=== PATIENT | male | born 1965 | race Caucasian/White ===

== ENCOUNTER 2018-02-05 16:43 | Emergency (ER) | payer OTHER, SELFPAY ==
[2018-02-05 16:48] VITALS: BP 168/94; PULSE 86; RESP 18; TEMP 36.9; O2SAT 97
--- NOTE | 2018-02-05 17:07 | ED.GENADUL ---
Disposition Clinical Impression: Rib fractures, Contusion of forearm, right Disposition: HOME Condition: Improving Instructions: Rib Fracture (ED) Additional Instructions: Use the incentive spirometer as directed several times throughout the hour every hour for the next several days to encourage deep breaths to prevent pneumonia. You can apply ice to the affected area several times daily. Take the oxycodone as needed and directed for pain. You can also try Tylenol and Motrin for pain. Call your primary care doctor tomorrow to schedule follow-up appointment for reevaluation. Return immediately to the emergency room with any worsening or new concerning symptoms per Prescriptions: OxyCODONE [Roxicodone] 5 mg PO Q6H PRN #15 tab PRN Reason: Pain Forms: Work Release Medical Decision Making - Lab Data Laboratory Tests 02/05/18 02/05/18 16:50 16:50 WBC 10.42 RBC 5.14 Hgb 16.3 Hct 46.9 MCV 91.2 MCH 31.7 MCHC 34.8 RDW 13.5 Plt Count 219 MPV 10.3 Immature Gran % 0.5 Neutrophils % 64.6 Lymphocytes % 21.3 Monocytes % 9.2 Eosinophils % 4.0 Basophils % 0.4 Absolute Neutrophils 6.73 H Absolute Lymphocytes 2.22 Absolute Monocytes 0.96 H Absolute Eosinophils 0.42 Absolute Basophils 0.04 Sodium 139 Potassium 4.2 Chloride 107 Carbon Dioxide 24.8 Anion Gap 7.2 BUN 21 H Creatinine 1.14 Estimated GFR/1.73 m2 >= 60.00 Glucose 85 Calcium 9.0 Magnesium 2.0 Total Bilirubin 0.4 Conjugated Bilirubin 0.09 AST 41 H ALT 57 Alkaline Phosphatase 99 Troponin I < 0.02 Total Protein 7.6 Albumin 4.2 Lipase 167 02/05/18 1717: [address] bpm. Sinus. No acute ST elevation or depression. - Radiology Data Radiology results: report reviewed, image reviewed CT head: No acute findings. CT cervical spine: No acute fracture dislocation. Right forearm x-ray: Negative CT chest with IV contrast: 1. Nondisplaced fracture posterior left ninth rib. Displaced fracture posterior left 10th rib. 2. Mild opacities in the lower lobes may represent atelectasis or contusions. CT abdomen and pelvis with IV contrast: Negative - Medical Decision Making 1700 --52-year-old male who presents with left lateral rib pain, left paraspinal thoracic and lumbar spine pain, and left mid and lower abdominal pain after fall down 5 feet out of truck after missing a step at work today. Patient has not taken anything for pain. Patient was able to ambulate back to the room. His airway is intact and speaking in full sentences. Lungs clear to auscultation. No crepitus. Due to lateral rib and abdominal pain, will place an IV, bolus IV fluids, blunt cardiac injury workup including troponin, EKG, CT chest abdomen and pelvis. Pt is also complaining of pain in right forearm but no deformity. No other extremity deformity. Will obtain right forearm x-ray. Patient cannot take morphine due to it making him feel crazy. Will give a dose of Dilaudid. 1814 --labs and imaging reviewed. Labs unremarkable. EKG unremarkable. CT head, C-spine, abdomen and pelvis, and forearm x-ray negative. CT chest notes nondisplaced ninth rib and displaced 10th rib fractures. They also note lower lobes atelectasis versus contusions. We will send imaging to [facility] trauma for evaluation if agree with pulmonary contusions and any recommendations. 1899 --discussed with [facility] trauma - unable to view imaging but states more than 75% of rib fractures have some sort of mild to moderate pulmonary contusion. Concern would mainly be if patient cannot pull good volumes with incentive spirometer. If patient able to pull greater than a liter with incentive spirometer, can be discharged home. If patient can pull 800 mL or less, continue attempts at incentive spirometer and medicate for pain control. If patient only pulls then 200 mL or is unable to consistently pull at least 800, recommend to admit for observation. 1999 --patient able to obtain 1250 mL lung volumes with incentive spirometer. Patient feels much better. Patient states he feels good to go home. We will send home with doses of oxycodone and prescription for home. Instructed on the importance of the incentive spirometer to prevent the development of pneumonia. Patient instructed to call his primary care doctor tomorrow to schedule follow-up appointment for reevaluation this week and return to the ER if worse. History of Present Illness - General Chief complaint: Trauma Stated complaint: TRAUMA Time Seen by Provider: 02/05/18 16:44 Source: patient Mode of arrival: ambulatory Limitations: no limitations - History of Present Illness Initial comments: Patient is a 52-year-old male who presents with left lower lateral rib and left lower abdominal pain today after fall out of truck at work. Patient states he missed a step and fell out of his truck and fell onto his left side. States he is unsure if he hit his head but does not remember a period of time after the accident. Unknown LOC. Denies vomiting. Patient is complaining of pain in his left lateral rib cage, left upper and lower back, and left lower abdomen. He denies neck pain. - Related Data Cyclobenzaprine [Flexeril] 10 mg PO TID PRN #14 tab 09/08/13 Ibuprofen 800 mg PO TID PRN #30 tablet 09/08/13 OxyCODONE/APAP 5 mg/325 mg [Percocet 5 mg/325 mg] 1 tab PO Q6H PRN #14 tab 09/08/13 Omeprazole 20 mg PO DAILY 12/26/13 Ondansetron ODT [Zofran Odt] 8 mg PO TID #10 tabef 04/15/16 Pantoprazole [Protonix] 40 mg PO DAILY #20 tabcr 04/15/16 OxyCODONE [Roxicodone] 5 mg PO Q6H PRN #15 tab 02/05/18 Allergies Allergy/AdvReac Type Severity Reaction Status Date / Time morphine Allergy Intermediate Psychosis Unverified 12/26/13 23:12 shellfish derived Allergy Unknown Nausea Unverified 04/15/16 14:56 Review of Systems Constitutional: denies: chills, fever Eyes: denies: eye pain ENT: denies: ear pain, dental pain Respiratory: denies: cough, shortness of breath Cardiovascular: denies: chest pain, dyspnea on exertion Gastrointestinal: denies: abdominal pain, nausea, vomiting Genitourinary: denies: urgency, dysuria, frequency Musculoskeletal: denies: back pain Skin: denies: rash, lesions Neurological: denies: headache, weakness, numbness Past Medical History - Past Medical History Medical history: GERD Surgical history: other (Lumbar fusion ?3, right rotator cuff repair, right leg surgery) Family history: CAD/[place] (mother), diabetes (father) - Social History Smoking status: current everyday smoker Alcohol use: rarely Drug use: none General Exam - General Limitations: no limitations General appearance: alert, in no apparent distress - Head Head exam: Present: atraumatic, normocephalic - Eye Eye exam: Present: PERRL, EOMI - ENT ENT exam: Present: normal orophraynx, mucous membranes moist, TM's normal bilaterally - Neck Neck exam: Present: normal inspection, other (No midline cervical spine tenderness) - Respiratory Respiratory exam: Present: normal lung sounds bilaterally, other (Given tenderness palpation of left lateral rib cage.). Absent: respiratory distress, wheezes, rales, rhonchi, stridor - Cardiovascular Cardiovascular Exam: Present: regular rate, normal rhythm. Absent: bradycardia, tachycardia - GI/Abdominal GI/Abdominal exam: Present: soft, tenderness (Left mid and lower quadrant), normal bowel sounds. Absent: distended, guarding, rebound, rigid - exam: Present: normal inspection - Extremities Exam Extremities exam: Present: other (Tenderness to palpation of right medial mid forearm without evidence of trauma. Pain in left anterior shoulder with range of motion without obvious deformity, tenderness to palpation or edema or ecchymosis. Full range of motion of hips bilaterally without pain. No pelvic instability.) - Back Exam Back exam: Present: normal inspection, other (Tenderness to palpation extending from left lateral paraspinal region down to left lateral lumbar spine region. No midline thoracic or lumbar spine tenderness.) - Neurological Exam Neurological exam: Present: alert, oriented X3. Absent: motor sensory deficit - Psychiatric Psychiatric exam: Present: normal affect - Skin Skin exam: Present: warm, dry, intact Course Vital Signs - 24 hr 02/05/18 16:48 Temperature 98.4 F Pulse 86 Respiratory 18 Rate Blood Pressure 168/94 Pulse Oximetry 97
--- NOTE | 2018-02-05 17:08 | DI.RPTCT_ITS ---
SYMPTOM/DIAGNOSIS: S/P FALL OUT OF TRUCK, ? LT RIB FX, LIVER LACERATION, INTRACRANIAL ABNORMALITY OR CERVICAL FX, TENDERNESS RT FOREARM NONCONTRAST HEAD CT: Comparison is made with 09/08/13. There is a normal encinas white matter differentiation. The ventricles are intact. The basilar cisterns are patent. No acute intracranial hemorrhage, infarct or midline shift. Mild mucosal thickening is seen in the ethmoid air cells and the left sphenoid sinus. No fluid levels are seen. The mastoid air cells are well pneumatized. No evidence of a calvarial fracture. IMPRESSION: No acute intracranial process. CERVICAL SPINE CT; There is normal alignment of the cervical spine. No acute fractures or subluxations are seen. There are degenerative changes seen in the cervical spine most marked at C 5-6 and C 6-7. The soft tissues are unremarkable. The lung apices are clear. IMPRESSION: No acute fracture or subluxation in the cervical spine. CHEST/ABDOMEN AND PELVIC CT: CT scan of the chest, abdomen and pelvis was performed following the uneventful administration of intravenous contrast material. There are no priors for comparison. ABDOMEN AND PELVIS: The liver, spleen, pancreas, gallbladder and adrenal glands are unremarkable. No evidence of organ injury is seen. The kidneys show normal and symmetric enhancement. There are right renal cysts present. No solid renal mass or obstruction is identified. The urinary bladder is intact. The reproductive organs are unremarkable. There is mild diverticulosis seen of the sigmoid colon but no evidence of acute diverticulitis. The bowel shows no evidence of obstruction or inflammation. There is a normal appendix present. There is atherosclerosis of the abdominal aorta but no aneurysmal dilatation. No significant abdominal or pelvic adenopathy, ascites or pneumoperitoneum is present. There is a small fat containing umbilical hernia. Post surgical changes are seen in the lumbar spine at L 5-S 1 with a laminectomy , disc fusion and posterior spinal rods. There is a nondisplaced fracture of the left transverse process of L 2. IMPRESSION: 1. Nondisplaced fracture of the left transverse process of L 2. Otherwise no acute abdomen or pelvic findings. CHEST: The thoracic aorta is of normal caliber. Heart size is within normal limits. No significant pericardial effusion is seen. Mild coronary artery calcification is present. No significant mediastinal, hilar or axillary adenopathy is present. No pleural effusion is seen. There is no evidence of a pneumothorax. Mild paraseptal emphysematous changes are present. There are infiltrates seen in the dependent portions of the lungs bilaterally. No consolidating infiltrates are seen. The tracheobronchial tree is unremarkable. There is a mildly displaced fracture of the posterior aspect of the left tenth rib. There is a nondisplaced fracture of the posterior aspects of the left eighth and ninth ribs. Degenerative changes are present in the spine. IMPRESSION: 1. Fractures involving the left eighth, ninth and tenth ribs as described. 2. Bilateral basilar dependent infiltrates. These may represent atelectasis or contusion. RIGHT FOREARM: Two views. No acute fracture or dislocation is seen. There is a well corticated tiny osseous fragment adjacent to the coronoid process likely reflecting old injury. No radiopaque foreign bodies are seen in the soft tissues. IMPRESSION: No acute abnormality.
--- NOTE | 2018-02-05 17:11 | ED.GENADUL_ITS ---
Disposition Clinical Impression: Rib fractures, Contusion of forearm, right Disposition: HOME Condition: Improving Instructions: Rib Fracture (ED) Additional Instructions: Use the incentive spirometer as directed several times throughout the hour every hour for the next several days to encourage deep breaths to prevent pneumonia. You can apply ice to the affected area several times daily. Take the oxycodone as needed and directed for pain. You can also try Tylenol and Motrin for pain. Call your primary care doctor tomorrow to schedule follow-up appointment for reevaluation. Return immediately to the emergency room with any worsening or new concerning symptoms per Prescriptions: OxyCODONE [Roxicodone] 5 mg PO Q6H PRN #15 tab PRN Reason: Pain Forms: Work Release Medical Decision Making - Lab Data Laboratory Tests 02/05/18 02/05/18 16:50 16:50 WBC 10.42 RBC 5.14 Hgb 16.3 Hct 46.9 MCV 91.2 MCH 31.7 MCHC 34.8 RDW 13.5 Plt Count 219 MPV 10.3 Immature Gran % 0.5 Neutrophils % 64.6 Lymphocytes % 21.3 Monocytes % 9.2 Eosinophils % 4.0 Basophils % 0.4 Absolute Neutrophils 6.73 H Absolute Lymphocytes 2.22 Absolute Monocytes 0.96 H Absolute Eosinophils 0.42 Absolute Basophils 0.04 Sodium 139 Potassium 4.2 Chloride 107 Carbon Dioxide 24.8 Anion Gap 7.2 BUN 21 H Creatinine 1.14 Estimated GFR/1.73 m2 >= 60.00 Glucose 85 Calcium 9.0 Magnesium 2.0 Total Bilirubin 0.4 Conjugated Bilirubin 0.09 AST 41 H ALT 57 Alkaline Phosphatase 99 Troponin I < 0.02 Total Protein 7.6 Albumin 4.2 Lipase 167 02/05/18 1717: 82 bpm. Sinus. No acute ST elevation or depression. - Radiology Data Radiology results: report reviewed, image reviewed CT head: No acute findings. CT cervical spine: No acute fracture dislocation. Right forearm x-ray: Negative CT chest with IV contrast: 1. Nondisplaced fracture posterior left ninth rib. Displaced fracture posterior left 10th rib. 2. Mild opacities in the lower lobes may represent atelectasis or contusions. CT abdomen and pelvis with IV contrast: Negative - Medical Decision Making 1700 --52-year-old male who presents with left lateral rib pain, left paraspinal thoracic and lumbar spine pain, and left mid and lower abdominal pain after fall down 5 feet out of truck after missing a step at work today. Patient has not taken anything for pain. Patient was able to ambulate back to the room. His airway is intact and speaking in full sentences. Lungs clear to auscultation. No crepitus. Due to lateral rib and abdominal pain, will place an IV, bolus IV fluids, blunt cardiac injury workup including troponin, EKG, CT chest abdomen and pelvis. Pt is also complaining of pain in right forearm but no deformity. No other extremity deformity. Will obtain right forearm x-ray. Patient cannot take morphine due to it making him feel crazy. Will give a dose of Dilaudid. 1814 --labs and imaging reviewed. Labs unremarkable. EKG unremarkable. CT head, C-spine, abdomen and pelvis, and forearm x-ray negative. CT chest notes nondisplaced ninth rib and displaced 10th rib fractures. They also note lower lobes atelectasis versus contusions. We will send imaging to [facility] trauma for evaluation if agree with pulmonary contusions and any recommendations. 1899 --discussed with [facility] trauma - unable to view imaging but states more than 75% of rib fractures have some sort of mild to moderate pulmonary contusion. Concern would mainly be if patient cannot pull good volumes with incentive spirometer. If patient able to pull greater than a liter with incentive spirometer, can be discharged home. If patient can pull 800 mL or less, continue attempts at incentive spirometer and medicate for pain control. If patient only pulls then 200 mL or is unable to consistently pull at least 800 , recommend to admit for observation. 1999 --patient able to obtain 1250 mL lung volumes with incentive spirometer. Patient feels much better. Patient states he feels good to go home. We will send home with doses of oxycodone and prescription for home. Instructed on the importance of the incentive spirometer to prevent the development of pneumonia. Patient instructed to call his primary care doctor tomorrow to schedule follow- up appointment for reevaluation this week and return to the ER if worse. History of Present Illness - General Chief complaint: Trauma Stated complaint: TRAUMA Time Seen by Provider: 02/05/18 16:44 Source: patient Mode of arrival: ambulatory Limitations: no limitations - History of Present Illness Initial comments: Patient is a 52-year-old male who presents with left lower lateral rib and left lower abdominal pain today after fall out of truck at work. Patient states he missed a step and fell out of his truck and fell onto his left side. States he is unsure if he hit his head but does not remember a period of time after the accident. Unknown LOC. Denies vomiting. Patient is complaining of pain in his left lateral rib cage, left upper and lower back, and left lower abdomen. He denies neck pain. - Related Data Cyclobenzaprine [Flexeril] 10 mg PO TID PRN #14 tab 09/08/13 Ibuprofen 800 mg PO TID PRN #30 tablet 09/08/13 OxyCODONE/APAP 5 mg/325 mg [Percocet 5 mg/325 mg] 1 tab PO Q6H PRN #14 tab 09/08 Omeprazole 20 mg PO DAILY 12/26/13 Ondansetron ODT [Zofran Odt] 8 mg PO TID #10 tabef 04/15/16 Pantoprazole [Protonix] 40 mg PO DAILY #20 tabcr 04/15/16 OxyCODONE [Roxicodone] 5 mg PO Q6H PRN #15 tab 02/05/18 Allergies Allergy/AdvReac Type Severity Reaction Status Date / Time morphine Allergy Intermediate Psychosis Unverified 12/26/13 23:12 shellfish derived Allergy Unknown Nausea Unverified 04/15/16 14:56 Review of Systems Constitutional: denies: chills, fever Eyes: denies: eye pain ENT: denies: ear pain, dental pain Respiratory: denies: cough, shortness of breath Cardiovascular: denies: chest pain, dyspnea on exertion Gastrointestinal: denies: abdominal pain, nausea, vomiting Genitourinary: denies: urgency, dysuria, frequency Musculoskeletal: denies: back pain Skin: denies: rash, lesions Neurological: denies: headache, weakness, numbness Past Medical History - Past Medical History Medical history: GERD Surgical history: other (Lumbar fusion 3, right rotator cuff repair, right leg surgery) Family history: CAD/[place] (mother), diabetes (father) - Social History Smoking status: current everyday smoker Alcohol use: rarely Drug use: none General Exam - General Limitations: no limitations General appearance: alert, in no apparent distress - Head Head exam: Present: atraumatic, normocephalic - Eye Eye exam: Present: PERRL, EOMI - ENT ENT exam: Present: normal orophraynx, mucous membranes moist, TM's normal bilaterally - Neck Neck exam: Present: normal inspection, other (No midline cervical spine tenderness) - Respiratory Respiratory exam: Present: normal lung sounds bilaterally, other (Given tenderness palpation of left lateral rib cage.). Absent: respiratory distress, wheezes, rales, rhonchi, stridor - Cardiovascular Cardiovascular Exam: Present: regular rate, normal rhythm. Absent: bradycardia , tachycardia - GI/Abdominal GI/Abdominal exam: Present: soft, tenderness (Left mid and lower quadrant), normal bowel sounds. Absent: distended, guarding, rebound, rigid - exam: Present: normal inspection - Extremities Exam Extremities exam: Present: other (Tenderness to palpation of right medial mid forearm without evidence of trauma. Pain in left anterior shoulder with range of motion without obvious deformity, tenderness to palpation or edema or ecchymosis. Full range of motion of hips bilaterally without pain. No pelvic instability.) - Back Exam Back exam: Present: normal inspection, other (Tenderness to palpation extending from left lateral paraspinal region down to left lateral lumbar spine region. No midline thoracic or lumbar spine tenderness.) - Neurological Exam Neurological exam: Present: alert, oriented X3. Absent: motor sensory deficit - Psychiatric Psychiatric exam: Present: normal affect - Skin Skin exam: Present: warm, dry, intact Course Vital Signs - 24 hr 02/05/18 16:48 Temperature 98.4 F Pulse 86 Respiratory 18 Rate Blood Pressure 168/94 Pulse Oximetry 97
[2018-02-05 17:18] LABS: Abs Immature Grans 0.05 k/cumm (0.0-0.09); Absolute Basophil Count 0.04 k/cumm (0.0-0.2); Absolute Eosinophil Count 0.42 k/cumm (0.0-0.7); Absolute Lymphocyte Count 2.22 k/cumm (1.2-3.4); Absolute Monocyte Count 0.96 k/cumm (0.11-0.7); Absolute Neutrophil Count 6.73 k/cumm (1.2-6.7); Basophils % 0.4; HCT 46.9 % (40.0-50.0); HGB 16.3 g/dL (13.5-17.5); Immature Grans % 0.5; Lymphocytes % 21.3; Mean Corp. HGB Concentration 34.8 g/dL (32.0-36.0); Mean Corpuscular Hemoglobin 31.7 pg (27.0-33.0); Mean Corpuscular Volume 91.2 fL (80-95); Mean Platelet Volume 10.3 fL (8.0-11.0); Monocytes % 9.2; Neutrophils % 64.6; Platelet Count 219 x1000/uL (130-400); RBC 5.14 m/cumm (4.50-6.00); RBC Distribution Width 13.5 % (11.8-14.1); White Blood Cell Count 10.42 k/cumm (4.4-10.8)
[2018-02-05] MEDS: HYDROmorphone 2 MG/ML VIAL 1 MG IVP ×2 (17:31→18:40)
[2018-02-05 17:32] LABS: ALT 57 U/L (12-78); AST 41 U/L (15-37); Albumin 4.2 g/dL (3.4-5.0); Alkaline Phosphatase 99 U/L (46-116); Anion Gap 7.2 mmol/L (3-11); BUN 21 mg/dL (7-18); Bilirubin, Direct 0.09 mg/dL (0.00-0.20); Bilirubin, Total 0.4 mg/dL (0.2-1.0); CO2 24.8 mmol/L (21.0-32.0); CREATININE 1.14 mg/dL (0.70-1.30); Chloride 107 mmol/L (98-107); Glucose 85 mg/dL (70-100); Lipase 167 U/L (73-393); Potassium 4.2 mmol/L (3.5-5.1); Sodium 139 mmol/L (136-145); Total Protein 7.6 g/dL (6.4-8.2); Troponin I < 0.02 ng/mL (0.00-0.06)
[2018-02-05] MEDS: Normal Saline 1,000 ML 1000 ML IV (17:33)
--- NOTE | 2018-02-05 18:13 | DI.VRAD_ITS ---
EXAM: CT Head Without Intravenous Contrast EXAM DATE/TIME: 02/05/2018 5:10 PM CLINICAL HISTORY: 52 years old, male; Injury or trauma; Fall; Initial encounter; Patient HX: S/P fall off trailer; Additional info: R/O acute intracranial abnormality/cervical FX TECHNIQUE: Axial computed tomography images of the head/brain without intravenous contrast. Coronal and sagittal reformatted images were created and reviewed. COMPARISON: CT - HEAD WITHOUT CONTRAST 09/08/2013 1:11 PM FINDINGS: Brain: Normal. No hemorrhage. No significant white matter disease. No edema. Ventricles: Normal. No ventriculomegaly. Bones/joints: Normal. No acute fracture. Sinuses: There is mucosal thickening in the left sphenoid sinus. Mastoid air cells: Normal as visualized. No mastoid effusion. Soft tissues: Normal. IMPRESSION: No evidence of intracranial hemorrhage or calvarial fracture.There has been no significant change in comparison to the prior examination. Remainder of non-emergent findings as described above. EXAM: CT Cervical Spine Without Intravenous Contrast EXAM DATE/TIME: 02/05/2018 5:10 PM CLINICAL HISTORY: 52 years old, male; Injury or trauma; Fall; Initial encounter; Patient HX: S/P fall off trailer; Additional info: R/O acute intracranial abnormality/cervical FX TECHNIQUE: Axial computed tomography images of the cervical spine without intravenous contrast. Coronal and sagittal reformatted images were created and reviewed. COMPARISON: CT - HEAD WITHOUT CONTRAST 09/08/2013 1:11 PM FINDINGS: Vertebrae: There is no evidence of acute fracture.There is normal sagittal alignment. Discs/Spinal canal/Neural foramina: There is narrowing of the C5-6 disc space with a reactive end plate sclerosis and marginal osteophytes. Soft tissues: Unremarkable. Lung apices: Normal. IMPRESSION: No evidence of acute fracture or dislocation. Remainder of non-emergent findings as described above. Dictated and Authenticated by: Maria Esther Cruz MD. Ordering:ADEOLA TSAI MD
--- NOTE | 2018-02-05 18:14 | DI.VRAD_ITS ---
EXAM: XR Right Forearm, 2 Views EXAM DATE/TIME: 02/05/2018 6:00 PM CLINICAL HISTORY: 52 years old, male; Injury or trauma; Fall; Initial encounter; Sprain or strain; Arm, lower; Right TECHNIQUE: XR Right forearm 2 views. COMPARISON: CR - RIGHT FOREARM 11/08/2011 4:24 PM FINDINGS: Bones/joints: Well-corticated ossific fragment adjacent to the coronoid process may represent old avulsion fracture. No acute fracture is identified. Soft tissues: Normal. IMPRESSION: No acute fracture is identified. Dictated and Authenticated by: Angel Chan MD. Ordering:ADEOLA TSAI MD
--- NOTE | 2018-02-05 18:24 | DI.VRAD_ITS ---
EXAM: CT Chest With Intravenous Contrast CLINICAL HISTORY: 52 years old, male; Injury or trauma; Fall; Patient HX: S/P fall out off trailer; Additional info: R/O l rib fractures/[place] TECHNIQUE: Axial computed tomography images of the chest with intravenous contrast. Coronal and sagittal reformatted images were created and reviewed. COMPARISON: No relevant prior studies available. FINDINGS: Lungs: Mild opacities in the lower lobes may represent atelectasis or contusions. Pleural space: Unremarkable. No pneumothorax. No significant effusion. Heart: Unremarkable. No cardiomegaly. No significant pericardial effusion. Bones/joints: Nondisplaced fracture posterior left ninth rib. Displaced fracture posterior left 10th rib. No dislocation. Soft tissues: Unremarkable. Vasculature: Unremarkable. No thoracic aortic aneurysm. Lymph nodes: Unremarkable. No enlarged lymph nodes. IMPRESSION: 1. Nondisplaced fracture posterior left ninth rib. Displaced fracture posterior left 10th rib. 2. Mild opacities in the lower lobes may represent atelectasis or contusions. EXAM: CT Abdomen and Pelvis With Intravenous Contrast CLINICAL HISTORY: 52 years old, male; Injury or trauma; Fall; Patient HX: S/P fall out off trailer; Additional info: R/O l rib fractures/[place] l[place] TECHNIQUE: Axial computed tomography images of the abdomen and pelvis with intravenous contrast. Coronal and sagittal reformatted images were created and reviewed. COMPARISON: No relevant prior studies available. FINDINGS: ABDOMEN: Liver: No evidence of a liver laceration No mass. Gallbladder and bile ducts: Unremarkable. No calcified stones. No ductal dilation. Pancreas: Unremarkable. No mass. No ductal dilation. Spleen: Unremarkable. No splenomegaly. Adrenals: Unremarkable. No mass. Kidneys and ureters: 15 mm cyst in the right kidney No hydronephrosis. Stomach and bowel: Unremarkable. No obstruction. No mucosal thickening. PELVIS: Appendix: No findings to suggest acute appendicitis. Bladder: Unremarkable. No mass. Reproductive: Unremarkable as visualized. ABDOMEN and PELVIS: Intraperitoneal space: Unremarkable. No free air. No significant fluid collection. Bones/joints: No acute fracture. No dislocation. Soft tissues: Unremarkable. Vasculature: Unremarkable. No abdominal aortic aneurysm. Lymph nodes: Unremarkable. No enlarged lymph nodes. Tubes, lines and devices: Internal fixation device L5/S1 IMPRESSION: No acute findings. Dictated and Authenticated by: Angel Chan MD. Ordering:ADEOLA TSAI MD
[2018-02-05] MEDS: oxyCODONE 10 MG TAB PO (19:47)
[2018-02-05] MEDS: oxyCODONE 5 MG TAB 10 MG PO (20:47)
[2018-02-05 21:08] VITALS: BP 162/98; PULSE 76; RESP 18; O2SAT 95
--- NOTE | 2018-02-06 09:18 | PDOC.ERCMPRO ---
Care Management Progress Note 02/06-Dr. Gonzalez requested assistance with an occupational health f/u in two days for rib fractures. Called [facility] and spoke with Carolann. Craolann scheduled Reji for Monday, 02/09 at 1045 with Jacqueline. Called Reji back and he stated he could make appt. Reji works for [employer]. Reji has not completed the first report of injury but states he will call [employer] this morning and complete appropriate paperwork.
--- NOTE | 2018-02-06 09:20 | CMPROGNOTE_ITS ---
Care Management Progress Note 02/06-Dr. Gonzalez requested assistance with an occupational health f/u in two days for rib fractures. Called [facility] and spoke with Carolann. Carolann scheduled Reji for Monday , 02/09 at 1045 with Jacqueline. Called Reji back and he stated he could make appt. Reji works for [employer]. Reji has not completed the first report of injury but states he will call [employer] this morning and complete appropriate paperwork.
== END 2018-02-05 20:58 | disposition home or self-care (01) ==
PROVIDERS: Emergency Provider Physician Assistant; PCP General Practice
DX: S22.42XA Multiple fractures of ribs, left side, initial encounter for closed fracture (principal); S50.11XA Contusion of right forearm, initial encounter; R10.30 Lower abdominal pain, unspecified; V68.0XXA Driver of heavy transport vehicle injured in noncollision transport accident in nontraffic accident, initial encounter; W10.8XXA Fall (on) (from) other stairs and steps, initial encounter
CPT/HCPCS: 36415; 74177; 80053; 80076; 83690; 93005; 96361; 96374; 99285; 70450; 71260; 72125; 73090; 83735; 84484; 85025; 93010

== ENCOUNTER 2018-02-09 04:39 | Emergency (ER) | payer OTHER, SELFPAY ==
[2018-02-09 04:44] VITALS: BP 159/96; PULSE 85; RESP 20; TEMP 36.7; O2SAT 93
--- NOTE | 2018-02-09 04:50 | DI.REPORT_ITS ---
SYMPTOM/DIAGNOSIS: LT CHEST PAIN, H/O RIB FRACTURES, RECENT TRAUMA FRONTAL AND LATERAL CHEST: Comparison is made with 04/15/16. Heart size and pulmonary vasculature are within normal limits. There is poor inspiration. There is an area of consolidation in the left lung base. There may also be a small left pleural effusion. No pneumothorax is identified. Degenerative changes are seen in the spine. IMPRESSION: Left lower lobe consolidation. This may represent atelectasis or pneumonia. A follow up chest xray to document resolution of the consolidation is recommended in this patient.
--- NOTE | 2018-02-09 04:53 | ED.GENADUL ---
Disposition Clinical Impression: Multiple fractures of ribs of left side Disposition: HOME Instructions: Rib Fracture (ED) Additional Instructions: Continue to use incentive spirometer every few hours while awake for the next 2 weeks. Please follow-up with your primary care physician and occupational health. Please take ibuprofen 600 mg by mouth every 6-8 hours as needed for pain for the next few days. Please take tylenol (acetaminophen) 650 mg every 6 hours as needed for pain. Take oxycodone as prescribed. Use Lidoderm patches as prescribed. Return to the emergency department immediately for any worsening or new concerning symptoms. Prescriptions: Lidocaine 5% [Lidoderm 5% Patch] 1 each TP DAILY PRN PRN #15 patch PRN Reason: Pain Referrals: Levi Nelson MD [Primary Care Provider] - Occupational Medicine [Outside] Medical Decision Making - Medical Decision Making 5:00 --52-year-old male here with worsening left chest pain four days after fall resulting in nondisplaced fractures of the posterior aspects of the left eighth and ninth ribs, as well as mildly displaced fracture of the posterior aspect of the left 10th rib and bilateral basilar pulmonary contusion versus atelectasis. Plan to treat with Toradol IM as well as morphine IM. Consider acute pneumothorax versus pain from displaced rib fracture. Plan to chest x-ray. 5:40 --chest x-ray interpreted by radiology: Nonspecific left base atelectasis/consolidation. No pneumothorax. Patient reassessed and notes improved pain after medication. I reviewed pain medication with patient including: Oxycodone, ibuprofen and acetaminophen as well as Lidoderm patches. Patient has follow-up appointment occupational medicine today which I advised he keep. Patient was advised to return to the ER immediately should he have any worsening or new concerning symptoms. History of Present Illness - General Chief complaint: Chest/Rib Stated complaint: UNKNOWN Time Seen by Provider: 02/09/18 04:50 Source: patient, family, RN notes reviewed Mode of arrival: ambulatory Limitations: no limitations - History of Present Illness Initial comments: 52-year-old male recently seen here in ED and diagnosed with rib fractures and pulmonary contusion after fall from 5 feet to the ground on 02/05, presenting tonight with worsening left lateral chest pain. Pain is severe. Worse with deep inspiration. Pain is localized to his left lower lateral chest. Patient has no associated shortness of breath. Patient has been taking oxycodone as prescribed and notes that he had had improvement in pain yesterday but that it was worse tonight after an episode of sneezing. - Related Data Ibuprofen 800 mg PO TID PRN #30 tablet 09/08/13 Omeprazole 20 mg PO DAILY 12/26/13 Ondansetron ODT [Zofran Odt] 8 mg PO TID #10 tabef 04/15/16 Pantoprazole [Protonix] 40 mg PO DAILY #20 tabcr 04/15/16 OxyCODONE [Roxicodone] 5 mg PO Q6H PRN #15 tab 02/05/18 Lidocaine 5% [Lidoderm 5% Patch] 1 each TP DAILY PRN PRN #15 patch 02/09/18 Allergies Allergy/AdvReac Type Severity Reaction Status Date / Time shellfish derived Allergy Unknown Nausea Unverified 02/09/18 04:46 hydromorphone [From Dilaudid] AdvReac Psychosis Unverified 02/09/18 04:53 Review of Systems Respiratory: denies: shortness of breath Cardiovascular: chest pain Comment: All other systems reviewed and negative Past Medical History - Past Medical History Medical history: GERD Surgical history: other (Lumbar fusion ?3, right rotator cuff repair, right leg surgery) Family history: CAD/[place] (mother), diabetes (father) - Social History Alcohol use: rarely Drug use: none General Exam - General Limitations: no limitations General appearance: alert, other (in pain with certain positions) - Head Head exam: Present: normocephalic - ENT ENT exam: Present: mucous membranes moist - Neck Neck exam: Present: other (No JVD) - Respiratory Respiratory exam: Present: normal lung sounds bilaterally, other (Splinting with deep inspiration). Absent: respiratory distress, wheezes, rales, rhonchi - Cardiovascular Cardiovascular Exam: Present: regular rate, normal rhythm, normal heart sounds - GI/Abdominal GI/Abdominal exam: Present: soft. Absent: distended, tenderness - Neurological Exam Neurological exam: Present: alert. Absent: altered - Psychiatric Psychiatric exam: Present: normal affect - Skin Skin exam: Present: warm, dry, intact. Absent: cyanosis, diaphoretic Course Vital Signs - 24 hr 02/09/18 04:44 Temperature 36.7 C Pulse 85 Respiratory 20 Rate Blood Pressure 159/96 Pulse Oximetry 93 L
[2018-02-09] MEDS: MORPHine 10 MG/ML VIAL 4 MG IM (05:04)
[2018-02-09] MEDS: Ketorolac 15 MG/ML VIAL IM (05:04)
[2018-02-09] MEDS: Lidocaine 5% Patch 1 PATCH TP ×2 (05:13→05:23)
--- NOTE | 2018-02-09 05:32 | DI.VRAD_ITS ---
EXAM: XR Chest, 2 Views CLINICAL HISTORY: 52 years old, male; Pain; Chest pain; Left-sided chest pain; Patient HX: Recent trauma 02/05/18 with known left 9th and 10th rib FX and extreme pain this am after coughing TECHNIQUE: Frontal and lateral views of the chest. COMPARISON: CR - CHEST 2 VIEWS PA,LAT 04/15/2016 3:39 PM FINDINGS: Lungs: Nonspecific left base atelectasis/consolidation. Pleural space: Unremarkable. No pneumothorax. Heart: Unremarkable. No cardiomegaly. Mediastinum: Unremarkable. Bones/joints: Unremarkable. IMPRESSION: Nonspecific left base atelectasis/consolidation. Dictated and Authenticated by: Tito Suresh MD. Ordering:MONO PAGE MD
[2018-02-09 05:52] VITALS: BP 159/96; PULSE 85; RESP 20; TEMP 36.7; O2SAT 97
[2018-02-09 05:53] VITALS: O2SAT 98
== END 2018-02-09 05:52 | disposition home or self-care (01) ==
LOC: ER 02-10 10:14
PROVIDERS: Emergency Provider Student in an Organized Health Care Education/Training Program; PCP General Practice
DX: S22.42XA Multiple fractures of ribs, left side, initial encounter for closed fracture (principal); V68.0XXA Driver of heavy transport vehicle injured in noncollision transport accident in nontraffic accident, initial encounter; W10.8XXA Fall (on) (from) other stairs and steps, initial encounter
CPT/HCPCS: 96372; 99284; 71046; J1885; J2270

== ENCOUNTER 2018-02-09 11:12 | Outpatient (CLI) | payer OTHER, SELFPAY ==
--- NOTE | 2018-02-09 15:41 | ONE_ITS ---
DATE OF SERVICE: February 09, 2018 CHIEF COMPLAINT: Fall from truck. 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 ASSESSMENT: 1. Rib fractures 8, 9, and 10. 2. Lumbar fracture L2 left transverse process. 3. Bilateral fine rales. PLAN: 1. Work restrictions per Work Status Form - no work. 2. Activity as tolerated. 3. [place] diet to minimize nausea. 4. Continue with prescribed Lidoderm patch, Tylenol, ibuprofen. 5. Cough and deep breathe q1h while awake. 6. ROM cervical and lumbar spine, shoulder and hips q1h while awake. 7. Temp b.i.d. if more than 100.4, cough and deep breathe and re-take temp. Monitor for increased trends. 8. Neurology consult. 9. Follow-up one week; return to clinic or E.D. sooner if condition worsens. More than 50% of this visit spent in the planning and coordination of care. Plan of care reviewed with patient, who verbalized understanding and agreement. ++++++++++++++++++ SUBJECTIVE: Nacho presents with complaints of back and left-sided rib pain per the instructions of [facility] E.D. On 02/05/18 Nacho fell approximately five feet out of a truck at a work site. He does not recall what happened after he hit the ground, but was informed by his coworkers they found him rolling on the ground in pain. Nacho was able to drive the truck back to his employer, but recalls he was in significant pain. Nacho then presented to [facility] E.D. After a trauma workup, which included labs and imaging, he was prescribed Oxycodone fifteen tabs for pain with instructions to follow-up in Occupational Medicine. He did not return to work. Around 0200 on 02/09/18 Nacho had significant discomfort after he coughed, which resulted in a stabbing sensation in his back, which then radiated to his chest. He presented again to the [facility] E.D. Nacho was treated with Toradol and morphine. A repeat chest x-ray was obtained, an abdominal wrapped was placed, and he was prescribed ibuprofen, Tylenol and Lidoderm patches, as well as to continue with Oxycodone. Currently Nacho states the prescribed Oxycodone did not give him any relief, so he combined it with pain pills he had left over after his shoulder surgery - some relief noted. He notes some relief with the two Lidoderm patches placed in the E.D. His sleep is impaired due to the discomfort; the maximum amount of rest he can achieve at any given time is one hour duration, and that is when positioned in a reclining chair. Coughing, sneezing and laughing causes him significant discomfort. His appetite is diminished and he has had intermittent nausea, but no vomiting. He is able to drink fluids without difficulty. Nacho states he normally has a headache and the headache he currently has is no different compared to before the injury. REVIEW OF SYSTEMS: Denies chest pain, palpitations. Denies shortness of breath, wheezing. Denies visual changes; (+) WE[place]EIN Denies GI/ distress. PAST MEDICAL HISTORY: 1. GERD. 2. Hearing diminished bilaterally. 3. Hiatal hernia. 4. Lumbar fusion x3. 5. Bilateral RC repair. 6. Right leg compound fracture. MEDICATIONS: 1. Oxycodone 5 mg p.o. q6h p.r.n. (15). 2. Ibuprofen 600 mg q6-8h p.r.n. 3. Tylenol 650 mg q6-8h p.r.n. 4. Lidoderm patches 5% (15). ALLERGIES: 1. Shellfish - nausea. 2. Dilaudid - psychosis. SOCIAL: ETOH: None. Tobacco: 1 ppd. Exercise: With employment. ( = [place]). OBJECTIVE: VITAL SIGNS: 130/80; 99.4 -- 80 -- 18. Height: 6-0. Weight: 288. BMI: 30.9. O2 saturation on room air 96%. PHQ-9 = 2. GENERAL: 52-year-old white male. Alert, cooperative, conversation appropriate. Slow, cautious, nonantalgic gait. Rounded posture. Abdominal wrap in place and remained in place during examination. Demonstrated pain behaviors with position changes. Remained standing for the majority of the appointment. CARDIAC: HRR, no murmurs or extra heart sounds. RESPIRATORY: Slight fine rales bilaterally upon auscultation; respirations unlabored. SPINE: Cervical ROM grossly normal with complaints of stretching discomfort. LUMBAR ROM: Right lateral bend to 10 degrees; remaining positions limited to a few degrees due to discomfort. UPPER EXTREMITIES: Symmetric. Right wrist, elbow and shoulder ROM within normal limits. Left wrist and elbow ROM within normal limits. Left shoulder limited to 30 degrees flexion, abduction, extension. DIAGNOSTIC IMAGIN. Non-contrast head CT impression: no acute intracranial process. 2. Cervical spine CT impression: no acute fracture or subluxation in the cervical spine. 3. Chest, abdomen and pelvis CT impression: there is a nondisplaced fracture of the left transverse process of L2. Fractures involving the left 8th and 9th (nondisplaced) and 10th (displaced) ribs. Bilateral basilar dependent infiltrate. These may represent atelectasis or contusion. 4. Right arm impression: no acute abnormality.
== END 2018-02-09 11:13 ==
PROVIDERS: PCP General Practice; Visit Provider Nurse Practitioner Family
DX: S22.42XA Multiple fractures of ribs, left side, initial encounter for closed fracture (principal); W10.8XXA Fall (on) (from) other stairs and steps, initial encounter; R07.81 Pleurodynia
CPT/HCPCS: 99203

== ENCOUNTER 2018-02-13 14:59 | Emergency (ER) | payer OTHER, SELFPAY ==
[2018-02-13 15:09] VITALS: BP 158/103; PULSE 76; RESP 16; TEMP 37.2; O2SAT 96
--- NOTE | 2018-02-13 15:52 | DI.RAD_ITS ---
SYMPTOM/DIAGNOSIS: KNOWN FRACTURES, WORSENING PAIN AND SOB PA AND LATERAL CHEST AND LEFT RIBS: Comparison is made with 02/09/18. Heart size and pulmonary vasculature are within normal limits. There is a left basilar infiltrate which may represent atelectasis or pneumonia. There are fractures again noted at the posterolateral aspects of the left seventh, eighth, ninth and tenth ribs. No pneumothorax is seen. No pleural effusion is identified. Degenerative changes are seen in the spine. IMPRESSION: 1. Left basilar infiltrate which shows some improvement compared to 02/09/18. This may represent resolving atelectasis or pneumonia. 2. Nondisplaced left seventh, eighth, ninth and tenth rib fractures.
--- NOTE | 2018-02-13 15:56 | W.ED.GENAD ---
Discharge Plan Disposition Patient Disposition: HOME Condition: Fair Discharge Details Chief Complaint: Chest/Rib Clinical Impression: Multiple rib fractures Primary Care Provider: Levi Nelson ED Provider: Shikha Pizarro Home Meds and New Rx's Prescriptions: New oxycodone 5 mg capsule 5 mg PO ONCE PRN (Reason: pain) Qty: 20 RF: 0 naloxone [Narcan] 4 mg/actuation spray,non-aerosol 1 spray MICHEL ONCE PRN (Reason: opioid overdose) Qty: 2 RF: 0 Continue pantoprazole 40 MG tablet,delayed release (DR/EC) 40 mg PO DAILY Qty: 20 RF: 0 ondansetron 8 MG tablet,disintegrating 8 mg PO TID Qty: 10 RF: 0 lidocaine [Lidoderm] 1 PATCH adhesive patch,medicated 1 ea Topical DAILY PRN PRN (Reason: Pain) Qty: 15 RF: 0 ibuprofen [Ibuprofen IB] 200 mg Tablet 600 mg PO QID PRNRF: 0 acetaminophen [Tylenol] 325 mg Capsule 325 mg PO Q6H PRNRF: 0 Discontinued oxycodone 5 MG tablet 5 mg PO Q6H PRN (Reason: Pain) Qty: 15 RF: 0 Discharge Instructions Instructions: Rib Fracture (ED) Additional Instructions: Encourage hydration. continue with incentive spirometery as previously advised. You may use 600mg of Ibuprofen every 6 hours as needed for pain, next dose may be taken at 0100AM. You may use 1,000mg of Tylenol every 6 hours as needed for pain Oxycodone as prescribed, as needed, for pain. Take only as prescribed and as needed. Keep this in a safe place. Please follow up with Occupational Health in the next 3 days. If you develop new/worsening symptoms please seek care urgently once again. Referrals: Rachna Brasher NP [NURSE PRACTITIONER] - 3 days ([phone]) Discharge Data Discharge Date/Time-TO BE ENTERED AT DEPARTURE: 02/13/18 17:52 Medical Decision Making MDM Narrative Medical decision making narrative: Patient presents with chief complaint of chest wall pain. Patient suffered from displaced posterior 10th rib fracture and nondisplaced fracture of the 9th rib posteriorly on 02/05/18. Presents today with sudden increase in pain and SOB after sneezing last night. Patient had been prescribed oxycodone but has since run out of this. He appears uncomfortable and is breathing shallow. Lung sounds are present and clear in all miller. Patient was seen here a few days ago for sudden onset of increased pain, responded well to Toradol and Morphine IM, will repeat this dosing. Will obtain repeat imaging. Patient has been using IS at home but reports he has lower inspiratory effort today. CXR reviewed by radiologist. They note left lower lobe atelecatsis/consolidation. No pneumothorax. Fractures of the psterior lateral aspec of the left 7th, 8th, 9th, 10th ribs. Changes to prior biceps tenodesis at the left humerus proximal diaphysis. Patient was noted to have consolidation as above on previous imaging. This is more fractures than were initially visualized. Patient given Toradol and IM Morphine. He reports that pain is only minimally improved. Reports that pain is now 9/10. Requesting more medication. Another dose of Morphine was given and patient feels much improved. Patient requesting further home po narcotics. I reviewed PDMP, patient has only received the one narcotic prescription from the time of his initial ER evaluation for this injury in the past year. I will give him further, patient is clearly uncomfortable. They have not been utilizing Tylenol and Ibuprofen appropriately, we discussed more appropriate dosing to help with pain. We discussed splinting when coughing/sneezing. Advised that he continue with IS use. We discussed risks/benefits of narcotic usage, encouraged safe usage and storage. Advised close f/u with occupational health. Encouraged hydration. All of his questions and concerns were addressed, he is in agreement with this plan. HPI - General Adult General Mode of arrival: ambulatory. Date/Time Provider Initiated Documentation: 02/13/18 15:06. Limitations to Documentation: no limitations. Information obtained by: patient and family. History of Present Illness 52 year old M presents to the emergency department with the chief complaint of Rib pain, described as severe, with intensity rated at 10. Quality is described as stabbing, and is localized to the chest (left posterior chest wall). Patient reports no radiation. Patient started experiencing this day(s) and it has been constant. No relieving factors improve symptom(s), Movement worsens symptoms (deep breathing, coughing, sneezing) . Patient notes no other symptoms.; denies cough and fever/chills. Patient did receive the following treatments prior to arrival, NSAID and other (topical patches) Related Data Home Medications Medication Instructions Recorded Confirmed acetaminophen [Tylenol] 325 mg PO Q6H PRN 02/13/18 02/13/18 ibuprofen [Ibuprofen IB] 600 mg PO QID PRN 02/13/18 02/13/18 Previous Rx's Medication Instructions Recorded ondansetron 8 mg PO TID #10 tabef 04/15/16 pantoprazole 40 mg PO DAILY #20 tabcr 04/15/16 lidocaine [Lidoderm 5% Patch] 1 ea TOPICAL DAILY PRN PRN #15 02/09/18 patch naloxone [Narcan] 1 spray MICHEL ONCE PRN #2 each 02/13/18 oxycodone 5 mg PO ONCE PRN #20 cap 02/13/18 Allergies Allergy/AdvReac Type Severity Reaction Status Date / Time shellfish derived Allergy Unknown Nausea Verified 02/13/18 15:15 hydromorphone [From Dilaudid] AdvReac Severe Psychosis Verified 02/13/18 15:16 General Stated Complaint: Chest/Rib MIACELA: 3 Review of Systems Constitutional Denies body ache(s) and Denies chills Cardiovascular Reports as per HPI, Reports chest pain (posterior chest wall pain), Reports chest pain at rest (chest wall pain, worse with inspiration), Reports chest pain with activity (chest wall pain, pain is posterior left chest wall), Denies syncope, Denies pedal edema, Denies edema and Reports dyspnea on exertion (dyspnea associated with chest wall pain) Respiratory Reports as per HPI, Denies cough, Denies hemoptysis, Reports pain on inspiration, Reports pain with cough, Reports dyspnea on exertion (dyspnea associated with chest wall pain), Denies stridor and Denies wheezing Gastrointestinal Denies abdominal pain, Denies nausea and Denies vomiting Musculoskeletal Reports as per HPI Neurologic Denies syncope Allergic/Immunologic Denies wheezing PFSH Medical History Hearing loss (Acute) Leg fracture, right (Acute) GERD (gastroesophageal reflux disease) (Chronic) Hiatal hernia (Chronic) Social History marital status: lives independently: No 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[employer], 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 Smoking/Tobacco Use Status: Current every day details: ETOH -- none Surgical History History of lumbar fusion (Acute) H/O shoulder surgery (Chronic) Exam Const General: cooperative, healthy appearing and acute distress (patient appears very uncomfortable, particularly with movement or coughing) mild Nutritional Appearance: average body habitus and well nourished Orientation: alert and awake Chest Chest: abnormal inspection of the chest, abnormal palpation of chest wall (patient has chest wall tenderness over posterior left chest wall, he has Lidoderm patch in place) and no crepitus Resp Effort & Inspection: normal respiratory effort, able to speak in complete sentences, no audible wheezes, decreased respiratory effort (patient appears to be self splinting and taking shallowing breathing to help with chest wall pain), no nasal flaring, no pursed lip breathing, no respiratory distress, no retractions, no segmental paradox chest wall movement, no stridor, no tracheal deviation and no tripod positioning Auscultation: clear to auscultation bilaterally, breath sounds present, lung sounds not diminished, no rales and no wheezes Cardio Rate: regular rate Rhythm: regular rhythm Heart Sounds: S1 normal Skin General skin exam: no rashes or lesions noted (patient has patch in place over area of maximal discomfort) Lesions: no lesions Rashes: no rashes Wounds: no wounds Neuro General: alert and awake Cognition: normal cognition Speech: speech normal Gait: normal gait Psych Appearance: grossly normal Mental Status: mental status grossly normal Speech and Movement: speech and movement normal Affect: normal affect Attitude: cooperative Course Vital Signs Temperature 37.2 C 02/13/18 15:09 Pulse 76 02/13/18 15:09 Respiratory Rate 16 02/13/18 15:09 Blood Pressure 158/103 H 02/13/18 15:09 Pulse Oximetry 96 02/13/18 15:09 Temperature 37.2 C 02/13/18 15:09 Pulse 76 02/13/18 15:09 Respiratory Rate 16 02/13/18 15:09 Blood Pressure 158/103 H 02/13/18 15:09 Pulse Oximetry 96 02/13/18 15:09
--- NOTE | 2018-02-13 16:04 | ED.GENADUL_ITS ---
Discharge Plan Disposition Patient Disposition: HOME Condition: Fair Discharge Details Chief Complaint: Chest/Rib Clinical Impression: Multiple rib fractures Primary Care Provider: Levi Nelson ED Provider: Shikha Pizarro Home Meds and New Rx's Prescriptions: New oxycodone 5 mg capsule 5 mg PO ONCE PRN (Reason: pain) Qty: 20 RF: 0 naloxone [Narcan] 4 mg/actuation spray,non-aerosol 1 spray MICHEL ONCE PRN (Reason: opioid overdose) Qty: 2 RF: 0 Continue pantoprazole 40 MG tablet,delayed release (DR/EC) 40 mg PO DAILY Qty: 20 RF: 0 ondansetron 8 MG tablet,disintegrating 8 mg PO TID Qty: 10 RF: 0 lidocaine [Lidoderm] 1 PATCH adhesive patch,medicated 1 ea Topical DAILY PRN PRN (Reason: Pain) Qty: 15 RF: 0 ibuprofen [Ibuprofen IB] 200 mg Tablet 600 mg PO QID PRNRF: 0 acetaminophen [Tylenol] 325 mg Capsule 325 mg PO Q6H PRNRF: 0 Discontinued oxycodone 5 MG tablet 5 mg PO Q6H PRN (Reason: Pain) Qty: 15 RF: 0 Discharge Instructions Instructions: Rib Fracture (ED) Additional Instructions: Encourage hydration. continue with incentive spirometery as previously advised. You may use 600mg of Ibuprofen every 6 hours as needed for pain, next dose may be taken at 0100AM. You may use 1,000mg of Tylenol every 6 hours as needed for pain Oxycodone as prescribed, as needed, for pain. Take only as prescribed and as needed. Keep this in a safe place. Please follow up with Occupational Health in the next 3 days. If you develop new/worsening symptoms please seek care urgently once again. Referrals: Rachna Brasher NP [NURSE PRACTITIONER] - 3 days ([phone]) Discharge Data Discharge Date/Time-TO BE ENTERED AT DEPARTURE: 02/13/18 17:52 Medical Decision Making MDM Narrative Medical decision making narrative: Patient presents with chief complaint of chest wall pain. Patient suffered from displaced posterior 10th rib fracture and nondisplaced fracture of the 9th rib posteriorly on 02/05/18. Presents today with sudden increase in pain and SOB after sneezing last night. Patient had been prescribed oxycodone but has since run out of this. He appears uncomfortable and is breathing shallow. Lung sounds are present and clear in all miller. Patient was seen here a few days ago for sudden onset of increased pain, responded well to Toradol and Morphine IM, will repeat this dosing. Will obtain repeat imaging. Patient has been using IS at home but reports he has lower inspiratory effort today. CXR reviewed by radiologist. They note left lower lobe atelecatsis/ consolidation. No pneumothorax. Fractures of the psterior lateral aspec of the left 7th, 8th, 9th, 10th ribs. Changes to prior biceps tenodesis at the left humerus proximal diaphysis. Patient was noted to have consolidation as above on previous imaging. This is more fractures than were initially visualized. Patient given Toradol and IM Morphine. He reports that pain is only minimally improved. Reports that pain is now 9/10. Requesting more medication. Another dose of Morphine was given and patient feels much improved. Patient requesting further home po narcotics. I reviewed PDMP, patient has only received the one narcotic prescription from the time of his initial ER evaluation for this injury in the past year. I will give him further, patient is clearly uncomfortable. They have not been utilizing Tylenol and Ibuprofen appropriately, we discussed more appropriate dosing to help with pain. We discussed splinting when coughing/sneezing. Advised that he continue with IS use. We discussed risks/benefits of narcotic usage, encouraged safe usage and storage. Advised close f/u with occupational health. Encouraged hydration. All of his questions and concerns were addressed, he is in agreement with this plan. HPI - General Adult General Mode of arrival: ambulatory . Date/Time Provider Initiated Documentation: 02/13/18 15:06 . Limitations to Documentation: no limitations . Information obtained by: patient and family . History of Present Illness 52 year old M presents to the emergency department with the chief complaint of Rib pain, described as severe, with intensity rated at 10. Quality is described as stabbing, and is localized to the chest (left posterior chest wall). Patient reports no radiation. Patient started experiencing this day(s ) and it has been constant. No relieving factors improve symptom(s), Movement worsens symptoms (deep breathing, coughing, sneezing) . Patient notes no other symptoms.; denies cough and fever/chills. Patient did receive the following treatments prior to arrival, NSAID and other (topical patches) Related Data Home Medications Medication Instructions Recorded Confirmed acetaminophen [Tylenol] 325 mg PO Q6H PRN 02/13/18 02/13/18 ibuprofen [Ibuprofen IB] 600 mg PO QID PRN 02/13/18 02/13/18 Previous Rx's Medication Instructions Recorded ondansetron 8 mg PO TID #10 tabef 04/15/16 pantoprazole 40 mg PO DAILY #20 tabcr 04/15/16 lidocaine [Lidoderm 5% Patch] 1 ea TOPICAL DAILY PRN PRN #15 02/09/18 patch naloxone [Narcan] 1 spray MICHEL ONCE PRN #2 each 02/13/18 oxycodone 5 mg PO ONCE PRN #20 cap 02/13/18 Allergies Allergy/AdvReac Type Severity Reaction Status Date / Time shellfish derived Allergy Unknown Nausea Verified 02/13/18 15:15 hydromorphone [From Dilaudid] AdvReac Severe Psychosis Verified 02/13/18 15:16 General Stated Complaint: Chest/Rib MICAELA: 3 Review of Systems Constitutional Denies body ache(s) and Denies chills Cardiovascular Reports as per HPI, Reports chest pain (posterior chest wall pain), Reports chest pain at rest (chest wall pain, worse with inspiration), Reports chest pain with activity (chest wall pain, pain is posterior left chest wall), Denies syncope, Denies pedal edema, Denies edema and Reports dyspnea on exertion ( dyspnea associated with chest wall pain) Respiratory Reports as per HPI, Denies cough, Denies hemoptysis, Reports pain on inspiration , Reports pain with cough, Reports dyspnea on exertion (dyspnea associated with chest wall pain), Denies stridor and Denies wheezing Gastrointestinal Denies abdominal pain, Denies nausea and Denies vomiting Musculoskeletal Reports as per HPI Neurologic Denies syncope Allergic/Immunologic Denies wheezing PFSH Medical History Hearing loss (Acute) Leg fracture, right (Acute) GERD (gastroesophageal reflux disease) (Chronic) Hiatal hernia (Chronic) Social History marital status: lives independently: No 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[employer], 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 Smoking/Tobacco Use Status: Current every day details: ETOH -- none Surgical History History of lumbar fusion (Acute) H/O shoulder surgery (Chronic) Exam Const General: cooperative, healthy appearing and acute distress (patient appears very uncomfortable, particularly with movement or coughing) mild Nutritional Appearance: average body habitus and well nourished Orientation: alert and awake Chest Chest: abnormal inspection of the chest, abnormal palpation of chest wall ( patient has chest wall tenderness over posterior left chest wall, he has Lidoderm patch in place) and no crepitus Resp Effort & Inspection: normal respiratory effort, able to speak in complete sentences, no audible wheezes, decreased respiratory effort (patient appears to be self splinting and taking shallowing breathing to help with chest wall pain) , no nasal flaring, no pursed lip breathing, no respiratory distress, no retractions, no segmental paradox chest wall movement, no stridor, no tracheal deviation and no tripod positioning Auscultation: clear to auscultation bilaterally, breath sounds present, lung sounds not diminished, no rales and no wheezes Cardio Rate: regular rate Rhythm: regular rhythm Heart Sounds: S1 normal Skin General skin exam: no rashes or lesions noted (patient has patch in place over area of maximal discomfort) Lesions: no lesions Rashes: no rashes Wounds: no wounds Neuro General: alert and awake Cognition: normal cognition Speech: speech normal Gait: normal gait Psych Appearance: grossly normal Mental Status: mental status grossly normal Speech and Movement: speech and movement normal Affect: normal affect Attitude: cooperative Course Vital Signs Temperature 37.2 C 02/13/18 15:09 Pulse 76 02/13/18 15:09 Respiratory Rate 16 02/13/18 15:09 Blood Pressure 158/103 H 02/13/18 15:09 Pulse Oximetry 96 02/13/18 15:09 Temperature 37.2 C 02/13/18 15:09 Pulse 76 02/13/18 15:09 Respiratory Rate 16 02/13/18 15:09 Blood Pressure 158/103 H 02/13/18 15:09 Pulse Oximetry 96 02/13/18 15:09
[2018-02-13] MEDS: MORPHine 10 MG/ML VIAL 4 MG IM (16:14)
[2018-02-13] MEDS: Ketorolac 60 MG/2 ML VIAL IM (16:14)
--- NOTE | 2018-02-13 16:50 | DI.VRAD_ITS ---
EXAM: XR Left Ribs, 2 Views CLINICAL HISTORY: 52 years old, male; Signs and symptoms; Other: Pain, SOB; Painful respiration TECHNIQUE: Frontal and oblique views of the left ribs. COMPARISON: No relevant prior studies available. FINDINGS: Lungs: Left lower lobe atelectasis/consolidation. Pleural space: Unremarkable. No pneumothorax. Bones/joints: Fractures of the posterior lateral aspect of the left seventh, eighth, ninth and 10th ribs. Changes of prior biceps tenodesis at the left humerus proximal diaphysis. IMPRESSION: 1. Fractures of the left seventh, eighth, ninth and 10th ribs. 2. Left lower lobe atelectasis/consolidation. EXAM: XR Chest, 2 Views CLINICAL HISTORY: 52 years old, male; Signs and symptoms; Other: Pain, SOB; Painful respiration TECHNIQUE: Frontal and lateral views of the chest. COMPARISON: CR - CHEST 2 VIEWS PA,LAT 02/09/2018 4:51 AM FINDINGS: Lungs: No pulmonary vascular congestion. Clear right lung. Patchy densities in the left lung base consistent with atelectasis and/or consolidation. Pleural space: No pneumothorax. Heart: The cardiac silhouette is unremarkable. Mediastinum: The mediastinal contour is unremarkable. Bones/joints: Mild degenerative spondylosis of the thoracic and upper lumbar spine. Fractures of left seventh, eighth, ninth and 10th ribs. IMPRESSION: 1. Fractures of left seventh, eighth, ninth and 10th ribs. 2. Left lower lobe atelectasis and/or consolidation. Dictated and Authenticated by: Lalo Gallegos MD. Ordering:UZIEL GARCIA MD
[2018-02-13] MEDS: MORPHine 10 MG/ML VIAL 6 MG IM (17:25)
[2018-02-13 17:55] VITALS: BP 155/91; PULSE 80; RESP 16; TEMP 37.2; O2SAT 95
--- NOTE | 2018-02-14 09:09 | PDOC.ERCMPRO ---
Care Management Progress Note 02/13-Shikha AYOUB requested assistance with a PCP (Omar) appt in three days for rib fractures. Patient has been seen in the ED three times. Referral faxed to Dr Nelson's office today.
== END 2018-02-13 17:52 | disposition home or self-care (01) ==
PROVIDERS: Emergency Provider Physician Assistant; PCP General Practice
DX: S22.42XA Multiple fractures of ribs, left side, initial encounter for closed fracture (principal); V48.4XXA Person boarding or alighting a car injured in noncollision transport accident, initial encounter
CPT/HCPCS: 96372; 99284; 71046; 71100; J1885; J2270

== ENCOUNTER 2019-01-27 14:07 | Emergency (ER) | payer BC, SELFPAY ==
[2019-01-27 14:12] VITALS: BP 157/92; PULSE 79; RESP 16; TEMP 36.8
--- NOTE | 2019-01-27 14:46 | W.ED.GENAD ---
Discharge Plan Disposition Patient Disposition: HOME Condition: Improving Discharge Details Chief Complaint: EyeProblem Clinical Impression: S/P removal of metal from eye, Corneal rust ring Primary Care Provider: Levi Nelson ED Provider: Shikha Pizarro Home Meds and New Rx's Prescriptions: Continued ibuprofen [Ibuprofen IB] 200 mg Tablet 600 mg PO QID PRNRF: 0 acetaminophen [Tylenol] 325 mg Capsule 325 mg PO Q6H PRNRF: 0 Discharge Instructions Instructions: Erythromycin (Into the eye), Eye Foreign Body (ED) Additional Instructions: Encourage hydration. Tylenol and/or Motrin as needed for discomfort. Please apply 1/2 inch of erythromycin ointment to the left eye every 4 hours. Please call [facility] tomorrow to schedule follow up appointment. If you develop fevers/chills, increased pain, drainage, or other new/worsening symptoms please seek care urgently once again. Referrals: Levi Nelson MD [Primary Care Provider] - Medical Decision Making Patient is a 53-year-old male, accompanied by significant other, with chief complaint of foreign body in the left eye. He reports that last night he was grinding metal when a piece went into his eye. Patient was wearing eye protection. Last tetanus was 2013. Since that time, patient has been having pain and foreign body sensation left eye. States the eye has been tearing profusely. Endorses photophobia. Denies any unusual sensation in the right eye. On exam, patient has diffuse erythema to the. Patient is tearing. No purulent discharge. Discomfort was alleviated after administration of tetracaine. No foreign body or abnormality in the lid was noted, lid was everted. Patient has a small metal with surrounding rust ring over the pupil. A piece of metal was able to be gently removed at the end of Q-tip. However, given its location, hesitant to try any further treatment frustrating. Will refer to ophthalmology. Patient does not have an ophthalmologic home. He will contact [facility] eye care tomorrow morning. Discharged home with erythromycin ointment and usage instructions, first dose was administered by nursing staff here. He was given strict return precautions. All the questions and concerns were addressed and he is in agreement with this plan. HPI General Mode of arrival: ambulatory. Date/Time Provider Initiated Documentation: 01/27/19 14:46. Limitations to Documentation: no limitations. Information obtained by: patient and RN notes reviewed. HPI Narrative: Patient is a 53-year-old male presents today with chief complaint of left eye pain. He reports that he was grinding metal yesterday and believes that he has multiple pieces of metal in the eye at this time. Vision has been blurred. Unknown tetanus. Does not wear corrective lenses. Denies fevers/chills. Eyes have been teary but no purulent discharge Related Data Home Medications Medication Instructions Recorded Confirmed acetaminophen [Tylenol] 325 mg PO Q6H PRN 02/13/18 01/27/19 ibuprofen [Ibuprofen IB] 600 mg PO QID PRN 02/13/18 01/27/19 Allergies Allergy/AdvReac Type Severity Reaction Status Date / Time shellfish derived Allergy Unknown Nausea Verified 01/27/19 14:28 hydromorphone [From Dilaudid] AdvReac Severe Psychosis Verified 01/27/19 14:28 General Stated Complaint: EyeProblem MICAELA: 4 Review of Systems Constitutional Reports as per HPI, Denies chills, Denies fatigue, Denies fever(s) and Denies headache(s) Eyes Reports as per HPI ENT Denies headache(s) Cardiovascular Reports as per HPI, Denies chest pain and Denies lightheadedness Respiratory Denies cough Integumentary/Breasts Reports as per HPI, Denies rash, Denies skin pain and Denies skin swelling Neurologic Denies headache(s) and Denies radicular pain Endocrine Denies fatigue PFSH Medical History GERD (gastroesophageal reflux disease) (Chronic) Hearing loss (Acute) Hiatal hernia (Chronic) Leg fracture, right (Acute) Surgical History H/O shoulder surgery (Chronic) History of lumbar fusion (Acute) Social History Smoking/Tobacco Use Status: Current every day Tobacco Type: cigarettes Alcohol Intake: former Details: ETOH -- none Drug use: Never Substance use type: does not use 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[employer], [employer]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 Do you feel safe in your relationship?: Yes Exam Const General: cooperative, healthy appearing, comfortable, no acute distress, well developed and well groomed Nutritional Appearance: average body habitus and well nourished Orientation: alert, awake and oriented x3 [facility] Head: normal to inspection, normocephalic and atraumatic Ears: hearing grossly normal bilaterally and external ears normal General nose exam: external nose normal and nares normal Face and sinus: normal facial exam and face symmetric Mouth: oral mucosae normal, lip normal and moist mucous membranes Eyes Alignment and Position: alignment normal and position normal Periorbital: periorbital findings normal Eyelids: eyelids normal (Inverted lid, no foreign body noted) Conjunctivae: conjunctival abnormality left conjunctival injection diffuse Cornea: corneas abnormal on the left fluorescein used and foreign body (Small metal foreign body with rust ring over inferior pupil) metallic and with rust ring present and fluorescein used Pupils: PERRL, normal by confrontation and accommodation normal EOM: EOM intact bilaterally Direct ophthalmoscopy: normal light reflex Resp Effort & Inspection: normal respiratory effort, able to speak in complete sentences and no respiratory distress Skin General skin exam: no rashes or lesions noted Neuro General: alert, awake and oriented x3 Cranial Nerves: CN's II-XI intact bilaterally Cognition: normal cognition Speech: speech normal Gait: normal gait Psych Appearance: grossly normal and well kempt Mental Status: mental status grossly normal Speech and Movement: speech and movement normal Course Vital Signs Temperature 36.8 C 01/27/19 14:12 Pulse 79 01/27/19 14:12 Respiratory Rate 16 01/27/19 14:12 Blood Pressure 157/92 H 01/27/19 14:12 Temperature 36.8 C 01/27/19 14:12 Temperature Source Temporal Artery Scan 01/27/19 14:12 Pulse 79 01/27/19 14:12 Respiratory Rate 16 01/27/19 14:12 Respiratory Effort Non-Labored 01/27/19 14:25 Blood Pressure 157/92 H 01/27/19 14:12 Blood Pressure Position Supine 01/27/19 14:12 Oxygen Delivery Method Room Air 01/27/19 14:12 Oxygen Flow Rate 0 01/27/19 14:12
[2019-01-27] MEDS: Tetracaine 0.5% 4 ML BTL OP ×2 (15:00→15:20)
[2019-01-27] MEDS: Fluorescein STRIPS 100/BOX 1 MG (16:37)
[2019-01-27] MEDS: Erythromycin Ophth Oint 3.5 GM TUBE OS (16:37)
--- NOTE | 2019-01-29 08:30 | NUR.NOTE ---
Nursing Note: Called [facility] Sunday 01/28 morning and the patient was there at that time. Their fax machine was not working. Faxed the physican note late Monday afternoon. Zofia Frnech.
== END 2019-01-27 16:30 | disposition home or self-care (01) ==
PROVIDERS: Emergency Provider Physician Assistant; PCP General Practice
DX: T15.02XA Foreign body in cornea, left eye, initial encounter (principal); W31.1XXA Contact with metalworking machines, initial encounter
CPT/HCPCS: 99283

== ENCOUNTER 2019-04-10 14:28 | Outpatient (CLI) | payer BC, SELFPAY ==
--- NOTE | 2019-04-10 14:12 | DI.RAD_ITS ---
EXAM: XR KNEE RT 3V AP,LAT,IRINA INDICATION: KNEE PAIN. COMPARISON: No exams were available for comparison TECHNIQUE: 2D digital imaging was performed. FINDINGS: There is marked narrowing in the medial femoral tibial joint space. There is mild narrowing of the p atellofemoral joint. Periarticular spurring is seen at the posterior patella and the medial femoral tibial joint space. There is chondrocalcinosis seen in the lateral femoral tibial joint. No acute f racture or dislocation is present. There is a moderate joint effusion. The proximal aspect of an in tramedullary izt is seen in the proximal tibia. IMPRESSION: Moderately severe degenerative changes of the right knee.
--- NOTE | 2019-04-10 14:55 | DI.RAD_ITS ---
EXAM: XR TIB/FIB RT INDICATION: F/U HARDWARE. COMPARISON: XR KNEE RT 3V AP,LAT,IRINA from 04/10/2019 TECHNIQUE: 2D digital imaging was performed. FINDINGS: An intramedullary itz is seen through the tibia. There are old healed fractures of the mid tibia an d fibula. There are no significant degenerative changes at the ankle. There is no abnormal lucency surrounding the tibial itz. IMPRESSION:
== END 2019-04-10 14:48 ==
PROVIDERS: PCP General Practice; Visit Provider Student in an Organized Health Care Education/Training Program
DX: M25.561 Pain in right knee (principal); M25.461 Effusion, right knee; M17.11 Unilateral primary osteoarthritis, right knee; Z96.7 Presence of other bone and tendon implants; Z87.81 Personal history of (healed) traumatic fracture
CPT/HCPCS: 73562; 73590

== ENCOUNTER 2019-07-08 09:47 | Outpatient (CLI) | payer BC, SELFPAY ==
--- NOTE | 2019-07-08 10:52 | CMPROGNOTE_ITS ---
- If Service Date Differs Date of service: 07/08/19 Time of Service: 10:53 Care Management Progress Note CM meets with Reji at the request of Pre-Op as he is scheduled for a knee replacement surgery on July 16, 2019. Reji lives in [place] with his , daughter, and two grandchildren. 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 When not at work, Reji enjoys puttering in his garage, hunting, fishing, and riding his grandkids on the four-braun. He is independent at baseline and has no in-home services. He has a cane, shower seat, and a high rise toilet at home and believes he will be able to borrow a walker from his mother. His home is a two- story house. He has 5 steps to get onto the deck of his home but once inside, there are no other stairs to navigate, as the master bedroom, master bath, living room, etc., are all on the same floor. There are no pets in the home.
[2019-07-08 11:05] LABS: HCT 44.3 % (40.0-50.0); HGB 15.7 g/dL (13.5-17.5); Mean Corp. HGB Concentration 35.4 g/dL (32.0-36.0); Mean Corpuscular Hemoglobin 31.6 pg (27.0-33.0); Mean Corpuscular Volume 89.1 fL (80-95); Mean Platelet Volume 9.6 fL (8.0-11.0); Platelet Count 230 x1000/uL (130-400); RBC 4.97 m/cumm (4.50-6.00); White Blood Cell Count 8.68 k/cumm (4.4-10.8)
[2019-07-08 13:21] LABS: Anion Gap 8.4 mmol/L (3-11); BUN 17 mg/dL (7-18); CO2 27.6 mmol/L (21.0-32.0); CREATININE 1.19 mg/dL (0.70-1.30); Chloride 106 mmol/L (98-107); Glucose 97 mg/dL (74-106); Potassium 3.9 mmol/L (3.5-5.1); Sodium 142 mmol/L (136-145)
== END 2019-07-08 10:07 ==
PROVIDERS: Visit Provider Student in an Organized Health Care Education/Training Program
DX: M25.561 Pain in right knee (principal); M17.11 Unilateral primary osteoarthritis, right knee; Z01.818 Encounter for other preprocedural examination; Z01.812 Encounter for preprocedural laboratory examination
CPT/HCPCS: 36415; 80048; 85027

== ENCOUNTER 2019-07-16 05:57 | Inpatient (IN) | payer BC, SELFPAY ==
[2019-07-08 09:54] VITALS: BP 152/92; PULSE 89; RESP 16; TEMP 37.1; O2SAT 95
[2019-07-16] VITALS (14 sets, daily range): BP systolic 107–155; BP diastolic 67–102; PULSE 58–82; RESP 13–22; TEMP 36.4–37.1; O2SAT 92–98
[2019-07-16] MEDS: Lactated Ringers 1,000 ML 80 ML IV ×2 (06:35→12:11)
[2019-07-16] MEDS: Acetaminophen 500 MG TAB 1000 MG PO ×3 (06:35→20:55)
[2019-07-16] MEDS: Gabapentin 300 MG CAP PO ×2 (06:36→22:53)
[2019-07-16] MEDS: Celecoxib 200 MG CAP 400 MG PO (06:37)
[2019-07-16] MEDS: ceFAZolin 2 GM/50 ML BAG IVPB (08:02)
[2019-07-16] MEDS: Normal Saline 20 ML VIAL (10:11)
[2019-07-16] MEDS: Ketorolac 30 MG/ML VIAL (10:11)
[2019-07-16] MEDS: Bupivacaine 0.25% Pres-Free 30 ML VIAL (10:11)
--- NOTE | 2019-07-16 11:18 | DI.RAD_ITS ---
EXAM: XR TIB/FIB RT INDICATION: REMOVAL OF HARDWARE. COMPARISON: XR TIB/FIB RT from 04/10/2019 TECHNIQUE: 2D digital imaging was performed. FINDINGS: Since the prior examination, there has been removal of the intramedullary itz from the tibia. There are old healed fractures of the right tibia and fibula. Patient now has a right total knee replaceme nt. No acute fracture or dislocation is identified. The soft tissues are unremarkable.
[2019-07-16] MEDS: Normal Saline Flush 10 ML SYR IV ×3 (12:14→22:53)
[2019-07-16] MEDS: ceFAZolin 1 GM/50 ML BAG IVPB ×2 (14:10→22:53)
[2019-07-16] MEDS: Ketorolac 15 MG/ML VIAL IVP ×2 (15:49→23:22)
--- NOTE | 2019-07-16 16:05 | NUR.NOTE ---
Nursing Note: Pt brought from PACU and admitted to ms room 231 at 1202. Pt up on bed. Numbness from toes to pelvic girdle. Dressing cdi, cryo on, nacho on l leg, scds on right. HR reg, lsc, absent bs. VSS. Awak, alert and conversant. Oriented x 3
--- NOTE | 2019-07-16 16:55 | PT.INIE ---
Date of service: 07/16/19 Time of Service: 16:12 PT Notes Visit Reasons: L KNEE OA Physical Therapy Inpatient Initial Evaluation Date: 07/16/2019 Referring Doctor: Winston Grimes M.D. PT Orders: PT CONSULT: s/p ortho surgery Precautions: Fall. Standard. Activity as tolerated. WBAT on L LE. Patient Profile/Admitting Diagnosis: Pt is a 54-year-old male with history of post-traumatic arthritis status post right total knee arthroplasty on post-operative day zero. PMHX: Medical History GERD (gastroesophageal reflux disease) (Chronic) Hearing loss (Acute) Hiatal hernia (Chronic) Leg fracture, right (Acute) Tibia/fibula fracture, shaft (Acute ~1988) Surgical History H/O shoulder surgery (Chronic) History of lumbar fusion (Acute) Social History/Home Situation: Pt lives at home with his , daughter, and two grandchildren. He notes there are 5 steps onto his porch. No stairs in the house. Notes that he has five children and 11 grandchildren, with 4 children that live in [place]. Equipment Owned/DME: Front-wheeled walker. Subjective: Pt reports that he is not experiencing any pain at the time of the initial evaluation but is able to wiggle his toes in bed. Objective: General Observation: mepilex dressing over incision. Thromboembolic pumps on bilateral LEs. Cruz catheter in place. Mental Status: alert and oriented x4 Pain: 0/10 ROM: Right Upper Extremity: Shoulder Flexion WFL. Shoulder abduction WFL. Elbow flexion WFL. Wrist flexion WFL. Opening and closing of hand WFL. Left Upper Extremity: Shoulder Flexion WFL. Shoulder abduction WFL. Elbow flexion WFL. Wrist flexion WFL. Opening and closing of hand WFL. Right Lower Extremity: Hip flexion WFL. Hip abduction WFL. Knee flexion 86 degrees. Knee extension -10 degrees. Ankle dorsiflexion WFL. Ankle plantarflexion WFL. Left Lower Extremity: Hip flexion WFL. Hip abduction WFL. Knee flexion WFL. Ankle dorsiflexion WFL. Ankle plantarflexion WFL. Strength: Right Upper Extremity: Shoulder flexors 5/5. Shoulder abductors 5/5. Elbow flexors 5/5. Elbow extensors 5/5. Collection Systems Administrator strong. Left Upper Extremity: Shoulder flexors 5/5. Shoulder abductors 5/5. Elbow flexors 5/5. Elbow extensors 3-5/5. Collection Systems Administrator strong. Left Lower Extremity: Hip flexors 4/5. Hip abductors 5/5. Knee flexors 4+/5. Knee extensors 4+/5. Ankle dorsiflexors 2/5. Ankle plantarflexors 2/5. Right Lower Extremity: Hip flexors 3-/5. Hip abductors 5/5. Knee flexors 3-/5. Knee extensors 3-/5. Ankle dorsiflexors 2/5. Ankle plantarflexors 2/5. Sensation: Intact as to pain and pressure on bilateral lower extremities. Bed Mobility/Transfers: Rolling Min A Supine to sit Min A Sit to supine Min A Sit to stand Mod A x 2 Stand to sit Mod A x2 Bed to chair NT Chair to bed NT Bed Mobility/Transfers: *after 40 minutes of rest Rolling supervision Supine to sit supervision Sit to supine supervision Sit to stand CGA Stand to sit CGA Bed to chair CGA Chair to bed CGA Gait: Pt was able to take one step forward and one step back. Ambulation was discontinued due to pt report that he felt that he could not control his legs. He was able to perform three lateral weight shifts, but with upper extremity support on the walker. After 40 minutes of rest, the pt was able to ambulate 100 feet, WBAT on the R LE, using a front-wheeled walker. CGA provided by PT and PT student with wheelchair follow provided by the pt?s . Step to gait pattern with asymmetrical step length and height. Cues to push walker forward. Balance: Static Sitting: Normal Dynamic Sitting: Normal Static Standing: Poor Dynamic Standing: Poor Special Tests: Mobility Limitations Standardized Measure [facility] 6 clicks Basic Mobility Inpatient Short Form: Raw Score: 23 CMS Score: 11% deficit Informed Consent/Education: Patient instructed in purpose of PT consult and plan of care. Assessment: Pt is a 54-year-old male with history of post-traumatic arthritis status post right total knee arthroplasty on post-operative day zero. He presents to physical therapy with impairment level findings and functional limitations as listed below. Pt demonstrates great difficulty with standing from the edge of the bed and significant upper extremity support for balance standing, likely due to the lasting effects of the anesthetics. After about 40-minutes of rest the pt showed improvements in bed mobility and transfers and was able showed improvements in motor control of bilateral lower extremities and was able to ambulate without significant difficulty or increases in pain. He would continue to benefit from skilled physical therapy at this time. Patient presents with clinical signs and symptoms consistent with current/admitting diagnoses that have resulted to mobility limitations, gait instability, generalized weakness, and impairment of motor control as demonstrated by the following impairment level findings: 1. Decreased strength to B LE major muscle groups 2. Impaired sitting/standing balance 3. Impaired activity tolerance 4. Limitation of joint range of motion in right knee 5. Impaired proprioception of B LE due to anesthesia Impairments are contributing to the following functional limitations: 1. Dependent bed mobility skills 2. Increased dependence with transfers 3. Inability to safely ambulate without assistive device and physical assistance 4. Increase completion time for mobility ADL performance 5. Increased fall risk 6. Inability to negotiate steps alone safely Patient is assessed as a 06442 moderate complexity based on the following: History: Pt is a 54-year-old male with history of post-traumatic arthritis status post right total knee arthroplasty on post-operative day zero. He presents to physical therapy with significant impairment level findings and functional limitations as listed below. AM-PAC raw score of 23 with 11% deficit. Examination: Demonstrable impairment in strength, balance, and range of motion with underlying impairments and functional limitations as documented above Presentation: Evolving Decision Makin moderate complexity Goals: Goals X1 week 1. Supine-Sit independent 2. Sit-Supine independent 3. Sit-Stand independent 4. Stand-Sit independent 5. Bed-Chair independent 6. Chair-Bed independent 7. Independent gait on level surface with use of least restrictive device for at least 300 feet without report of pain nor dyspnea 8. Independent stair negotiation while holding onto bilateral rails for at least 5 steps without report of pain nor dyspnea 9. Independent with home exercise program 10. Good static and dynamic standing balance/tolerance Plan of Care/Treatment Plan: 1-2x/day, 7 days/week x 1 week. Plan of care has been reviewed with the NON PROFIT FINANCIAL CONTROLLER providing the service under Physical Therapy direction. Initiate Physical Therapy intervention for strengthening, bed mobility, transfers, gait, stairs, balance training, use of assistive device. DISCHARGE RECOMMENDATIONS: Discharge to home with home health physical therapy for improved mobility level, strengthening, and balance. TREATMENT CODE/TIME: 81562 x 20 minutes beginning at 15:15 P.M. 37284 (MCPHERSON Modifier) x 15 minutes beginning at 16:12 P.M. Thank you very much for this referral. Austen Marie, SPT Doctor of Physical Therapy Student [facility] Supervision provided by Jaimie Cartagena PT, DPT, CLT [facility] [place], [place]
[2019-07-16] MEDS: Aspirin E.C. 81 MG TABEC PO (20:55)
--- NOTE | 2019-07-16 21:41 | ROE_ITS ---
Date of service: 07/16/19 Time of Service: 10:56 Operative Note Operative Note DATE OF PROCEDURE: 07/16/19 PRE-OP DIAGNOSIS: Right posttraumatic knee arthritis POST-OP DIAGNOSIS: same PROCEDURE: Right Total Knee Arthroplasty with Intraoperative Navigation, removal of tibial intramedullary nail SURGEON: Winston Grimes SPINNING OPERATOR: Kenya Forrester ANESTHESIA: regional and spinal ESTIMATED BLOOD LOSS: 250 PATHOLOGY: none sent TOURNIQUET TIME: 41 COMPLICATIONS: None Patient was transported to: PACU Patient's condition: stable Implants: 1. Depuy Attune Posterior Stabilized Femoral Component, Size 8 2. Depuy Attune Fixed Platform Tibial Component, Size 6 3. Depuy Attune 8 x 7 mm fixed, Stabilized Poly 4. Depuy Attune Patellar Component, Size 38 mm Indications: I have seen Reji in clinic for symptoms of knee arthritis, confirmed with radiographic findings. He has exhausted nonoperative methods and was having significant limitations in daily function and desired better function and less pain. I discussed the technical details of a knee replacement. I explained the risks of the procedure to include, but not limited to, bleeding, infection, pain, stiffness, fracture, damage to nerves and vessels, damage to muscles and tendons, loosening, need for repeat procedure, blood clot and cardiopulmonary demise. Despite these risks, he elected to proceed. Findings: There was significant signs of arthritis throughout the knee. This was seen mostly the medial compartment with flattening and deformity of the medial femoral condyle and the medial tibia. The previous intervention nail was able to be removed although it did cause some damage of the proximal tibial bone. Bony pieces from the knee resection were impacted into this area to fill the defect and a knee arthroplasty was placed. Procedure Description: Reji was greeted in the preoperative holding area where the correct side was identified and marked. The consent was reviewed with the patient and signed. The history and physical was updated. All questions were answered. Preoperative mediacations were administered: Acetaminophen 1000mg, Celebrex 400mg, Gabapentin 300mg. An adductor canal block was then administered by the anesthesia team in the PACU. Reji was taken back to the operating room. A spinal anesthestic was then administered. The patient was placed into the supine position on the operating room table. A nonsterile tourniquet was placed high onto the leg but only used for cementing. Posts were placed for positioning during the procedure. All bony prominences were well padded. Prophylactic antibiotics in the form of cefazolin were administered. 1g of Tranxemic Acid was given intravenously within 30 minutes of incision. The right leg was then prepped with Chloraprep and draped in a standard fashion with impervious stockinette and extremity drape with Iodine impregnated skin protection. A timeout to confirm correct identity, side and site, procedure, allergies, anesthesia, and medical concerns was performed. With the knee in some flexion, a midline incision was made overlying the knee. Full thickness skin flaps were raised once the extensor mechanism was en countered. These were raised medially and laterally. Any bleeding was controlled with electrocautery. Once the extensor mechanism was fully exposed, a medial parapatellar arthrotomy was performed in a flexed position. All bleeding from the arthrotomy and the geniculate arteries was coagulated. A medial subperiosteal peel was performed with electrocautery to the midcoronal plane. Due to the significant varus deformity the entire medial tibial plateau was exposed. The fat pad was removed while keeping the patellar tendon protected. The anterior distal femur synovium was removed for later visualization. The ACL and PCL were resected and the anterior horn of the lateral meniscus was transected. The knee was then flexed with the patella everted. Large osteophytes from the tibia were removed. Large osteophytes from the femur were removed. A single starting pin was then placed 1cm anterior to the PCL insertion and the notch in the direction of the femoral head. The OrthoAlign device was applied over the pin. It was oriented to be in line with the epicondylar axis and the trochlear groove. It was then pinned into place. The navigation computer was then turned on and calibrated. The distal femur cut was set at 0 degrees varus/valgus and 2.5 degrees flexion. The distal femur cutting guide then was positioned for a 9mm cut. The distal femur was cut with an oscillating saw while protecting the soft tissues. The tibia was then addressed. The OrthoAlign device was placed over the tibial tubercle and medial tibia and secured into position. Once again, OrthoAlign was calibrated and then set for a 0 degree varus/valgus cut and 3 degrees of posterior slope. With this locked into position, the cut thickness stylus was used to assess cut thickness. The medial side, most involved side, was set for a 4mm cut. This was then held in position and pinned into place with 2 additional pins and a cross pin for stability. The medial and lateral collateral ligaments were protected and the cut was performed. With this completed, it was assessed and noted to be of appropriate dimensions. The solid not account of the nail but when the bony cut was removed the proximal tip of the nail was visible just below the tibial cut surface. The guide and OrthoAlign was removed. A spacer block was inserted and the knee was brought into extension. The 6mm spacer block provided full extension, without hyperextension and with stability of both the medial and lateral collateral ligaments was assessed. The pins from the femur and the tibia were then removed. The distal femur was then sized. The anterior stylus was placed onto the lateral ridge of the anterior femur. This indicated a size 8 femur. The external rotation of the guide was adjusted to 3 degrees to match the epicondylar axis, perpendicular to Miguel?s line. The 4-in-1 cutting guide was the placed. The posterior medial femur cut was evaluated and appeared of good thickness. The spacer block was inserted underneath the cutting guide and stability was confirmed in 90 degrees of flexion. An [place] wing was used to confirm appropriate position of the anterior cut to avoid notching. This cu tting guide was ensured to be flush on the cut surface and then pinned into place with headed pins. While protecting the soft tissues, quad tendon, and collateral ligaments, the anterior and posterior cuts were performed with a saw. The central two pins were removed and the posterior and anterior chamfers were cut next. The notch-cutting guide was placed. This was pinned to lateralize the femoral component as much as possible while keeping it flush on the cut surface. This was then pinned into position. A reciprocating saw was used to make the notch cut. A rasp smoothed the cut surfaces. Posterior osteophytes were removed using a curved osteotome. They are most prominent medially. A trial posterior stabilized femoral component was then inserted, impacted down to the cut surface s, and the lug holes were drilled. A provisional trial tibial component was placed and the knee was brought through range of motion. The polyethylene was trialed until there was good flexion and extension with excellent stability to the medial and lateral collaterals. The patella was tracking without thumbs. The tibial cut surface was fully exposed. The medial and lateral menisci were removed. The tibia was then sized as a 6. The tibia had been previously marked during trialing to correspond to the center of the tibial component to help with rotation. The trial was aligned to this [place], approximately rotated to the medial 1/3rd of the tibial tubercle. The trial was pinned into place. The tibia was prepared with a reamer and a keel punch. However, this was unable to be completed as it did encounter the nail. Therefore I proceeded with nail removal. The proximal bone around the tip of the nail was removed so I could visualize the threads in the superior portion of the nail. Using a universal nail extractor I threaded on the adapter into the proximal aspect the nail. Before proceeding with removal I took a small osteotome and loosen of the bone of the proximal stent of the nail without doing damage to the surrounding tibial plateau. With a back slap maneuver, the nail was removed. This took multiple attempts and it did push on some of the proximal bone causing some deformity of the prepared surface. With the nail fully removed I then took bony pieces from the resection of the femur and the tibia and impacted them into the defect left by the nail. Bone graft material is also incorporated with these bony pieces to improve bony integration. A bone tamp was used to impact these in position. No fracture was identified. The knee was then brought into extension and the patella was measured as 26 mm. Using the patellar clamp and cut guide, this was resected to a flat surface with at least 13mm of thickness remaining. The size 38 patella fit the best. This was oriented and then clamped into position. The lugs were drilled. The trial components were removed. The final components, except for the polyethylene were opened on the back table. The periosteal and capsular tissues, especially posteriorly, around the knee were then systematically injected with a periarticular cocktail consisting of 50cc 0.25% Marcaine, 30mg Ketorolac, 20cc of Exparal and 50cc of injectable saline. The tourniquet was then inflated to 275mmHg. The knee was thoroughly irrigated with a pulse lavage and dried. On the back table, with the implants opened, the cement was mixed. 2 batches of antibiotic laden cement were prepared with vacuum assistance. After the cement was ready a small amount was placed on to the back side of the tibial component at the keel. A small amount was placed onto the posterior flange of the femur. Cement was manual pressurized and impregnated into the cut surface of the tibia. The tibial component was then inserted into the cut surface and impacted into position. Excess cement was removed and the component was reimpacted. Again, excess cement was removed and our attention was then turned to the femur. The femoral cut surface was once again dried and cement was manually impacted into the cut surface. The femoral component was lined with the lug holes and impacted. Excess cement was removed. It was ensured to be down against the cut surface. The trial polyethylene was then inserted and the leg was brought out into full extension for the duration of the cement curing process, approximately 15min. Cement was lastly manually impacted into the cut surface of the patella and the patellar button was clamped into position and held. During this process attention was turned to the gutters of the knee and for all interfaces for any excess cement. The knee was irrigated with Irrisept chlorhexidine solution. After the cement had finally cured, approximately 15min, the clamp was removed from the patella and the knee was taken through range of motion. A size 7 mm polyethylene component provided the best range of motion and stability with less than 2mm gapping with medial and lateral stress and full extension without significant hyperextension. The patella was tracking with a no-thumbs technique. The trial poly was removed and once again the knee was checked for any loose, excess, or errant cement. The poly component was then inserted and impacted into position after cleaning and drying the tibial tray. The capsule was then reapproximated with a No. 1 Vicryl at multiple locations. The capsule was finally closed with a No. 2 Stratafix, barbed suture. The tourniquet was then released and the arthrotomy appeared watertight without significant bleeding. The second dosing of 1g TXA was started. Deep tissues were then reapproximated with 0 Vicryl and 2-0 Vicryl. The skin was closed with a running 3-0 Monocryl in a subcuticular fashion. This was reinforced with skin glue. A Mepilex silver dressing was applied along with a [id number] ZACARIAS wrap. A CryoCuff was applied. Reji was transferred to the hospital bed without difficulty an suffering no apparent complication. Reji has a good prognosis. Physical therapy will start today and without restrictions, weight-bearing as tolerated. Aspirin 81mg BID will be used for DVT prophylaxis.
[2019-07-17 00:15] VITALS: BP 119/61; PULSE 63; RESP 16; TEMP 37.1; O2SAT 94
[2019-07-17] MEDS: Lactated Ringers 1,000 ML 80 ML IV (00:26)
[2019-07-17] MEDS: ceFAZolin 1 GM/50 ML BAG IVPB (04:59)
[2019-07-17 05:00] VITALS: BP 151/83; PULSE 58; RESP 18; TEMP 36.7; O2SAT 93
[2019-07-17] MEDS: Ketorolac 15 MG/ML VIAL IVP ×2 (05:00→09:26)
[2019-07-17] MEDS: Normal Saline Flush 10 ML SYR IV ×2 (05:00→09:25)
[2019-07-17 07:25] VITALS: BP 167/90; PULSE 64; RESP 17; TEMP 36.4; O2SAT 96
--- NOTE | 2019-07-17 08:46 | PTTR_ITS ---
Date of service: 07/17/19 Time of Service: 08:46 PT Notes Visit Reasons: L KNEE OA 07/17/2019 SUBJECTIVE: Reji stating he is doing well. Minimal pain complaints. He wants to know when he get rid of his walker. OBJECTIVE: Seated in his chair. Agreeable to PT treatment. TRANSFERS Sit to stand: I Stand to sit: I Sit to supine: I Supine to sit: I GAIT Device: FWW Weight bearing: AT R Assist: I Distance: 100'x2 Deviation: Step through gait pattern. STAIRS: 3-4, 2-6 steps, 2 rails, step to pattern, Independent. THEREX: Review HEP including quad sets, glut sets, SLR and ankle pumps. ASSESSMENT: Demonstrating improved mobility all independently. He leaves is walker behind at times during treatment and walks short distance without it. I did encourage him to utilize his walker for a few days and he can progress to a cane as he can tolerate. Review appropriate activity at home and not to over do. Frequent icing and balance of walking and rest. PLAN: Continue per POC. Treatment time: 18 minutes [id number] Ruth Ann Zhu, ROUTE RIDER SUPERVISOR
[2019-07-17] MEDS: Aspirin E.C. 81 MG TABEC PO (09:26)
[2019-07-17] MEDS: Acetaminophen 500 MG TAB 1000 MG PO (09:26)
[2019-07-17] MEDS: Pantoprazole 40 MG TABCR PO (09:26)
--- NOTE | 2019-07-17 10:13 | W.PM.DS.N ---
Date of service: 07/17/19 Time of Service: 10:13 DS: Diagnosis Discharge Diagnosis (1) Arthritis of knee, right: Status: Acute (2) Retained orthopedic hardware: Status: Acute Discharge Plan Disposition Patient Disposition: HOME Condition: Good Discharge Details Reason For Visit: L KNEE OA Admit Date/Time: 07/16/19 05:57 Admit Provider: Winston Grimes Attending Provider: Winston Grimes Primary Care Provider: None,None Hospital Course Hospital Course: Patient was admitted to the medical/surgical floor following the procedure. It was tolerated well without any notable medical, surgical, or anesthetic complications. Mobilization began postoperatively. The ballesteros catheter was removed and voiding spontaneously. Vitals were stable. Physical therapy worked with the patient and was cleared for discharge home. No acute medical issues. Home Meds and New Rx's Prescriptions: New aspirin 81 mg tablet,delayed release (DR/EC) 81 mg PO BID Qty: 28 RF: 0 acetaminophen 500 mg tablet 1,000 mg PO Q8H PRN (Reason: pain) Qty: 90 RF: 3 pantoprazole 40 mg tablet,delayed release (DR/EC) 40 mg PO DAILY Qty: 30 RF: 0 gabapentin 300 mg capsule 300 mg PO QHS Qty: 7 RF: 0 ibuprofen 600 mg tablet 600 mg PO TID PRNQty: 90 RF: 3 oxycodone 5 mg tablet 5 mg PO Q4H Qty: 18 RF: 0 Continued cyclobenzaprine 5 mg tablet 5 mg PO TID PRN (Reason: muscle spasm) Qty: 15 RF: 0 Discontinued meloxicam 7.5 mg tablet 7.5 mg PO BID Qty: 60 RF: 0 ibuprofen [Ibuprofen IB] 200 mg Tablet 600 mg PO QID PRNRF: 0 acetaminophen [Tylenol] 325 mg Capsule 325 mg PO Q6H PRNRF: 0 Discharge Instructions Additional Instructions: Dr. Grimes?s Total Knee Discharge Instructions Activity: The most important activity is to walk. You should try to take short walks a few times a day. It is important that when resting you work on keeping the knee straight. Avoid putting a pillow behind the knee as this will encourage flexion. Work on range of motion exercises as provided by Physical Therapy. - Start outpatient physical therapy within 2 weeks. - You should wear the ALBERTO hose on both legs for 2 weeks. Dressing: Keep the surgical dressing in place for at least one week. After the first week it may be removed and replace with light gauze and tape or nothing. It may get wet after 3 days but avoid soaking the dressing. If it gets wet, just lightly pat dry. Medications: - You should take Tylenol and anti-inflammatory Ibuprofen as your primary pain control medications - You have been prescribed a stronger pain medication Oxycodone for breakthrough pain, take as needed as prescribed. - You have also been prescribed a stomach acid reduction agent Pantoprozole to help reduce stomach acid and reflux. - You will be taking Aspirin 81mg twice a day for DVT prevention unless instructed otherwise. - If you have constipation you should take Colace or Miralax (both [id number]). It takes most people 3-4 days to have a bowel movement. Follow-up: 2 weeks Referrals: Winston Grimes MD [ [facility] STAFF PHYSICIAN] - [facility] [Provider Group] (s/p R TKA. PT within 2 weeks.) Activity:: Activity as Tolerated Equipment/Supplies:: Walker Diet:: As Tolerated Discharge Orders Discharge Orders: Discharge Order (Routine); Ordered 07/17/19 Ordered By: Winston Grimes DS: Summary Status at Discharge Functional status at discharge: uses cane/walker Overall status at discharge: patient is progressing back to baseline Mental Status: mental status grossly normal Speech and Movement: speech and movement normal Mood: congruent mood Affect: normal affect Exam Psych Mental Status: mental status grossly normal Speech and Movement: speech and movement normal Mood: congruent mood Affect: normal affect DS: Data Vitals/I&O Vitals and I&O: Vital Signs Temperature 36.4 C L 07/17/19 07:25 Temperature Source Tympanic 07/17/19 07:25 Pulse 64 07/17/19 07:25 Pulse Rhythm Regular 07/17/19 07:28 Respiratory Rate 17 07/17/19 07:25 Respiratory Effort 07/17/19 07:28 Respiratory Depth Normal 07/17/19 07:28 Respiratory Pattern Normal 07/17/19 07:28 Blood Pressure 167/90 H 07/17/19 07:25 Pulse Oximetry 96 07/17/19 07:25 Respiratory End-tidal CO2 33 07/16/19 11:45 Oxygen Delivery Method Room Air 07/17/19 07:25 Oxygen Flow Rate 0 07/17/19 07:25 Pain Level 2 07/17/19 09:26 Intake & Output 07/16/19 07/16/19 07/17/19 11:59 23:59 11:59 Intake Total 910 / 3356.334 2446.334 / 3356.334 2307.333 / 2307.333 Output Total 450 / 1300 850 / 1300 3250 / 3250 Balance 460 / 2056.334 1596.334 / 2056.334 -942.667 / -942.667 Weight 99.6 kg Intake: IV 670 / 1199.334 529.334 / 1199.334 707.333 / 707.333 Oral 240 / 2157 1917 / 2157 1600 / 1600 Output: Urine 200 / 1050 850 / 1050 3250 / 3250 Estimated Blood Loss 250 / 250 Other: Urine Color Light Jessica Yellow Yellow Urine Appearance Clear Clear Clear Urine Odor None Emesis Description None Voiding Methods Toilet [facility] Medical History GERD (gastroesophageal reflux disease) (Chronic) Hearing loss (Acute) Hiatal hernia (Chronic) Leg fracture, right (Acute) Tibia/fibula fracture, shaft (Acute ~1988) Surgical History H/O hand surgery (Acute) H/O shoulder surgery (Chronic) History of lumbar fusion (Acute) Social History Smoking/Tobacco Use Status: Current every day Tobacco Type: cigarettes Alcohol Intake: former Details: ETOH -- none Drug use: Never Substance use type: does not use 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
--- NOTE | 2019-07-22 15:04 | INDS_ITS ---
Date of service: 07/22/19 PT Notes Visit Reasons: L KNEE OA Inpatient PT Discharge Summary Date: 07/16/2019 Referring Doctor: Winston Grimes M.D. PT Orders: PT CONSULT: s/p ortho surgery Precautions: Fall. Standard. Activity as tolerated. WBAT on L LE. Patient Profile/Admitting Diagnosis: Pt is a 54-year-old male with history of post-traumatic arthritis status post right total knee arthroplasty on post- operative day zero. PMHX: Medical History GERD (gastroesophageal reflux disease) (Chronic) Hearing loss (Acute) Hiatal hernia (Chronic) Leg fracture, right (Acute) Tibia/fibula fracture, shaft (Acute ~1988) Surgical History H/O shoulder surgery (Chronic) History of lumbar fusion (Acute) Social History/Home Situation: Pt lives at home with his , daughter, and two grandchildren. He notes there are 5 steps onto his porch. No stairs in the house. Notes that he has five children and 11 grandchildren, with 4 children that live in [place]. Equipment Owned/DME: Front-wheeled walker. Subjective: Pt reports that he is not experiencing any pain at the time of the initial evaluation but is able to wiggle his toes in bed. Objective: General Observation: mepilex dressing over incision. Thromboembolic pumps on bilateral LEs. Cruz catheter in place. Mental Status: alert and oriented x4 Pain: 0/10 ROM: Right Upper Extremity: Shoulder Flexion WFL. Shoulder abduction WFL. Elbow flexion WFL. Wrist flexion WFL. Opening and closing of hand WFL. Left Upper Extremity: Shoulder Flexion WFL. Shoulder abduction WFL. Elbow flexion WFL. Wrist flexion WFL. Opening and closing of hand WFL. Right Lower Extremity: Hip flexion WFL. Hip abduction WFL. Knee flexion 86 degrees. Knee extension -10 degrees. Ankle dorsiflexion WFL. Ankle plantarflexion WFL. Left Lower Extremity: Hip flexion WFL. Hip abduction WFL. Knee flexion WFL. Ankle dorsiflexion WFL. Ankle plantarflexion WFL. Strength: Right Upper Extremity: Shoulder flexors 5/5. Shoulder abductors 5/5. Elbow flexors 5/5. Elbow extensors 5/5. Utility Sales Representative strong. Left Upper Extremity: Shoulder flexors 5/5. Shoulder abductors 5/5. Elbow flexors 5/5. Elbow extensors 3-5/5. Utility Sales Representative strong. Left Lower Extremity: Hip flexors 4/5. Hip abductors 5/5. Knee flexors 4+/5. Knee extensors 4+/5. Ankle dorsiflexors 2/5. Ankle plantarflexors 2/5. Right Lower Extremity: Hip flexors 3-/5. Hip abductors 5/5. Knee flexors 3-/5. Knee extensors 3-/5. Ankle dorsiflexors 2/5. Ankle plantarflexors 2/5. Sensation: Intact as to pain and pressure on bilateral lower extremities. Bed Mobility/Transfers: Rolling independent Supine to sit independent Sit to supine independent Sit to stand independent Stand to sit independent Bed to chair independent Chair to bed independent Gait: 100 feet x 2 independently with FWW with WBAT on R. Up and down three 4- inch steps and two 6-inch steps with step to gait pattern while holding onto bilteral rails independently. Balance: Static Sitting: Normal Dynamic Sitting: Normal Static Standing: Poor Dynamic Standing: Poor Special Tests: Mobility Limitations Standardized Measure [facility] 6 clicks Basic Mobility Inpatient Short Form: Raw Score: 23 CMS Score: 11% deficit Informed Consent/Education: Patient instructed in purpose of PT consult and plan of care. Assessment: Pt is a 54-year-old male with history of post-traumatic arthritis status post right total knee arthroplasty on post-operative day 1 at time of discharge. Patient presented with clinical signs and symptoms consistent with current/admitting diagnoses that have resulted to mobility limitations, gait instability, generalized weakness, and impairment of motor control as demonstrated by the following impairment level findings: 1. Decreased strength to B LE major muscle groups 2. Impaired sitting/standing balance 3. Impaired activity tolerance 4. Limitation of joint range of motion in right knee 5. Impaired proprioception of B LE due to anesthesia Impairments continue to contribute to the following functional limitations: 1. Inability to safely ambulate without assistive device and physical assistance 2. Increase completion time for mobility ADL performance 3. Increased fall risk 4. Inability to negotiate steps alone safely Goals: Goals X1 week 1. Supine-Sit independent MET 2. Sit-Supine independent MET 3. Sit-Stand independent MET 4. Stand-Sit independent MET 5. Bed-Chair independent MET 6. Chair-Bed independent MET 7. Independent gait on level surface with use of least restrictive device for at least 300 feet without report of pain nor dyspnea NOT MET 8. Independent stair negotiation while holding onto bilateral rails for at least 5 steps without report of pain nor dyspnea MET 9. Independent with home exercise program NOT MET 10. Good static and dynamic standing balance/tolerance MET DISCHARGE RECOMMENDATIONS: Discharge to home with . OP PT in two weeks per orthopedic surgeon order. TREATMENT CODE/TIME: NC. Thank you very much for this referral. Jaimie Cartagena PT, DPT, CLT [facility] [place], [place]
== END 2019-07-17 11:10 | disposition home or self-care (01) | DRG 470 ==
LOC: PDS 05:57 → MS 11:13
PROVIDERS: Admitting Provider Student in an Organized Health Care Education/Training Program; Visit Provider Student in an Organized Health Care Education/Training Program
PROC: 0SRC0J9 Replacement of Right Knee Joint with Synthetic Substitute, Cemented, Open Approach (ICD-10-PCS; CPT 27447; principal; 2019-07-16 08:00)
PROC: 0SRC0J9 Replacement of Right Knee Joint with Synthetic Substitute, Cemented, Open Approach (ICD-10-PCS; CPT 27447; 2019-07-16 08:00)
DX: M17.31 Unilateral post-traumatic osteoarthritis, right knee (principal); Z96.7 Presence of other bone and tendon implants; M25.561 Pain in right knee; Z96.651 Presence of right artificial knee joint; S82.291S Other fracture of shaft of right tibia, sequela; X58.XXXS Exposure to other specified factors, sequela; G89.18 Other acute postprocedural pain; K21.9 Gastro-esophageal reflux disease without esophagitis
CPT/HCPCS: 27447; 20985; 20680; 76942; 97162; NC; 73590; J0690; J1100; J1885; J2001; J2250; J2405

== ENCOUNTER 2019-08-01 12:23 | Outpatient (CLI) | payer BC, SELFPAY ==
--- NOTE | 2019-08-01 10:30 | DI.RAD_ITS ---
EXAM: XR KNEE RT 1V INDICATION: 1ST POST OP RIGHT TKA. COMPARISON: XR KNEE RT 3V AP,LAT,IRINA from 04/10/2019 XR TIB/FIB RT from 04/10/2019 XR TIB/FIB RT from 07/16/2019 XR STANDING ALIGNMENT from 08/01/2019 XR STANDING ALIGNMENT from 08/01/2019 TECHNIQUE: 2D digital imaging was performed. FINDINGS: There is mild bilateral hip joint space narrowing. Acetabular spurring is seen bilaterally. There is no significant overall level leg length discrepancy at the level of the femoral heads. There is a total right knee prosthesis. There are old right tibial and fibular fractures and evidence of a prio r intramedullary itz in the tibia. Ankle joint spaces are well maintained. Left knee joint spaces are well maintained. IMPRESSION: Right knee prosthesis and old tibial and fibular fractures. No significant leg length discrepancy. DATA REPOSITORY: RADIATION DOSE DELIVERED:
== END 2019-08-01 12:43 ==
PROVIDERS: Visit Provider Student in an Organized Health Care Education/Training Program
DX: Z96.651 Presence of right artificial knee joint (principal); Z47.1 Aftercare following joint replacement surgery; Z87.81 Personal history of (healed) traumatic fracture; M16.0 Bilateral primary osteoarthritis of hip
CPT/HCPCS: 73560; 77073

== ENCOUNTER 2020-02-10 11:36 | Outpatient (CLI) | payer BC, SELFPAY ==
--- NOTE | 2020-02-10 10:30 | DI.RAD_ITS ---
EXAM: XR HIP LT COMPLETE AP PELVIS CLINICAL HISTORY: left hip pain. TECHNIQUE: 2D digital imaging was performed. COMPARISON: No exams were available for comparison FINDINGS: Mild degenerative changes are seen in the hips bilaterally characterized by mild joint space narrowin g and chondrocalcinosis. The bones are normally mineralized and intact. Soft tissues are unremarkab le. IMPRESSION: Mild degenerative changes of the left hip. DATA REPOSITORY: RADIATION DOSE DELIVERED:
== END 2020-02-10 11:56 ==
PROVIDERS: Referring Provider Physician Assistant; Visit Provider Physician Assistant
DX: M16.12 Unilateral primary osteoarthritis, left hip (principal)
CPT/HCPCS: 73502

== ENCOUNTER 2020-02-13 01:20 | Outpatient (CLI) | payer BC, SELFPAY ==
--- NOTE | 2020-02-13 14:44 | DI.RAD_ITS ---
EXAM: RF JOINT INJECTION FLUORO GUID CLINICAL HISTORY: L HIP INJ UNDER FLUORO, LT HIP PAIN, M25.552 TECHNIQUE: 2D and realtime digital imaging was performed. CONTRAST MATERIAL: Water soluble contrast was administered. COMPARISON: No exams were available for comparison FINDINGS: Fluoroscopy was provided for Dr. Grimes during the performance of a left hip injection. Please re kyle to the procedure report for complete details. Fluoro time: 5 seconds
--- NOTE | 2020-02-13 14:50 | W.PROCNOTE ---
Date of service: 02/13/20 Time of Service: 14:50 Procedure Note Date of procedure: 02/13/20 Procedure: Left Hip Injection with Fluoroscopic Guidance Surgeon/Proceduralist/Physician: Winston Grimes Procedure Diagnosis: Left Hip Osteoarthritis Procedure Indications: Reji has had persistent pain of the LEFT hip and groin. Noninvasive measures have been tried. To serve as both diagnostic and therapeutic, an injection under fluoroscopy was recommended. I had discussed the risks of the procedure and the patient elected to proceed. Procedure Description: Reji was greeted in the flouroscopy room. The correct side was identified and the consent was reviewed with the patient and signed. The patient was then placed in the supine position on the fluoroscopy table. The LEFT hip was then prepped with Chloraprep. The anterolateral injection starting point was identiifed by bony landmarks and fluoroscopy. The skin and soft tissue in the tract of the injection was anesthetized with 1% Lidocaine. A spinal needle was then inserted deep into the hip joint at the level of the lateral femoral neck under fluoroscopic guidance. A small amount of Omnipaque solution was injected to confirm intraarticular placement. Once confirmed, the hip was injected with 6cc of 0.5% Bupivicaine and 80mg of Depo-Medrol. A bandaid was placed on the injection site. The patient tolerated the procedure well and noted improvement in pre-injection pain.
[2020-02-13] MEDS: Bupivacaine 0.5% Pres-Free 10 ML VIAL 20 ML IJ (14:58)
[2020-02-13] MEDS: Omnipaque 300 MG/ML 10 ML BTL IJ (14:58)
[2020-02-13] MEDS: methylPREDNISolone ACETATE 80 MG/ML VIAL IM (14:59)
== END 2020-02-13 01:40 ==
PROVIDERS: Visit Provider Student in an Organized Health Care Education/Training Program
DX: M25.552 Pain in left hip (principal); M16.12 Unilateral primary osteoarthritis, left hip
CPT/HCPCS: 77002; J1040

== ENCOUNTER 2020-09-15 14:00 | Outpatient (CLI) | payer OTHER, BC, SELFPAY ==
--- NOTE | 2020-09-15 13:30 | DI.RAD_ITS ---
EXAM: XR SHOULDER RT COMPLETE 2+V CLINICAL HISTORY: right shoulder pain TECHNIQUE: COMPARISON: CR LEFT SHOULDER COMPLETE from 03/31/2015 FINDINGS: Two views were obtained. There is a suture anchor in the superior aspect of the humeral head. Bony alignment appears within normal limits. Cartilaginous joint space of the glenohumeral joint appears intact. No focal bony abnormality seen IMPRESSION: RADIATION DOSE DELIVERED: Total DLP
== END 2020-09-15 14:01 | disposition home or self-care (01) ==
LOC: DIORS 14:01
PROVIDERS: PCP Nurse Practitioner Family; Referring Provider Nurse Practitioner Family; Visit Provider Student in an Organized Health Care Education/Training Program
DX: M25.511 Pain in right shoulder (principal)
CPT/HCPCS: 73030

== ENCOUNTER 2020-10-05 02:45 | Outpatient (CLI) | payer OTHER, SELFPAY ==
--- NOTE | 2020-10-05 08:35 | DI.MRI_ITS ---
EXAM: MR UPPER JOINT RT WO CLINICAL HISTORY: R SHOULDER INJURY,RT ROTATOR CUFF TEAR,S/P REPAIR,Z98.890,M75.101 TECHNIQUE: Multiplanar multisequence MRI of the shoulder was performed. COMPARISON: CR XR SHOULDER RT COMPLETE 2+V from 09/15/2020 FINDINGS: MARROW:There is no evidence of fracture, Hill-Sachs deformity, nor ominous osseous lesions. There is degenerative subarticular cyst in the lateral aspect of the humeral head which measures 9 x 8 millime ters. There is also artifact in the superior aspect of humeral head from presence of an anchor devic e at this level most probably biceps tenodesis. ROTATOR CUFF MECHANISM: AC JOINT/ACROMIUM: There is significant degenerative changes at the AC joint and fluid signal within the AC joint itself. Some impingement on the supraspinatus at this level. There is no evidence of os acromiale. Supraspinatus: There is abundant signal abnormality in the supraspinatus tendon. There is also focus of fluid signal traversing the tendon thickness consistent with a full-thickness tear, this medial t o the foot pad insertion. There is no prominent retraction musculotendinous junction. There is some fluid in the subacromial-subdeltoid bursa. There is no prominent muscle atrophy. Infraspinatus: Some abnormal signal at the musculotendinous junction but no high-grade tear. Also no atrophy. Teres Minor: Intact. No evidence of tear nor muscle atrophy. Subscapularis/anterior cuff: There appears to be split tearing of the multipennate insertional fibers . Other consideration would be for pre previous surgical reimplantation. BICEPS TENDON: The biceps tendon is displaced approximately 1 centimeter meter medial to intertubercu lar groove and exhibits abnormal signal therein. At this level it is 9-10 millimeters wide. However , it remains attached to the anterosuperior labrum. There is some fluid in the tendon sheath. LABRUM: There is thin fluid signal interposed between the superior labrum and osseous glenoid which a ppears slightly more so than can be accounted by the normal sublabral recess and therefore is probabl y an element of SLAP-type tear. The posterior labrum appears unremarkable. There is tearing of the anterior labrum evident on 1 image. Inferior labrum appears intact. LABROLIGAMENTOUS/CAPSULAR COMPLEX: There is no evidence of avulsion of the anterior-inferior labrum, capsule, inferior glenohumeral liga ment complex nor disruption of the scapular periosteum to suggest the presence of a Bankart lesion. GLENOHUMERAL JOINT: No joint effusion nor obvious loose intra-articular bodies. No chondral defects. No osteophytes. No degenerative subarticular cysts. No evidence of capsular tear. The inferior gle nohumeral ligament is intact. QUADRILATERAL SPACE: No evidence of mass in the region of the axillary nerve and dorsal circumflex hu meral vessels. Visualized triceps muscle at this level appears unremarkable. No evidence of muscle denervation. IMPRESSION: 1. There is evidence of previous surgery which is probably biceps tenodesis and possibly subscapulari s revision. 2. Presently the biceps tendon is displaced medially from the intertubercular groove and exhibits a 9 millimeter diameter as it is perched over the lesser tuberosity where it also exhibits abnormal sign al. It is not detached from the anterosuperior labrum. There appears to be an element of SLAP tear of the superior labrum. Also appears to be some tearing of the anterior labrum. Posterior labrum is intact. 3. Full-thickness tear of the supraspinatus tendon without retraction of the musculotendinous junctio n. There is some fluid in the subdeltoid bursa. Significant degenerative changes in the AC joint. 4. Fluid signal at the musculotendinous junction of the infraspinatus but no high-grade tear nor atr ophy. 5. Degenerative subarticular cysts are noted in the lateral aspect of the humeral head. DATA REPOSITORY:
== END 2020-10-05 03:05 ==
PROVIDERS: PCP Nurse Practitioner Family; Visit Provider Student in an Organized Health Care Education/Training Program
DX: M25.511 Pain in right shoulder (principal); Z98.890 Other specified postprocedural states; M75.121 Complete rotator cuff tear or rupture of right shoulder, not specified as traumatic; S43.431A Superior glenoid labrum lesion of right shoulder, initial encounter
CPT/HCPCS: 73221

== ENCOUNTER 2020-11-02 02:13 | Outpatient (CLI) | payer OTHER, BC, SELFPAY ==
[2020-11-02 07:48] LABS: Hemoglobin A1C 5.4 % (<5.7)
[2020-11-02 08:23] LABS: Calculated LDL 145 mg/dL (<100); Cholesterol 209 mg/dL (<200); HDL Cholesterol 39 mg/dL (40-60); Triglyceride 128 mg/dL (<150)
[2020-11-04 21:32] LABS: Anabasine <2.0 ng/mL (<2.0); Cotinine 134 ng/mL (<5.0); Nicotine 17 ng/mL (<5.0)
== END 2020-11-02 02:14 | disposition home or self-care (01) ==
LOC: LBO 02:13
PROVIDERS: PCP Nurse Practitioner Family; Visit Provider Student in an Organized Health Care Education/Training Program
DX: F17.210 Nicotine dependence, cigarettes, uncomplicated (principal); M25.511 Pain in right shoulder; M75.21 Bicipital tendinitis, right shoulder; M75.51 Bursitis of right shoulder; Z13.220 Encounter for screening for lipoid disorders; Z13.1 Encounter for screening for diabetes mellitus; Z01.818 Encounter for other preprocedural examination
CPT/HCPCS: 36415; 80061; 80323; 83036

== ENCOUNTER 2020-11-03 03:08 | Outpatient (CLI) | payer OTHER, BC, SELFPAY ==
[2020-11-03 13:35] LABS: Source Nasal/Nares
[2020-11-03 16:21] LABS: COVID-19 PCR Negative (Negative)
== END 2020-11-03 03:09 | disposition home or self-care (01) ==
LOC: LBO 03:08
PROVIDERS: PCP Nurse Practitioner Family; Visit Provider Student in an Organized Health Care Education/Training Program
DX: Z20.822 Contact with and (suspected) exposure to COVID-19 (principal); Z01.818 Encounter for other preprocedural examination
CPT/HCPCS: 87635

== ENCOUNTER 2020-11-05 06:10 | Day surgery (SDC) | payer OTHER, BC, SELFPAY ==
[2020-11-05] VITALS (10 sets, daily range): BP systolic 107–153; BP diastolic 57–94; PULSE 62–76; RESP 13–18; TEMP 36.2–36.4; O2SAT 93–98; BMI 29.2
--- NOTE | 2020-11-05 06:38 | W.ANESPRE ---
General Info Date of Service Date Performed: 11/05/20 Height: 6 ft Weight: 97.8 kg Body Mass Index (BMI): 29.2 Surgical Procedure: Operation Date: 11/05/20 07:40 Proposed Procedures Side Surgeon p SHOULDER ARTHROSCOPY WITH EXTENSIVE DEBRIDEMENT, SUBACROMIAL DECOMPRSSION, REVISION ROTATOR CUFF Right Jian Blevins MD s Shoulder Bicep Tenodesis Right Jian Blevins MD Meds Allergies and Home Medications Allergies Allergy/AdvReac Type Severity Reaction Status Date / Time shellfish derived Allergy Unknown Nausea Verified 11/05/20 06:27 hydromorphone [From Dilaudid] AdvReac Severe Psychosis Verified 11/05/20 06:27 Home Medication Medication Instructions Recorded acetaminophen 1,000 mg PO Q8H PRN #90 tab 07/17/19 ibuprofen 600 mg PO TID PRN #90 tab 07/17/19 varenicline 0.5 mg (11)-1 mg (42) See Rx Instructions PO PER PKG DIR 10/14/20 tablets in a dose pack #53 dose pk bupropion HCl 150 mg tablet,12 hr 150 mg PO BID #120 tab 10/21/20 sustained-release Current Visit Medications: Current Medications Generic Name Dose Route Start Last Admin Trade Name Freq PRN Reason Stop Dose Admin Ringer's Solution 1,000 mls @ 100 mls/hr 11/05/20 06:00 IV 12/04/20 23:59 INFUSION COLIN Cefazolin Sodium/Dextrose 2 gm in 50 mls @ 100 mls/hr 11/05/20 06:00 Ancef Duplex IVPB 11/05/20 16:00 PREOP COLIN IV Miscellaneous Supplies 1 each 11/05/20 06:00 Iv Access IV 12/04/20 23:59 DIRECTED COLIN Sodium Chloride 0 ml 11/05/20 06:00 Normal Saline Flush 10 Ml Syr IV 12/04/20 23:59 PRN PRN Sodium Chloride 0 ml 11/05/20 06:00 Normal Saline 10 Ml Vial IJ 12/04/20 23:59 DIRECTED PRN Sterile Water 0 ml 11/05/20 06:00 Water,Injection,Sterile 10 Ml Vial IJ 12/04/20 23:59 DIRECTED PRN PFSH Active Problems Active Problems: Problem Status Onset Code Retained orthopedic hardware 07/16/19 Z96.9 Smoker F17.200 Tendonitis of long head of biceps brachii of right shoulder M75.21 Bursitis of right shoulder M75.51 Right rotator cuff tear M75.101 Status post right rotator cuff repair Z98.890 Degenerative joint disease of left hip M16.12 History of total right knee replacement (TKR) 07/16/19 Z96.651 Medical History Medical History Degenerative joint disease of left hip Foreign body in eye GERD (gastroesophageal reflux disease) Hearing loss Hiatal hernia Leg fracture, right Right rotator cuff tear Work injury Tibia/fibula fracture, shaft (~1988) Surgical History Surgical History (Updated 11/05/20 @ 06:28 by Carolina Tong RN) H/O hand surgery H/O hernia repair History of lumbar fusion History of lumbar surgery x3 History of repair of left rotator cuff History of total right knee replacement (TKR) (07/16/19) 07/16/19 Status post right rotator cuff repair Dr. Damico ~[id number] Tobacco Smoking/Tobacco Use Status: Current every day Tobacco Type: cigarettes Smoking cigarettes per day: 2 Alcohol Alcohol Intake: former Details: ETOH -- none Substance Use Substance use: Never Substance use type: does not use Vital Signs and Lab Results Vital Signs Most Recent Vital Signs in EMR: Most Recent Vital Signs Temp Pulse Resp BP Pulse Ox 36.2 C L 70 18 153/94 H 98 11/05/20 06:20 11/05/20 06:20 11/05/20 06:20 11/05/20 06:20 11/05/20 06:20 Lab Results Blood Type / Crossmatch: No Data to Display Complete Blood Count: No Data to Display Complete Metabolic Panel: Hemoglobin A1c 5.4 % (<5.7) 11/02/20 07:14 11/02/20 Liver Function Panel: No Data to Display Coagulation Panel: No Data to Display Cardiac Panel: No Data to Display Arterial Blood Gas: No Data to Display Venous Blood Gas: No Data to Display Pancreas Panel: No Data to Display Thyroid Panel: No Data to Display Infectious Disease: Coronavirus (COVID-19)(PCR) Negative (Negative) 11/03/20 11:13 11/03/20 Coronavirus 2019 Source Nasal/nares 11/03/20 11:13 11/03/20 Blood Cultures: No Data to Display Toxicology Panel: No Data to Display Anesthesia Assessment and Plan Anesthesia History Personal History: No History of Anesthesia Complications Family History: No Family History of Anesthesia Complications Exercise Tolerance Exercise Tolerance: Metabolic Equivalents>4 Pertinent Negatives Pertinent Negatives: No Symptoms of GERD, No Major Cardiovascular Symptoms or Complaints, No Major Pulmonary Symptoms or Complaints (+snores 2-3 weeks ago quit ) and No History of CVA/TIA Cardiac & Pulmonary Exam Cardiac Exam: Normal S1/S2 Heart Sounds Pulmonary Exam: Clear Bilateral Breath Sounds Airway Exam Known Difficult Airway: No Mallampati Class: 2 Mouth Opening: Normal (> 3cm) Thyromental Distance: Greater than 3 cm Facial Hair: Full Garcia Neck Range of Motion: Full ROM Neck Circumference: Normal Teeth Condition: Normal Dentition ASA Classification ASA Score: ASA 2 Emergency Case?: No NPO Status NPO Status: NPO Clears >2 hours, Solids >8 hours Anesthesia Plan Resuscitation Status: Full Code Anesthesia Technique: General Anesthesia Airway Planned: Endotracheal Tube Monitors Used: Standard Monitors
[2020-11-05] MEDS: Lactated Ringers 1,000 ML 100 ML IV (06:45)
--- NOTE | 2020-11-05 07:30 | W.ANESNERVE ---
Nerve Block Single Injection Procedure Date and Time Date Performed: 11/05/20 Procedure Start: 07:16 Location Where Procedure Performed Procedure Location: PACU Reason Performed: Postoperative Analgesia Requesting Provider: iJan Blevins Timeout Performed Timeout Performed: Yes Monitoring Used ECG, Blood Pressure and SpO2 Sterility Sterility: Hand Hygiene, Surgical Cap, Surgical Mask, Sterile Gloves and Chlorhexidine Sedation Given During Procedure Sedation Given (Indicate Dose Given): Versed IV Dose:: 2 mg Patient Mental Status Patient Mental Status: Sedate with meaningful communication Nerve Block 1st Nerve Block: Laterality: Right Block Type: Interscalene Needle / Catheter Used: 80mm SonoPlex II Local Anesthetic Bolus (Indicate Dose Given): Lidocaine used for local infiltration of skin, Injected in 3-5ml increments after negative blood aspiration, Bupivacaine 0.5% Dose:: 10 cc and Exparel Dose:: 10 cc Additives (Indicate Dose Given): None Ultrasound: Sterile probe cover and gel used Ultrasound Image Saved?: Yes Nerve Stimulator: Not Used Paresthesia: None Procedure Tolerated: No Complications and Patient tolerated well Procedure Outcome: Successful Performed By: Sparkle Morgan Supervised By: Levi Neff
[2020-11-05] MEDS: ceFAZolin 2 GM/50 ML BAG IVPB (07:36)
--- NOTE | 2020-11-05 11:35 | W.PM.DSUDISC ---
Discharge Plan Disposition Patient Disposition: HOME Condition: Stable Discharge Details Reason For Visit: Right shoulder surgery Attending Provider: Jian Blevins Primary Care Provider: Brayan Luke Home Meds and New Rx's Prescriptions: New naproxen 250 mg tablet 250 - 500 mg PO BID PRN (Reason: Moderate pain or swelling) Qty: 60 RF: 0 aspirin 81 mg tablet,delayed release (DR/EC) 81 mg PO DAILY 14 Days Qty: 14 RF: 0 oxycodone 5 mg tablet 5 - 10 mg PO Q4H PRN (Reason: moderate to severe pain) Qty: 22 RF: 0 Continued Chantix Starting Month Box 0.5 mg (11)- 1 mg (42) tablets,dose pack See Rx Instructions PO PER PKG DIR Qty: 53 RF: 0 bupropion HCl 150 mg tablet sustained-release 12 hr 150 mg PO BID Qty: 120 RF: 3 acetaminophen 500 mg tablet 1,000 mg PO Q8H PRN (Reason: pain) Qty: 90 RF: 3 Discontinued ibuprofen 600 mg tablet 600 mg PO TID PRNQty: 90 RF: 3 Discharge Instructions Additional Instructions: Surgery: Shoulder arthroscopy with revision supraspinatus and subscapularis rotator cuff repair, open biceps tenodesis, extensive debridement, subacromial decompression, prior failed repair suture removal, and humeral head microfracture. Activity: TAKE IT EASY. You should keep your arm at your side in a neutral position at all times except for physical therapy. Do not try to lift or raise your arm using your own muscles. You should use the sling whenever you are out of the house. You may have to adjust the abduction pillow or remove it for comfort. At home it is best to remove the sling and rest the arm on a pillow at your side or support the operative side with your other hand. You may allow the arm to dangle at your side. A physical therapy prescription will be sent electronically to begin in about 3 weeks. CONSERVATIVE PROTOCOL Non-weightbearing for 6 weeks (microfracture) Gentle, passive range of motion only for 8 weeks. No external rotation for 4 weeks. Active assisted and active range of motion weeks after 8 weeks Light strengthening after 3 months Prescriptions: Aspirin 81 mg take 1 daily to prevent a blood clot for 2 weeks Naproxen 250 mg take 1-2 every 12 hours with a meal as needed for moderate pain Oxycodone 5 mg take 1-2 every 4-6 hours as needed for severe pain You may use [id number] Tylenol (acetaminophen) as needed for mild pain. These pain medications may be taken all at once or in different combinations as needed. Also, recommend Colace (docusate) as a stool softener as surgery and pain medicine cause constipation. Dressings: Remove shoulder bandage after 3 days. Leave the sticky Steri-Strips in place until they fall off or remove them after you shower. Cover the incisions with Band-Aids or leave them open to air. The biceps bandage (inside upper arm) is glued on separately. You may leave this one on a few days longer if it is difficult to remove. There is also glue underneath this bandage that can be left in place until it peels off. You may shower after 5 days. Follow-up: 10-14 days with an orthopedic physician (9:00 AM on 11/18/20) television production assistant and [address] Blevins You may take off the leg compression stockings this evening at home. You may also leave them on a few days longer if you have a history of leg swelling or edema. Let us know right away if you develop any redness, drainage, fevers, chest pain, or trouble breathing. Do not drink alcohol or drive for at least 24 hours after anesthesia. Please call the office during business hours with any questions or concerns. Referrals: Jian Blevins MD [ [facility] STAFF PHYSICIAN] - Discharge Orders Discharge Orders: Discharge Order (Routine); Ordered 11/05/20 Ordered By: Jian Blevins DS: Diagnosis Discharge Diagnosis (1) Tendonitis of long head of biceps brachii of right shoulder: Status: Acute (2) Bursitis of right shoulder: Status: Acute (3) Right rotator cuff tear: Status: Acute (4) Status post right rotator cuff repair: Status: Chronic (5) Painful orthopaedic hardware: Status: Acute
--- NOTE | 2020-11-05 12:06 | ROE_ITS ---
Date of service: 11/05/20 Time of Service: 08:00 Operative Note Operative Note DATE OF PROCEDURE: 11/05/20 PRE-OP DIAGNOSIS: Right: 1. Rotator cuff tear 2. LHB medial dislocation/ tendinopathy 3. Bursitis 4. Prior rotator cuff repair hardware POST-OP DIAGNOSIS: same Right: 1. Rotator cuff tear: Failure of prior subscapularis and supraspinatus rotator cuff repairs 2. LHB medial dislocation/ tendinopathy 3. Bursitis 4. Prior rotator cuff repair hardware 5. Full-thickness cartilage loss humeral head about prior supraspinatus rotator cuff repair hardware PROCEDURE: Right: 1. Rotator cuff repair, CPT# 90139. This involved repair of the subscapularis and supraspinatus using anchors and sutures to reattach the rotator cuff back to the footprint of the lesser and greater tuberosity. 2. Open biceps tenodesis, CPT# 25846. This involved reattaching the long head of the biceps tendon to the proximal humerus in the sub-pectoral area of the bicipital groove at the correct tension. 3. Extensive debridement, CPT# 90843. This involved using arthroscopic hand instruments, power instruments, and radiofrequency instruments to release to release the long head of the biceps tendon and debride areas of labral tearing, synovitis, remove scar rotator cuff remnant about the lesser and greater tuberosity, release the MGHL and perform a microfracture of the humeral head cartilage lesion working within the glenohumeral joint anteriorly, superiorly and posteriorly. 4. Subacromial decompression with partial acromioplasty, CPT# 85734. This involved using arthroscopic power instruments and a radiofrequency wand to complete a bursectomy and remove bone spurs on the undersurface of the acromion. 5. Removal of deep hardware, CPT# 54665. This involved removal of failed retained suture material from the subscapularis and supraspinatus from prior rotator cuff repair surgery. The dietary assistant was medically required in order to help assist in techniques above, which require positioning the arm, holding the arthroscope, and manipulating multiple instruments and sutures at the same time. This cannot be done without the help of an experienced dietary assistant. SURGEON: Jian Blevins HUMANE OFFICER: Cathy Covington ANESTHESIA TYPE: Local By Surgeon, General LMA/ETT and Primary Nerve Block Refer to Anesthesia Record ESTIMATED BLOOD LOSS: 15 PATHOLOGY: none sent COMPLICATIONS: None Patient was transported to: PACU Patient's condition: stable Implants: Arthrex: 4.75mm SwiveLocks x 2, Knotless x 1 and Unicortical Proximal Biceps Tenodesis Button Indications: The patient was diagnosed with the above conditions and appropriately indicated for surgical intervention. Please see complete medical record for details. Findings: Exam under anesthesia: Full, symmetrical range of motion. Possible supra- physiologic external rotation of the elbow at the side. Glenohumeral joint: Significant long head of the biceps tendon fraying partial tearing involving disruption of the biceps anchor at the superior labrum with si gnificant medial dislocation of the intra-articular segment of the biceps tendon over a 50% upper full-thickness retracted subscapularis tear with a longitudinal split tear as well. Retained 2 pairs of permanent suture in the failed longitudinal split tear repair with prominent knot stacks. Narrow, full-thickness supraspinatus rotator cuff tear, centrally, with longitudinal split extending fci from the greater tuberosity to the glenoid and also exposing about 50% of the greater tuberosity laterally. Cartilage loss in a trough shape from lateral to medial through this rotator cuff tear with defect in the cartilage in line with a far medial retained metallic screw and prominent knot stacks suture. Largely intact remainder of articular cartilage and articular supraspinatus and infraspinatus. Mild anterior and moderate posterior labral fraying. Subacromial space: Significant lateral bursitis. Undersurface acromial irregularity, distal clavicle defect, and central bursa absent from prior surgery. Full-thickness narrow previous described supraspinous rotator cuff tear. Procedure Description: In the operating room, general anesthesia was induced. Bilateral shoulders were examined. The patient was positioned in the beachchair position. All bony prominences were well-padded. Preoperative antibiotics were administered. The shoulder was prepped and draped in the usual sterile fashion. The correct patient, procedure, and side of the procedure were all verified prior to incision. Starting through the posterior portal a standard complete diagnostic arthroscopy was performed of the glenohumeral joint including inspection of the long head of the biceps, anterior and superior labrum, subscapularis tendon, supraspinatus and infraspinatus tendons, and axillary recess. The glenoid and humeral head cartilage as well as the posterior labrum were inspected from an anterior viewing portal. Significant findings and interventions noted above. The biceps tendon was released from the superior labrum using arthroscopic scissors. The lesser tuberosity footprint was prepared using hand and power instruments for tendon healing. A rigid cannula was inserted anteriorly. The arm was positioned in neutral. The prior longitudinal repair site was exposed and debrided to stable tissue margin and arthroscopic scissors and graspers were required to remove 2 sets of retained permanent suture and knot stacks. Using a 1 portal technique, a suture lasso was used to pass a suture tape fiber link in cinch mode through the lateral and superior subscapularis. This stitch was used for traction and passing of a fiber tape more medially and centrally in the subscapularis tendon body bridging the longitudinal tear. The punch was used to localize placement of the anchor. Both sutures were passed through the anchor eyelet and the anchor was brought down to the bone with the sutures tensioned appropriately with church of the MGHL and biceps sling from medial to lateral. The arm was brought through full external rotation demonstrating no restricted motion due to the repair and secure fixation of the tendon and anchor to bone. The [facility] L was released centrally using arthroscopic scissors to prevent postoperative external rotation contracture. The articular sided supraspinatus was visualized exposing a longitudinal full- thickness narrow rotator cuff tear described above. A lateral 50 yard line portal was made and a blunt switching stick was brought through the bursal space and through the tear into the joint. Mechanical shaver was used to debride the tear margin and the fibrous tissue over the medial greater tuberosity supraspinatus footprint to a healthy bleeding bone margin to optimize healing for later repair. Various hand instruments were used to remove suture from a prominent permanent knot stack at the medial aspect of a trough of full- thickness cartilage loss about 15 mm from the medial margin of the rotator cuff footprint to the central humeral head. The knots and sutures complete removed. The metallic corkscrew type anchor was visible but was buried in surrounding bone. Decision was made to leave it in place to avoid making a large bone cavity defect in this more central humeral head area as this location would not impede planned rotator cuff repair. Given the full-thickness cartilage loss in his isolated location, decision was made to proceed with some sort of optimization so microfracture was done using a combination of 45 and 90 degree picks gently malleting a few millimeters apart enough holes to the appropriate depth for subchondral bleeding about the lesion. The glenohumeral joint was drained of arthroscopic fluid. 10 cc of 0.25% bupivacaine with epinephrine was infiltrated about a 3 cm longitudinal incision at the inferior margin of the pectoralis major localized over the long head of the biceps tendon. Blunt and sharp dissection were used to expose the tendon in the bicipital groove. The tendon was brought out of the wound and kept off the skin on top of a blue towel. The correct location for sub-pectoral fixation was localized, prepped with a rasp, and then drilled with a 3.2 mm drill pin in a unicortical fashion. Using a fiber loop suture the tendon was prepped from the musculotendinous junction a few centimeters proximal. The excess tendon was amputated. The free suture ends were then passed through the unicortical button implant. The drill pin was removed and the implant was placed into the humeral intramedullary canal. The button was flipped and the sutures were tensioned bringing the tendon down to bone. Tension and fixation were then tested and found to be appropriate. The suture ends were brought on opposite sides of the tendon and the free ends of the suture were were tied compressing tendon to bone. The wound was copiously irrigated with normal saline. Subcutaneous tissue was closed using 3-0 Monocryl in a buried interrupted fashion. Skin was closed using 3-0 Monocryl in a buried subcuticular running fashion. Skin glue was applied over the incision. Mastisol was applied about the incision. The incision was covered with Telfa, gauze, and covered with a Tegaderm dressing. Starting through the posterior portal, the arthroscope was directed into the subacromial space. The lateral 50 yard line portal was enlarged and Jessica cannula inserted. A combination of power instruments and a radiofrequency ablator were used to debride bursitis which was mostly laterally as well as expose and smooth bone spurring which was existed in residual fashion anteriorly on the undersurface of the acromion. The coracoacromial ligament was preserved. The bursectomy was completed viewing laterally and working from posteriorly and the rotator cuff was thoroughly inspected with findings noted above. Under direct visualization a superior posterior lateral and superior anterior lateral passport cannulas were inserted. The medial row was carefully exposed using hand instruments to retract the longitudinal split in the supraspinatus and confirmed the already debrided margin for optimize healing. A knotless swiv el lock anchor with fiber tape was placed just lateral to the articular margin and the fiber tapes were passed individually with a self retrieving suture passer medial to the longitudinal extent anteriorly and posteriorly brought out the anterior portal. BirdBeak and scorpion then used to place the knotless repair suture over the medial margin suture anchor and debrided site and securely tensioned down with margin convergence. The anterior and posterior fiber tapes were then brought laterally over the top and over the greater tuberosity remnant tissue far laterally to an additional swivel lock anchor and secured to prevent tear propagation and protect the side?side medial repair taking care not to place undue tissue tension to the lateral anchor. The repair was inspected through range of motion found of excellent stability and strength. The shoulder was drained of arthroscopic fluid. All portal sites were copiously irrigated. These incisions were closed using 3-0 Monocryl in a buried fashion, covered with Mastisol, Steri-Strips, Xeroform, dry gauze, and ABDs. The dressings were covered and secured with Medipore tape. The operative extremity was placed into a sling for immobilization. The patient awoke from anesthesia without complication and was transferred to the recovery room in a stable condition.
[2020-11-05] MEDS: fentaNYL 100 MCG/2 ML VIAL IVP ×2 (12:19→12:26)
[2020-11-05] MEDS: oxyCODONE 5 MG TAB PO (12:55)
--- NOTE | 2020-11-05 13:11 | W.ANESPOSTOP ---
Postoperative Evaluation Date, Time and Location Date Performed: 11/05/20 Time Performed: 13:12 Patient Location: Day Surgery Unit Vital Signs Most Recent Imported Vital Signs: Most Recent Vital Signs Temp Pulse Resp BP Pulse Ox 36.4 C L 71 16 133/91 H 93 11/05/20 12:49 11/05/20 12:49 11/05/20 12:49 11/05/20 12:49 11/05/20 12:49 Pain Score Most Recent Pain Score: Most Recent Pain Score Pain Level 6 11/05/20 12:49 Assessment Mental Status: Arousable with meaningful communication Airway and Respiratory Function: Patent airway with normal (patient baseline) respiratory exam Cardiovascular Function: Hemodynamically Stable Hydration Status: Adequately Hydrated Nausea & Vomiting: No Nausea or Vomiting Pain: Pain is tolerable/mild (<5/10) Peripheral Nerve Block: Regional nerve block not resolved at time of post operative discharge Postoperative Comments:: Patient reports pain in anterior humeral head related to biceps tendonisis repair. Block is working well.
== END 2020-11-05 13:45 | disposition home or self-care (01) ==
PROVIDERS: PCP Nurse Practitioner Family; Visit Provider Student in an Organized Health Care Education/Training Program
PROC: (CPT 29827; principal; 2020-11-05 07:30)
PROC: (CPT 23430; 2020-11-05 07:30)
DX: M75.21 Bicipital tendinitis, right shoulder (principal); M75.51 Bursitis of right shoulder; M75.101 Unspecified rotator cuff tear or rupture of right shoulder, not specified as traumatic
CPT/HCPCS: 29827; 29826; 29823; 23430; 76942; J0690; J1100; J2001; J2250; J2370; J2405; J2704; J3010

== ENCOUNTER → 2021-04-15 02:26 | Outpatient (CLI) | payer BC, SELFPAY ==
--- NOTE | 2021-04-15 09:00 | DI.RAD_ITS ---
Exam(s) RF JOINT INJECTION FLUORO GUID EXAM: RF JOINT INJECTION FLUORO GUID CLINICAL HISTORY: L HIP INJ UNDER FLUORO,DEGENERATIVE JOINT DISEASE,OA, M16.12 TECHNIQUE: Fluoroscopy provided. Radiologist not present. CONTRAST MATERIAL: None COMPARISON: No exams were available for comparison FINDINGS: Fluoroscopy was provided for Dr. Grimes during therapeutic left hip injection. Submitted image(s) reveal needle placement junction of lateral aspect of the femoral head and neck. Intra-articular contrast was injected. Please refer to the procedure report for complete details. Cumulative Dose: jose Flores=14.7 mGy IMPRESSION: RADIATION DOSE DELIVERED:
[2021-04-15] MEDS: Bupivacaine 0.5% Pres-Free 10 ML VIAL IJ (15:29)
[2021-04-15] MEDS: methylPREDNISolone ACETATE 80 MG/ML VIAL IM (15:30)
[2021-04-15] MEDS: Omnipaque 300 MG/ML 10 ML BTL IJ (15:32)
--- NOTE | 2021-04-16 22:29 | W.PROCNOTE ---
Date of service: 04/15/21 Time of Service: 15:00 Procedure Note Date of procedure: 04/15/21 Procedure: Left Hip Injection with Fluoroscopic Guidance Surgeon/Proceduralist/Physician: Winston Grimes Procedure Diagnosis: Left Hip Osteoarthritis/Femoroacetabular Impingement Procedure Indications: Nacho has had persistent pain of the LEFT hip and groin. Noninvasive measures have been tried. To serve as both diagnostic and therapeutic, an injection under fluoroscopy was recommended. I had discussed the risks of the procedure and the patient elected to proceed. Procedure Description: Nacho was greeted in the flouroscopy room. The correct side was identified and the consent was reviewed with the patient and signed. The patient was then placed in the supine position on the fluoroscopy table. The LEFT hip was then prepped with Chloraprep. The anterolateral injection starting point was identiifed by bony landmarks and fluoroscopy. The skin and soft tissue in the tract of the injection was anesthetized with 1% Lidocaine. A spinal needle was then inserted deep into the hip joint at the level of the lateral femoral neck under fluoroscopic guidance. A small amount of Omnipaque solution was injected to confirm intraarticular placement. Once confirmed, the hip was injected with 6cc of 0.5% Bupivicaine and 80mg of Depo-Medrol. A bandaid was placed on the injection site. The patient tolerated the procedure well and noted improvement in pre-injection pain.
== END ==
PROVIDERS: PCP Nurse Practitioner Family; Visit Provider Student in an Organized Health Care Education/Training Program
DX: M16.12 Unilateral primary osteoarthritis, left hip (principal); M25.852 Other specified joint disorders, left hip; M25.552 Pain in left hip; R10.32 Left lower quadrant pain
CPT/HCPCS: 20610; 77002; J1040

== ENCOUNTER 2021-05-11 09:53 | Outpatient (CLI) | payer OTHER, SELFPAY ==
--- NOTE | 2021-05-11 08:30 | DI.RAD_ITS ---
Exam(s) XR SHOULDER RT COMPLETE 2+V EXAM: XR SHOULDER RT COMPLETE 2+V CLINICAL HISTORY: right shoulder f/u. TECHNIQUE: 2D digital imaging was performed. Two images were obtained. COMPARISON: CR XR SHOULDER RT COMPLETE 2+V from 09/15/2020 FINDINGS: BONES: There are stable post operative changes present. No fracture or dislocation. JOINTS: The joint spaces are well maintained. No joint effusion is present. Degenerative changes are seen at the acromioclavicular joint. SOFT TISSUE: Normal. IMPRESSION: Stable postoperative changes. DATA REPOSITORY: RADIATION DOSE DELIVERED:
== END 2021-05-11 09:54 | disposition home or self-care (01) ==
LOC: DIORS 09:54
PROVIDERS: PCP Nurse Practitioner Family; Visit Provider Student in an Organized Health Care Education/Training Program
DX: M19.011 Primary osteoarthritis, right shoulder (principal)
CPT/HCPCS: 73030

== ENCOUNTER 2021-05-12 02:46 | Outpatient (CLI) | payer BC, SELFPAY ==
[2021-05-12 13:31] LABS: Abs Immature Grans 0.04 10^3/uL (0.0-0.06); Absolute Basophil Count 0.05 10^3/uL (0.0-0.2); Absolute Eosinophil Count 0.51 10^3/uL (0.0-0.7); Absolute Lymphocyte Count 2.28 10^3/uL (1.2-3.4); Absolute Monocyte Count 0.66 10^3/uL (0.1-0.8); Absolute Neutrophil Count 4.63 10^3/uL (1.2-6.7); Basophils % 0.6; ESR 1 mm/hr (0-20); Eosinophils % 6.2; HCT 43.5 % (40.0-50.0); HGB 14.7 g/dL (13.5-17.5); Immature Grans % 0.5; Lymphocytes % 27.9; MCH 30.8 pg (27.0-33.0); MCHC 33.8 % (32.0-36.0); MCV 91.2 fL (80-95); MPV 9.7 fL (8.0-11.0); Monocytes % 8.1; Neutrophils % 56.7; Nucleated RBC 0 %; Platelet Count 248 10^3/uL (130-400); RBC 4.77 10^6/uL (4.36-5.78); RDW 12.7 % (11.8-14.1); RDW-SD 42.5 fL; WBC 8.17 10^3/uL (4.4-10.8)
[2021-05-12 14:44] LABS: C-Reactive Protein 0.15 mg/dL (0.0-0.3)
== END 2021-05-12 02:47 | disposition home or self-care (01) ==
LOC: LBO 02:46
PROVIDERS: PCP Nurse Practitioner Family; Visit Provider Student in an Organized Health Care Education/Training Program
DX: Z98.890 Other specified postprocedural states (principal)
CPT/HCPCS: 36415; 85652; 85025; 86140

== ENCOUNTER → 2021-05-19 01:12 | Outpatient (CLI) | payer OTHER, SELFPAY ==
--- NOTE | 2021-05-19 07:15 | DI.MRI_ITS ---
Exam(s) MR UPPER JOINT RT WO EXAM: MR UPPER JOINT RT WO CLINICAL HISTORY: continued pain weakness,S/P ARTHROSCOPY,Z98.890. TECHNIQUE: Multiplanar multisequence MRI was performed. COMPARISON: MR MR UPPER JOINT RT WO from 10/05/2020 CR XR SHOULDER RT COMPLETE 2+V from 05/11/2021 FINDINGS: Examination is limited due to patient motion and orthopedic hardware. BONES: There is no fracture or contusion pattern. Postsurgical changes are seen in the proximal humer us. JOINTS: There are degenerative changes seen at the acromioclavicular joint with fluid within the AC j oint. The glenohumeral joint is normal. TENDONS: Supraspinatus: There is hyperintense signal and thickening of the supraspinatus tendon. There does a ppear to be discontinuity of the tendon (image 12 series 6 cells and 1). This is suspicious for tear . Infraspinatus: There is thickening and intermediate signal seen in the infraspinatus tendon consisten t with tendinosis. Subscapularis: There is tendinosis of the subscapularis tendon. Partial tear cannot be excluded as t here is some high signal within the tendon. Teres Minor: Unremarkable. Biceps and [place]: Postsurgical changes suggestive of a biceps tenodesis are noted. MUSCLES: Unremarkable. GLENOID LABRUM: Unremarkable on this noncontrast examination. SOFT TISSUES: Unremarkable. LIGAMENTS: Unremarkable. OTHER: There is a small amount of fluid in the subacromial subdeltoid bursa. IMPRESSION: 1. Hyperintense signal seen within the supraspinatus tendon suspicious for tear. 2. Tendinosis involving the infraspinatus and subscapularis tendons. 3. Postsurgical changes suggestive of biceps Tenodesis. 4. Postsurgical changes in the humeral head. 5. Degenerative changes of the acromioclavicular joint. DATA REPOSITORY:
== END ==
PROVIDERS: PCP Nurse Practitioner Family; Visit Provider Student in an Organized Health Care Education/Training Program
DX: Z47.89 Encounter for other orthopedic aftercare (principal); M25.512 Pain in left shoulder; R53.1 Weakness; M75.82 Other shoulder lesions, left shoulder; M19.012 Primary osteoarthritis, left shoulder
CPT/HCPCS: 73221

== ENCOUNTER 2021-05-25 12:01 | Outpatient (CLI) | payer BC, SELFPAY ==
--- NOTE | 2021-05-25 12:00 | DI.RAD_ITS ---
Exam(s) XR PELVIS AP EXAM: XR PELVIS AP CLINICAL HISTORY: preoperative planning. TECHNIQUE: 2D digital imaging was performed. COMPARISON: CR XR HIP LT COMPLETE AP PELVIS from 02/10/2020 FINDINGS: BONES: No acute fracture is present. No bony destructive lesion is seen. JOINTS: No dislocation present. There are stable degenerative changes of the hips bilaterally. SOFT TISSUE: Normal. IMPRESSION: Stable degenerative changes of the hips. DATA REPOSITORY: RADIATION DOSE DELIVERED:
== END 2021-05-25 12:02 | disposition home or self-care (01) ==
LOC: DIORS 12:01
PROVIDERS: PCP Nurse Practitioner Family; Referring Provider Nurse Practitioner Family; Visit Provider Physician Assistant
DX: M16.0 Bilateral primary osteoarthritis of hip (principal)
CPT/HCPCS: 72170

== ENCOUNTER 2021-06-04 01:51 | Outpatient (CLI) | payer BC, SELFPAY ==
[2021-06-04 08:40] LABS: HCT 46.4 % (40.0-50.0); HGB 15.4 g/dL (13.5-17.5); MCH 30.8 pg (27.0-33.0); MCHC 33.2 % (32.0-36.0); MCV 92.8 fL (80-95); MPV 10.1 fL (8.0-11.0); Platelet Count 205 10^3/uL (130-400); RDW 12.8 % (11.8-14.1); RDW-SD 43.8 fL; WBC 8.92 10^3/uL (4.4-10.8)
[2021-06-04 09:31] LABS: Anion Gap 7.7 mmol/L (3-11); BUN 22 mg/dL (7-18); CO2 29.3 mmol/L (21.0-32.0); CREATININE 1.1 mg/dL (0.70-1.30); Calcium 9.2 mg/dL (8.5-10.1); Chloride 103 mmol/L (98-107); Glucose 96 mg/dL (74-106); Potassium 4.3 mmol/L (3.5-5.1); Sodium 140 mmol/L (136-145)
== END 2021-06-04 01:52 | disposition home or self-care (01) ==
LOC: LBO 01:51
PROVIDERS: PCP Nurse Practitioner Family; Visit Provider Student in an Organized Health Care Education/Training Program
DX: M16.12 Unilateral primary osteoarthritis, left hip (principal); Z01.818 Encounter for other preprocedural examination
CPT/HCPCS: 36415; 80048; 85027; 86850; 86900; 86901

== ENCOUNTER 2021-06-04 01:59 | Outpatient (CLI) | payer BC, SELFPAY ==
[2021-06-04 10:46] LABS: Source Nasal/Nares
[2021-06-05 13:55] LABS: COVID-19 PCR Negative (Negative)
== END 2021-06-04 02:00 | disposition home or self-care (01) ==
LOC: LBO 01:59
PROVIDERS: PCP Nurse Practitioner Family; Visit Provider Student in an Organized Health Care Education/Training Program
DX: Z20.822 Contact with and (suspected) exposure to COVID-19 (principal)
CPT/HCPCS: 87635

== ENCOUNTER 2021-06-07 07:21 | Day surgery (SDC) | payer BC, SELFPAY ==
[2021-06-07] VITALS (8 sets, daily range): BP systolic 99–141; BP diastolic 61–95; PULSE 64–84; RESP 11–16; TEMP 36.3–36.8; O2SAT 92–98; BMI 28.7
--- NOTE | 2021-06-07 07:35 | W.PM.DSUDISC ---
Discharge Plan Disposition Patient Disposition: HOME Condition: Stable Discharge Details Reason For Visit: Left PAULINA Attending Provider: Winston Grimes Primary Care Provider: Brayan Luke Home Meds and New Rx's Prescriptions: New acetaminophen 500 mg capsule 1,000 mg PO Q8H PRN PRNQty: 90 RF: 0 aspirin 81 mg tablet,delayed release (DR/EC) 81 mg PO BID Qty: 60 RF: 0 celecoxib [Celebrex] 200 mg capsule 200 mg PO BID Qty: 60 RF: 0 pantoprazole [Protonix] 40 mg tablet,delayed release (DR/EC) 40 mg PO DAILY Qty: 30 RF: 0 oxycodone 5 mg tablet 5 mg PO Q4H PRNQty: 18 RF: 0 Continued lisinopril 30 mg tablet 30 mg PO DAILY Qty: 90 RF: 4 Discontinued Motrin PM 200-38 mg tablet 2 cap PO QHS RF: 0 Discharge Instructions Additional Instructions: Total Hip Discharge Instructions Activity: The most important activity is to walk. You should try to take short walks a few times a day. You have no restrictions on movement or positioning, but do not try to force what you do. You will find some stiffness and weakness with hip flexion (lifting your knee). Do not try to strengthen this too early, continue to practice walking and stairs and this will come. - Outpatient physical therapy can be helpful to help return you to a normal gait and improve your flexibility and strength. This can start around 2 weeks. For some patients, it?s not necessary. Usually this is determined at the time of discharge or at the first post-operative visit. - You should wear the ALBERTO hose on both legs for 2 weeks. Dressing: Keep the surgical dressing in place for at least one week. After the first week it may be removed and replace with light gauze and tape or nothing. It may get wet after 3 days but avoid soaking the dressing. If it gets wet, just lightly pat dry. It is important to always keep some gauze between skin folds, especially when you are sitting. Spend some time with the wound exposed when you are lying flat as the incision does wrinkle onto itself. Medications: - You should take Tylenol and an anti-inflammatory Celebrex as your primary pain control medications. If the Celebrex is too expensive or not covered, please call the office for another alternative (Advil/Ibuprofen or Naproxen/Aleve). - You have been prescribed a stronger pain medication Oxycodone for breakthrough pain, take as needed as prescribed. - You have also been prescribed a stomach acid reduction agent Pantoprozole to help reduce stomach acid and reflux. - You will be taking Aspirin 81mg twice a day for DVT prevention unless instructed otherwise. - If you have constipation you should take Colace or Miralax (both [id number]). It takes most people 3-4 days to have a bowel movement. Follow-up: 2 weeks If you have any acute concerns or questions, please do not hesitate to contact the office at [phone]. You may contact Dr. Grimes with any questions after hours through the hospital at [phone] or on his cell phone at [phone]. Referrals: Winston Grimes MD [ [facility] STAFF PHYSICIAN] - Equipment/Supplies: Walker Activity:: Activity as Tolerated Remove Dressings/Wound Care:: Do Not Remove Shower/Bathe:: 72 hours Diet:: As Tolerated Discharge Orders Discharge Orders: Discharge Order (Routine); Ordered 06/07/21 Ordered By: Clara Ervin DS: Diagnosis Discharge Diagnosis (1) Degenerative joint disease of left hip: Status: Chronic
--- NOTE | 2021-06-07 08:00 | W.ANESPRE ---
General Info Date of Service Date Performed: 06/07/21 Height: 6 ft Weight: 96.1 kg Body Mass Index (BMI): 28.7 Surgical Procedure: Operation Date: 06/07/21 10:05 Proposed Procedures Side Surgeon p Hip Total Hip Arthroplasty Left Winston Grimes MD Meds Allergies and Home Medications Allergies Allergy/AdvReac Type Severity Reaction Status Date / Time shellfish derived Allergy Unknown Nausea Verified 06/07/21 07:40 hydromorphone [From Dilaudid] AdvReac Severe Psychosis Verified 06/07/21 07:40 bupropion [From Wellbutrin] AdvReac Intermediate Rash and Verified 06/07/21 07:40 skin peeling Home Medication Medication Instructions Recorded lisinopril 30 mg tablet 30 mg PO DAILY #90 tab 03/10/21 acetaminophen 1,000 mg PO Q8H PRN PRN #90 cap 06/07/21 aspirin 81 mg PO BID #60 tab 06/07/21 celecoxib [Celebrex] 200 mg PO BID #60 cap 06/07/21 oxycodone 5 mg PO Q4H PRN #18 tab 06/07/21 Current Visit Medications: Current Medications Generic Name Dose Route Start Last Admin Trade Name Freq PRN Reason Stop Dose Admin Acetaminophen 1,000 mg 06/07/21 06:00 Acetaminophen 500 Mg Tab PO 06/07/21 16:00 PREOP ON LICENSE OF [facility] Acetaminophen 1,000 mg 06/07/21 09:00 Acetaminophen 500 Mg Tab PO TID ON LICENSE OF [facility] Aspirin 81 mg 06/07/21 20:00 Aspirin E.C. 81 Mg Tabec PO BID ON LICENSE OF [facility] Celecoxib 400 mg 06/07/21 06:00 Celecoxib 200 Mg Cap PO 06/07/21 16:00 PREOP ON LICENSE OF [facility] Celecoxib 200 mg 06/07/21 20:00 Celecoxib 200 Mg Cap PO BID COLIN Docusate Sodium 100 mg 06/07/21 07:34 Docusate Sodium 100 Mg Cap PO BID PRN PRN Constipation Hydromorphone HCl 0.5 mg 06/07/21 07:34 Hydromorphone 2 Mg/Ml Vial IVP Q2H PRN PRN Tranexamic Acid 1,000 mg/ 60 mls @ 360 mls/hr 06/07/21 06:00 Sodium Chloride IV 06/07/21 16:00 PREOP ON LICENSE OF [facility] Ringer's Solution 1,000 mls @ 80 mls/hr 06/07/21 06:00 IV 07/03/21 23:59 INFUSION COLIN Cefazolin Sodium/Dextrose 2 gm in 50 mls @ 100 mls/hr 06/07/21 06:00 Ancef Duplex IVPB 06/07/21 16:00 PREOP COLIN Cefazolin Sodium/Dextrose 1 gm in 50 mls @ 100 mls/hr 06/07/21 16:00 Ancef Duplex IVPB 06/08/21 08:29 Q8H COLIN IV Miscellaneous Supplies 1 each 06/07/21 06:00 Iv Access IV 07/03/21 23:59 DIRECTED COLIN Ondansetron HCl 4 mg 06/07/21 07:34 Ondansetron 4 Mg/2 Ml Vial IVP Q6H PRN PRN Nausea Oxycodone HCl 0 mg 06/07/21 07:34 Oxycodone 5 Mg Tab PO Q3H PRN PRN Pain Pantoprazole Sodium 40 mg 06/08/21 07:30 Pantoprazole 40 Mg Tabcr PO DAILY@0730 COLIN Sodium Chloride 0 ml 06/07/21 06:00 Normal Saline Flush 10 Ml Syr IV 07/03/21 23:59 PRN PRN Sodium Chloride 0 ml 06/07/21 06:00 Normal Saline 10 Ml Vial IJ 07/03/21 23:59 DIRECTED PRN Sterile Water 0 ml 06/07/21 06:00 Water,Injection,Sterile 10 Ml Vial IJ 07/03/21 23:59 DIRECTED PRN PFSH Active Problems Active Problems: Problem Status Onset Code Hypertension I10 S/P arthroscopy of right shoulder 11/05/20 Z98.890 Painful orthopaedic hardware T84.84XA Retained orthopedic hardware 07/16/19 Z96.9 Smoker F17.200 Tendonitis of long head of biceps brachii of right shoulder M75.21 Bursitis of right shoulder M75.51 Right rotator cuff tear M75.101 Status post right rotator cuff repair Z98.890 Degenerative joint disease of left hip M16.12 Medical History Medical History Foreign body in eye GERD (gastroesophageal reflux disease) Hearing loss Hiatal hernia Leg fracture, right Tibia/fibula fracture, shaft (~1988) Surgical History Surgical History H/O hand surgery Tendon repair - Left thumb Cellulitis right hand - I and D H/O hernia repair Left inguinal History of lumbar surgery x3 History of repair of left rotator cuff History of total right knee replacement (TKR) (07/16/19) 07/16/19 Tobacco Smoking/Tobacco Use Status: Current every day Tobacco Type: cigarettes Smoking cigarettes per day: 4 Quit Status: considering quitting Alcohol Alcohol Intake: current Alcohol intake frequency: a few times a month Alcohol type: beer Details: ETOH -- none Substance Use Substance use: Never Substance use type: does not use Vital Signs and Lab Results Vital Signs Most Recent Vital Signs in EMR: Most Recent Vital Signs Temp Pulse Resp BP Pulse Ox 36.8 C 84 16 141/95 H 98 06/07/21 07:42 06/07/21 07:42 06/07/21 07:42 06/07/21 07:42 06/07/21 07:42 Lab Results Blood Type / Crossmatch: Patient ABO/Rh A Positive 06/04/21 08:30 06/04/21 Antibody Screen NEGATIVE 06/04/21 08:30 06/04/21 Complete Blood Count: White Blood Count 8.92 10^3/uL (4.4-10.8) 06/04/21 08:30 06/04/21 Red Blood Count 5.00 10^6/uL (4.36-5.78) 06/04/21 08:30 06/04/21 Hemoglobin 15.4 g/dL (13.5-17.5) 06/04/21 08:30 06/04/21 Hematocrit 46.4 % (40.0-50.0) 06/04/21 08:30 06/04/21 Platelet Count 205 10^3/uL (130-400) 06/04/21 08:30 06/04/21 Complete Metabolic Panel: Sodium Level 140 mmol/L (136-145) 06/04/21 08:30 06/04/21 Potassium Level 4.3 mmol/L (3.5-5.1) 06/04/21 08:30 06/04/21 Chloride Level 103 mmol/L (98-107) 06/04/21 08:30 06/04/21 Carbon Dioxide Level 29.3 mmol/L (21.0-32.0) 06/04/21 08:30 06/04/21 Blood Urea Nitrogen 22 mg/dL (7-18) H 06/04/21 08:30 06/04/21 Creatinine 1.1 mg/dL (0.70-1.30) 06/04/21 08:30 06/04/21 Estimated GFR/1.73 m2 >= 60.00 (mL/min/1.73m2) 06/04/21 08:30 06/04/21 Calcium Level 9.2 mg/dL (8.5-10.1) 06/04/21 08:30 06/04/21 Glucose Level 96 mg/dL (74-106) 06/04/21 08:30 06/04/21 C-Reactive Protein 0.15 mg/dL (0.0-0.3) 05/12/21 13:26 05/12/21 Liver Function Panel: No Data to Display Coagulation Panel: No Data to Display Cardiac Panel: No Data to Display Arterial Blood Gas: No Data to Display Venous Blood Gas: No Data to Display Pancreas Panel: No Data to Display Thyroid Panel: No Data to Display Infectious Disease: Coronavirus (COVID-19)(PCR) Negative (Negative) 06/04/21 08:49 06/04/21 Coronavirus 2019 Source Nasal/Nares 06/04/21 08:49 06/04/21 Blood Cultures: No Data to Display Toxicology Panel: No Data to Display Anesthesia Assessment and Plan Anesthesia History Personal History: No History of Anesthesia Complications Family History: No Family History of Anesthesia Complications Exercise Tolerance Exercise Tolerance: Metabolic Equivalents>4 Pertinent Negatives Pertinent Negatives: No Symptoms of GERD, No Major Cardiovascular Symptoms or Complaints, No Major Pulmonary Symptoms or Complaints and No History of CVA/TIA Cardiac & Pulmonary Exam Cardiac Exam: Normal S1/S2 Heart Sounds Pulmonary Exam: Clear Bilateral Breath Sounds Implantable Cardiac Device Does patient have a Pacemaker or an ICD?: No Airway Exam Known Difficult Airway: No Mallampati Class: 2 Mouth Opening: Normal (> 3cm) Thyromental Distance: Greater than 3 cm Neck Range of Motion: Full ROM Neck Circumference: Normal Teeth Condition: Normal Dentition ASA Classification ASA Score: ASA 2 Emergency Case?: No NPO Status NPO Status: NPO Clears >2 hours, Solids >8 hours Anesthesia Plan Resuscitation Status: Full Code Anesthesia Technique: Spinal Anesthesia Airway Planned: Natural Airway Monitors Used: Standard Monitors Preoperative Comments:: From [facility] pain clinic note dated 09/14/2009 PROBLEM: 1. 90% low back, 10% bilateral leg pain -- resolved. A. L5-S1 diskectomy, 1998. B. L5-S1 diskectomy 2000 C. L5-S1 ASF-PSF, 02/2002 (Nithya). 2. A 82-lnsq-axwm smoking history. 3. 60% back, 40% right leg pain. A. Multilevel degeneration.
[2021-06-07] MEDS: Celecoxib 200 MG CAP 400 MG PO (08:13)
[2021-06-07] MEDS: Acetaminophen 500 MG TAB 1000 MG PO (08:13)
[2021-06-07] MEDS: Lactated Ringers 1,000 ML 80 ML IV (08:14)
[2021-06-07] MEDS: ceFAZolin 2 GM/50 ML BAG IVPB (09:07)
[2021-06-07] MEDS: Ketorolac 30 MG/ML VIAL (09:58)
[2021-06-07] MEDS: Bupivacaine 0.25% Pres-Free 30 ML VIAL (09:58)
--- NOTE | 2021-06-07 10:18 | DI.RAD_ITS ---
Exam(s) XR HIP LT IN OR EXAM: XR HIP LT IN OR CLINICAL HISTORY: DJD LEFT HIP. TECHNIQUE: 2D digital imaging was performed. COMPARISON: CR XR PELVIS AP from 05/25/2021 CR XR PELVIS AP from 05/25/2021 FINDINGS: Fluoroscopy was provided intraoperatively during left hip arthroplasty. See procedure report for det ails. Total fluoroscopy time 30 seconds Cumulative dose 4.60mGy IMPRESSION: DATA REPOSITORY: RADIATION DOSE DELIVERED:
--- NOTE | 2021-06-07 11:44 | ROE_ITS ---
Date of service: 06/07/21 Time of Service: 10:44 Operative Note Operative Note DATE OF PROCEDURE: 06/07/21 PRE-OP DIAGNOSIS: Left Hip Osteoarthritis POST-OP DIAGNOSIS: same PROCEDURE: Left Anterior Total Hip Arthroplasty SURGEON: Winston Grimes ROLLER TURNER: Clara Ervin ANESTHESIA TYPE: Spinal Refer to Anesthesia Record ESTIMATED BLOOD LOSS: 200 PATHOLOGY: none sent TOURNIQUET TIME: 0 COMPLICATIONS: None Patient was transported to: PACU Patient's condition: stable Implants: 1. Depuy [place] Acetabular Component, 54mm 2. Depuy Acetabular Liner, [id number] 3. Depuy Corail Standard Collared Femoral Stem, Size 12 4. Depuy Altrx Ceramic Femoral Head, Size 36+5mm Indications: I have seen Nacho in clinic for symptoms of hip arthritis, confirmed with radiographic findings and intra-articular injection. He has exhausted nonoperative methods and was having significant limitations in daily function and desired better function and less pain. I discussed the technical details of a hip replacement. I explained the risks of the procedure to include, but not limited to, bleeding, infection, pain, stiffness, fracture, damage to nerves and vessels, damage to muscles and tendons, loosening, instability, leg length inequality, need for repeat procedure, blood clot and cardiopulmonary demise. Despite these risks, Nacho elected to proceed. Findings: There was focal loss of cartilage from the superior femoral head. Procedure Description: Nacho was greeted in the preoperative holding area where the correct side was identified and marked. The consent was reviewed with the patient and signed. The history and physical was updated. All questions were answered. He was taken back to the operating room. A spinal anesthestic was then administ cam[place]. The feet were wrapped with cast padding and Coban and then placed into the boot liners and then into the boots. Care was taken to protect the skin and make sure the heels were fully down and the boots were stable. The patient was then positioned onto the HANA table. Both legs were held in a neutral position. SCDs were applied. The patient was then slid down onto a peroneal post. Prophylactic antibiotics in the form of Cefazolin were administered. 1g of Tranxemic Acid was given intravenously within 30 minutes of incision. The left leg was then prepped with Chloraprep and draped in a standard fashion. A second prep with Chloraprep was performed prior to placement of a shower-curtain type drape with Iodine impregnated skin protection. A timeout to confirm correct identity, side and site, procedure, allergies, anesthesia, and medical concerns was performed. An obliquely oriented incision was made starting lateral to the ASIS and running distal over the Tensor Fascia Bia (TFL) muscle belly toward the fibular head, approximately 10cm. The skin and soft tissue was dissected sharply, through Betty?s fascia, and to the fascia of the TFL. With the fascia and superior border of the IT band identified, the fascia was incised with a new knife just above any perforators from the IT band. The TFL muscle belly was bluntly dissected away from the fascia and moved laterally. The fat between TFL and rectus was identified to ensure the dissection was not within the TFL. Blunt dissection created space between abductors and the capsule and retractor was placed over the lateral femoral neck. The fibers of the rectus femoris tendon were identified and these were freed from the anterior capsule. A second cobra retractor was placed around the medial femoral neck. The TFL was further retracted laterally to show the deep fascia. Careful dissection through this layer identified three main crossing vessels of the lateral femoral circumflex. These were cauterized in multiple locations and then cut without any noticeable bleeding. The TFL was further released bluntly from the deep fascia to expose anterior hip capsule and fat The Mukund orthopaedic retractor was then placed beneath the TFL and against sartorius and medial soft tissues to protect and retract the soft tissues. A T-capsulotomy was then performed starting at the superior lateral acetabulum and moving distally to the intertrochanteric ridge. These capsular flaps were tagged with a No. 1 Ethibond and elevated from within. The capsular flaps were released to the shoulder of the lateral neck and to the lesser trochanter to give excellent visualization of the proximal femur. A neck osteotomy was performed using an oscillating saw based on preoperative templates. This cut started in the shoulder and of the lateral neck and exited medially. The saw was at all times directed medially to avoid injury to the greater trochanter. Gross traction was applied to the leg and the osteotomy opened. The femoral head was removed with a corkscrew, making sure to protect the TFL on its exit. Traction was released after head removal. This was measured on the back table to determine the starting reamer size. The femoral head showed complete loss of cartilage from the superior weight-bearing portion of the femoral head. Portions of the rectus obscuring visualization were minimally elevated off the superior acetabulum. An anterior retractor was placed over the anterior wall between capsule and labrum and attached to the Gripper retraction system. The femur was rotated to 90 degrees and medial capsule was fully released until the lesser trochanter was palpable and visible; the femur was returned to 30 degrees. A posterior retractor was placed similarly between capsule and labrum. This provided excellent visualization. The contents of the cotyloid fossa were removed with electrocautery and the labrum was removed with a knife. Acetabular reaming began with a 50mm reamer. This first reaming was directed anterior to posterior and medial to get down to the true floor. This was inspected and reamed until the true floor was reached. The anterior retractor was then released and entry and exit was provided by traction on the capsular flaps. I then reamed sequentially up to a 54mm reamer where good fit was obtained. The larger reamers were oriented based on anatomical reference of the anterior and lateral [place] to ensure proper abduction and anteversion. Positioning and size was confirmed with the fluoroscopy. A 54mm Depuy [place] acetabular component was selected. The acetabulum was reamed around the periphery with the selected acetabular size to prevent a rim fit. The deep tissues were irrigated. The acetabular component was then impacted in a position of about 40-45 degrees of abduction and 15-20 degrees of anteversion, using the patient?s anatomy as the ultimate landmark. Fluoroscopy was used to confirm this. There was excellent home health outreach coordinator of the acetabular component and the inserting handle was removed. The acetabular liner, Depuy [id number] polyethylene liner, was inserted and lined up with the tines of the acetabular component. There was no soft tissue interposition. The liner was then impacted into position and confirmed to be well-seated. A portion of the vinny-articular cocktail was then injected around the acetabulum into the capsule and periosteum. This cocktail consisted of 50cc of 0.25% Bupivicaine and 20cc of Exparel and 30mg of Ketorolac. The leg was rotated to 120 degrees. Any remaining medial capsule was released until the lesser trochanter was easily palpable. A retractor was placed medially. The lateral capsule was further released into the shoulder to allow access to the greater trochanter. A Beckman retractor was placed over the greater trochanter which allowed the trochanter to flip in front of the capsule for excellent exposure. The leg was brought down into maximal extension and 20 degrees of adduction while ensuring there was no impingement on the acetabulum. Any remnant capsule within the trochanter was released. Piriformis and obturator externis were identified and protected. There was excellent access to the proximal femur. The lateral neck remnant was removed with a rongeur. A blunt canal probe was used to identify the canal and trajectory for later broaching. A box osteotome initiated the broach course. A small curved rasp and a curved curette were used to work laterally. Broaching then began with a size 8 Corail broach. This was inserted manually around the trochanter and into the canal before mallet blows. The broach was seated to a few millimeters below the cut level based on the neck cut and the preoperative template. Sequential broaching was continued with the [employer]Pay pneumatic broaching device until a tight fit was obtained with good rotational control of the femur. A trial standard neck was inserted along with a +1.5 trial head. The leg was brought out of extension and adduction and then reduced with traction and internal rotation. The leg was stable anteriorly in a position of 30 degrees of extension and 90 degrees of external rotation. Fluoroscopy was used to ensure there was no fracture and the stem was seated well. Leg lengths were checked with an AP pelvis and pelvic reference points. [employer] navigation system was used to confirm appropriate positioning and leg length and offset. This slightly under recreated offset, so I planned to go to the +5 and advance the stem a few millimeters. Once content with the desired plan for offset and leg lengths, the leg was brought back into extension, external rotation and adduction. The broach handle was attached and I was able to advance the stem approximately 2mm. The stem was then removed and the periosteum and surrounding tissue was injected with remaining portion of the vinny-articular cocktail. The proximal femur was irrigated as well as the deep tissues. The Depuy [place] standard collared stem, size 12, was then manually inserted into the proximal femur making sure to control rotation. It was then malleted into position with light blows, giving breaks to allow bone expansion and decrease risk of fracture. The selected Depuy Altrx Ceramic Head, size 36+5mm, was then placed onto the clean and dry trunnion and secured with impaction onto the tapered fit. The leg was brought back out of extension and adduction and reduced with traction and internal rotation. Stability was confirmed with no shuck at 90 degrees of external rotation and 30 degrees of extension. No impingement through range of motion arc. Final x-ray images were obtained with fluoroscopy to confirm adequate positioning and no intraoperative fracture. The deep tissues were thoroughly irrigated with Irrisept chlorhexadine solution. The second dose of TXA 1g was administered intravenously.The capsule was then reapproximated with the previously placed Ethibond sutures. The TFL fascia was finally closed with a No. 2 Stratafix, barbed suture. Deep tissues were then reapproximated with 0 Vicryl and a running 2-0 Vicryl. The skin was closed with a running 4-0 Monocryl in a subcuticular fashion. This was reinforced with skin glue. A Mepilex silver dressing was applied. At the end of the case, all counts were correct. Nacho was transferred to the hospital bed without difficulty and suffering no apparent complication. Nacho has a good prognosis. Physical therapy will start today and without restrictions, weight-bearing as tolerated. Aspirin 81mg BID will be used for DVT prophylaxis.
--- NOTE | 2021-06-07 13:14 | W.ANESPOSTOP ---
Postoperative Evaluation Date, Time and Location Date Performed: 06/07/21 Time Performed: 11:14 Patient Location: Day Surgery Unit Vital Signs Most Recent Imported Vital Signs: Most Recent Vital Signs Temp Pulse Resp BP Pulse Ox 36.5 C 70 16 118/68 94 06/07/21 11:56 06/07/21 11:56 06/07/21 11:56 06/07/21 11:56 06/07/21 11:56 Pain Score Most Recent Pain Score: Most Recent Pain Score Pain Level 0 06/07/21 11:56 Assessment Mental Status: Awake (Alert & Oriented to Patient Baseline) Airway and Respiratory Function: Patent airway with normal (patient baseline) respiratory exam Cardiovascular Function: Hemodynamically Stable Hydration Status: Adequately Hydrated Nausea & Vomiting: No Nausea or Vomiting Pain: Pt. Denies Any Pain Peripheral Nerve Block: Other (Spinal is appropriately wearing off)
--- NOTE | 2021-06-07 13:17 | IN_ITS ---
Date of service: 06/07/21 Time of Service: 13:17 PT Notes Visit Reasons: Left [facility] Physical Therapy Day Surgery Initial Evaluation Date: 06/07/2020 Referring Doctor: MEGA Solo PT Orders: PT CONSULT: S/P Ortho Surgery Precautions: WBAT on left LE with AD. Patient Profile/Admitting Diagnosis: Reji is a 56-year-old male with degenerative joint disease of the left hip S/P is total hip arthroplasty on postoperative day 0. PMHX: Medical History Foreign body in eye GERD (gastroesophageal reflux disease) Hearing loss Hiatal hernia Leg fracture, right Tibia/fibula fracture, shaft (~1988) Surgical History (Updated 05/25/21 @ 12:15 by Cathy Covington) H/O hand surgery Tendon repair - Left thumb Cellulitis right hand - I and D H/O hernia repair Left inguinal History of lumbar surgery x3 History of repair of left rotator cuff History of total right knee replacement (TKR) (07/16/19) 07/16/19 Social History/Home Situation: Patient lives with his , daughter, and two grandchildren. He notes there are 5 steps onto his porch. No stairs in the house. Notes that he has five children and 11 grandchildren, with 4 children that live in [place]. Equipment Owned/DME: FWW, Subjective: Reported mild lightheadedness when he tried to stand up for the first time after surgery. Complains of numbness on the side of the left leg and L foot as well as on both his bottom area. States 2-3/10 pain in the L hip with ambulation activity. Objective: General Observation: Supine in bed. TEDS in B legs. Mepilex Ag over surgical incision. Mental Status: Alert and oriented x 4 Pain: 2-3/10 pain in the L hip ROM: Right Upper Extremity: Shoulder Flexion WFL. Shoulder abduction WFL. Elbow flexion WFL. Wrist flexion WFL. Functional opening and closing of hand WFL. Left Upper Extremity: Shoulder Flexion WFL. Shoulder abduction WFL. Elbow flexion WFL. Wrist flexion WFL. Functional opening and closing of hand WFL. Right Lower Extremity: Hip flexion WFL. Hip abduction WFL. Knee flexion WFL. Ankle dorsiflexion WFL. Ankle plantarflexion WFL. Left Lower Extremity: Hip flexion WFL. Hip abduction WFL. Knee flexion WFL. Ankle dorsiflexion WFL. Ankle plantarflexion WFL. Strength: Right Upper Extremity: Shoulder flexors 5/5. Shoulder abductors 5/5. Elbow flexors 5/5. Elbow extensors 5/5. Process Safety Manager strong. Left Upper Extremity: Shoulder flexors 5/5. Shoulder abductors 5/5. Elbow flexors 5/5. Elbow extensors 5/5. Process Safety Manager strong. Right Lower Extremity: Hip flexors 4/5. Hip abductors 4/5. Knee flexors 5/5. Knee extensors 4/5. Ankle dorsiflexors 5/5. Ankle plantarflexors 5/5. Left Lower Extremity:Hip flexors 5/5. Hip abductors 5/5. Knee flexors 5/5. Knee extensors 5/5. Ankle dorsiflexors 5/5. Ankle plantarflexors 5/5. Sensation: Numbness in B gluteal areas, L lateral leg, and L foot Bed Mobility/Transfers: Supine to sit independent Sit to stand contact guard assist Stand to sit supervision Bed to chair stand by assist Gait: 100 feet using FWW with stand by assist, step-through gait pattern with report of 2-3/10 pain in the L hip. Walker was readjusted to patient's height to minimize trunk flexion. Stairs: Up and down 6 x 4-inch steps and 4 x 6-inch steps with while holding onto B rails with step-to gait pattern requiring only stand by assist. Balance: Static Sitting: Normal Dynamic Sitting: Normal Static Standing: Fair Dynamic Standing: Fair Special Tests: Mobility Limitations Standardized Measure [facility] AM-PAC 6 clicks Basic Mobility Inpatient Short Form: Raw Score: 24 CMS Score: 0% deficit Informed Consent/Education: Patient instructed in purpose of PT consult. Education and training on initial set of exercises that can be done at home have been completed with patient. Assessment: Able to perfom 5 exercises-- LAQs, quads sets, gluteal sets, ankle DF/PF, and seate dhip flexion x 10 with no difficulty nor increase in pain. Instructed patient and to reach out to orthopedic clinic regarding upload of NanoGram luanne on smart phone. Will have good support from and family. Patient presents with clinical signs and symptoms consistent with current/admitting diagnoses that have resulted to mobility limitations, gait instability, generalized weakness, and impairment of motor control as demonstrated by the following impairment level findings: 1. Decreased strength to left hip major muscle groups 2. Impaired standing balance Impairments are contributing to the following functional limitations: 1. Inability to safely ambulate without assistive device 2. Increase completion time for mobility ADL performance 3. Increased fall risk Patient is assessed as a 39403 moderate complexity based on the following: History: 56-year-old male with impairment level findings, functional limitations, and past medical history as indicated above Examination: Demonstrable impairment in strength, balance, and mobility level with underlying impairments and functional limitations as documented above Presentation: Evolving Decision Makin moderate complexity Goals: N/A. PT evaluation and 1-2 treatment sessions only for functional mobility training using recommended AD and for HEP instruction. Plan of Care/Treatment Plan: N/A. PT evaluation and 1-2 treatment session only for functional mobility training using recommended AD and for HEP instruction. DISCHARGE RECOMMENDATIONS: [] Home with no services [] [] Home with services [specify] [X] Home with outpatient PT. Home when medically cleared by orthopedic surgeon. Will benefit from outpatient PT services in order to facilitate return to premorbid independent level and to community ambulation without an assistive device. [] SNF for continued rehabilitation [] [] [facility] [] [] SNF versus LTC based on ability to participate and progress [] TREATMENT CODE/TIME: 50598 x 20 minutes, 06840 x 8 minutes beginning at 13:17 PM. Thank you for the opportunity to participate in the care of this patient. Jaimie Cartagena PT, DPT, CLT [facility] [place], [place]
[2021-06-07] MEDS: oxyCODONE 5 MG TAB PO (13:37)
== END 2021-06-07 14:05 | disposition home or self-care (01) ==
PROVIDERS: PCP Nurse Practitioner Family; Visit Provider Student in an Organized Health Care Education/Training Program
PROC: (CPT 27130; principal; 2021-06-07 09:45)
DX: M16.12 Unilateral primary osteoarthritis, left hip (principal); I10 Essential (primary) hypertension; F17.210 Nicotine dependence, cigarettes, uncomplicated
CPT/HCPCS: 27130; 97162; 97530; 73501; J0690; J1100; J1885; J2250; J2405

== ENCOUNTER 2021-06-22 10:26 | Outpatient (CLI) | payer BC, SELFPAY ==
--- NOTE | 2021-06-22 10:00 | DI.RAD_ITS ---
Exam(s) XR HIP LT COMPLETE AP PELVIS EXAM: XR HIP LT COMPLETE AP PELVIS CLINICAL HISTORY: 1ST POST OP L PAULINA TECHNIQUE: COMPARISON: CR XR PELVIS AP from 05/25/2021 FINDINGS: Two views were obtained and show total hip joint replacement in position. The components appear well seated. No other significant bony abnormality seen. IMPRESSION: RADIATION DOSE DELIVERED: Total DLP
== END 2021-06-22 10:27 | disposition home or self-care (01) ==
LOC: DIORS 10:26
PROVIDERS: PCP Nurse Practitioner Family; Referring Provider Nurse Practitioner Family; Visit Provider Physician Assistant Surgical
DX: Z96.642 Presence of left artificial hip joint (principal); Z47.1 Aftercare following joint replacement surgery
CPT/HCPCS: 73502

== ENCOUNTER 2021-06-30 01:54 | Outpatient (CLI) | payer BC, SELFPAY ==
[2021-06-30 11:59] LABS: Source Nasal/Nares
[2021-06-30 16:13] LABS: COVID-19 PCR Negative (Negative)
== END 2021-06-30 01:55 | disposition home or self-care (01) ==
LOC: LBO 01:54
PROVIDERS: PCP Nurse Practitioner Family; Visit Provider Student in an Organized Health Care Education/Training Program
DX: Z20.822 Contact with and (suspected) exposure to COVID-19 (principal)
CPT/HCPCS: 87635

== ENCOUNTER 2021-07-01 05:55 | Day surgery (SDC) | payer OTHER, SELFPAY ==
--- NOTE | 2021-06-30 16:28 | ANES.PREOP_ITS ---
General Info Date of Service Date Performed: 07/01/21 Height: 6 ft Weight: 100.244 kg Body Mass Index (BMI): 29.9 Surgical Procedure: Operation Date: 07/01/21 07:40 Proposed Procedures Side Surgeon p Shoulder Rotator Cuff Arthroscopic w/revision Extensive Debridement, Subacromial Decompression, Removal of hardware, Poss. Allograft Superior Capsular Reconstuction Right Jian Blevins MD Meds Allergies and Home Medications Allergies Allergy/AdvReac Type Severity Reaction Status Date / Time shellfish derived Allergy Unknown Nausea Verified 07/01/21 06:17 hydromorphone [From Dilaudid] AdvReac Severe Psychosis Verified 07/01/21 06:17 bupropion [From Wellbutrin] AdvReac Intermediate Rash and Verified 07/01/21 06:17 skin peeling Home Medication Medication Instructions Recorded lisinopril 30 mg tablet 30 mg PO DAILY #90 tab 03/10/21 acetaminophen 1,000 mg PO Q8H PRN PRN #90 cap 06/07/21 aspirin 81 mg PO BID #60 tab 06/07/21 celecoxib [Celebrex] 200 mg PO BID #60 cap 06/07/21 Current Visit Medications: Current Medications Generic Name Dose Route Start Last Admin Trade Name Freq PRN Reason Stop Dose Admin Ringer's Solution 1,000 mls @ 100 mls/hr 07/01/21 06:00 IV 07/30/21 23:59 INFUSION COLIN Cefazolin Sodium/Dextrose 2 gm in 50 mls @ 100 mls/hr 07/01/21 06:00 Ancef Duplex IVPB 07/01/21 16:00 PREOP COLIN IV Miscellaneous Supplies 1 each 07/01/21 06:00 Iv Access IV 07/30/21 23:59 DIRECTED COLIN Sodium Chloride 0 ml 07/01/21 06:00 Normal Saline Flush 10 Ml Syr IV 07/30/21 23:59 PRN PRN Sodium Chloride 0 ml 07/01/21 06:00 Normal Saline 10 Ml Vial IJ 07/30/21 23:59 DIRECTED PRN Sterile Water 0 ml 07/01/21 06:00 Water,Injection,Sterile 10 Ml Vial IJ 07/30/21 23:59 DIRECTED PRN PFSH Active Problems Active Problems: Problem Status Onset Code History of left hip replacement Z96.642 Hypertension I10 S/P arthroscopy of right shoulder 11/05/20 Z98.890 Painful orthopaedic hardware T84.84XA Retained orthopedic hardware 07/16/19 Z96.9 Smoker F17.200 Tendonitis of long head of biceps brachii of right shoulder M75.21 Bursitis of right shoulder M75.51 Right rotator cuff tear M75.101 Status post right rotator cuff repair Z98.890 Degenerative joint disease of left hip M16.12 Medical History Medical History Foreign body in eye GERD (gastroesophageal reflux disease) Hearing loss Hiatal hernia Leg fracture, right Tibia/fibula fracture, shaft (~1988) Surgical History Surgical History H/O hand surgery Tendon repair - Left thumb Cellulitis right hand - I and D H/O hernia repair Left inguinal History of lumbar surgery x3 History of repair of left rotator cuff History of total right knee replacement (TKR) (07/16/19) 07/16/19 Hx of total hip arthroplasty Left Tobacco Smoking/Tobacco Use Status: Current every day Tobacco Type: cigarettes Smoking cigarettes per day: 4 Quit Status: considering quitting Alcohol Alcohol Intake: current Alcohol intake frequency: a few times a month Alcohol type: beer Details: ETOH -- none Substance Use Substance use: Never Substance use type: does not use Vital Signs and Lab Results Lab Results Blood Type / Crossmatch: Patient ABO/Rh A Positive 06/04/21 Antibody Screen NEGATIVE 06/04/21 Complete Blood Count: White Blood Count 8.92 10^3/uL (4.4-10.8) 06/04/21 08:30 06/04/21 Red Blood Count 5.00 10^6/uL (4.36-5.78) 06/04/21 08:30 06/04/21 Hemoglobin 15.4 g/dL (13.5-17.5) 06/04/21 08:30 06/04/21 Hematocrit 46.4 % (40.0-50.0) 06/04/21 08:30 06/04/21 Platelet Count 205 10^3/uL (130-400) 06/04/21 08:30 06/04/21 Complete Metabolic Panel: Sodium Level 140 mmol/L (136-145) 06/04/21 08:30 06/04/21 Potassium Level 4.3 mmol/L (3.5-5.1) 06/04/21 08:30 06/04/21 Chloride Level 103 mmol/L (98-107) 06/04/21 08:30 06/04/21 Carbon Dioxide Level 29.3 mmol/L (21.0-32.0) 06/04/21 08:30 06/04/21 Blood Urea Nitrogen 22 mg/dL (7-18) H 06/04/21 08:30 06/04/21 Creatinine 1.1 mg/dL (0.70-1.30) 06/04/21 08:30 06/04/21 Estimated GFR/1.73 m2 >= 60.00 (mL/min/1.73m2) 06/04/21 08:30 06/04/21 Calcium Level 9.2 mg/dL (8.5-10.1) 06/04/21 08:30 06/04/21 Glucose Level 96 mg/dL (74-106) 06/04/21 08:30 06/04/21 Liver Function Panel: No Data to Display Coagulation Panel: No Data to Display Cardiac Panel: No Data to Display Arterial Blood Gas: No Data to Display Venous Blood Gas: No Data to Display Pancreas Panel: No Data to Display Thyroid Panel: No Data to Display Infectious Disease: Coronavirus (COVID-19)(PCR) Negative (Negative) 06/30/21 08:31 06/30/21 Coronavirus 2019 Source Nasal/Nares 06/30/21 08:31 06/30/21 Blood Cultures: No Data to Display Toxicology Panel: 2 No Data to Display Anesthesia Assessment and Plan Anesthesia History Personal History: No History of Anesthesia Complications Family History: No Family History of Anesthesia Complications Exercise Tolerance Exercise Tolerance: Metabolic Equivalents>4 Cardiac & Pulmonary Exam Cardiac Exam: Normal S1/S2 Heart Sounds Pulmonary Exam: Clear Bilateral Breath Sounds Implantable Cardiac Device Does patient have a Pacemaker or an ICD?: No Airway Exam Known Difficult Airway: No Mallampati Class: 2 Mouth Opening: Normal (> 3cm) Thyromental Distance: Greater than 3 cm Neck Range of Motion: Full ROM Neck Circumference: Normal Teeth Condition: Normal Dentition ASA Classification ASA Score: ASA 2 Emergency Case?: No NPO Status NPO Status: NPO Clears >2 hours, Solids >8 hours Anesthesia Plan Resuscitation Status: Full Code Anesthesia Technique: General Anesthesia Airway Planned: Endotracheal Tube Pain Management: Surgeon and patient request nerve block Monitors Used: Standard Monitors Preoperative Comments:: 56 yo male for shoulder arthroscopy. Sig PMHx: DJD, smoker, HTN (lisinopril), GERD, denies major health history change. Previous anes: multiple previous without apparent complications. Mac 3 grade 1. 6/10 pain on discharge at bicep tend site. did require phenyl gtt during last shoulder.
[2021-07-01] VITALS (9 sets, daily range): BP systolic 107–131; BP diastolic 62–93; PULSE 72–81; RESP 13–17; TEMP 36.4–37; O2SAT 92–99; BMI 29.9
[2021-07-01] MEDS: Lactated Ringers 1,000 ML 100 ML IV (06:44)
--- NOTE | 2021-07-01 06:57 | W.ANESNERVE ---
Nerve Block Single Injection Procedure Date and Time Date Performed: 07/01/21 Procedure Start: 07:14 Location Where Procedure Performed Procedure Location: Day Surgery Unit Reason Performed: Postoperative Analgesia Requesting Provider: Jian Blevins Timeout Performed Timeout Performed: Yes Monitoring Used ECG, Blood Pressure and SpO2 Sterility Sterility: Hand Hygiene, Surgical Cap, Surgical Mask, Sterile Gloves and Chlorhexidine Sedation Given During Procedure Sedation Given (Indicate Dose Given): Versed IV Dose:: 2 mg Patient Mental Status Patient Mental Status: Sedate with meaningful communication Nerve Block 1st Nerve Block: Laterality: Right Block Type: Interscalene Needle / Catheter Used: 100mm SonoPlex II Local Anesthetic Bolus (Indicate Dose Given): Lidocaine used for local infiltration of skin, Injected in 3-5ml increments after negative blood aspiration, Bupivacaine 0.5% Dose:: 15 mL and Exparel Dose:: 10 mL Additives (Indicate Dose Given): None Ultrasound: Sterile probe cover and gel used Ultrasound Image Saved?: Yes Nerve Stimulator: Not Used Paresthesia: None Procedure Tolerated: No Complications Procedure Outcome: Successful Performed By: Ankit Cazares
[2021-07-01] MEDS: ceFAZolin 2 GM/50 ML BAG IVPB (08:20)
[2021-07-01] MEDS: fentaNYL 100 MCG/2 ML VIAL IVP ×2 (12:00→12:13)
--- NOTE | 2021-07-01 12:48 | W.ANESPOSTOP ---
Postoperative Evaluation Date, Time and Location Date Performed: 07/01/21 Time Performed: 12:48 Patient Location: Day Surgery Unit Vital Signs Most Recent Imported Vital Signs: Most Recent Vital Signs Temp Pulse Resp BP Pulse Ox 36.4 C L 81 14 131/85 92 07/01/21 12:25 07/01/21 12:25 07/01/21 12:13 07/01/21 12:25 07/01/21 12:25 Pain Score Most Recent Pain Score: Most Recent Pain Score Pain Level 7 07/01/21 12:13 Assessment Mental Status: Awake (Alert & Oriented to Patient Baseline) Airway and Respiratory Function: Patent airway with normal (patient baseline) respiratory exam Cardiovascular Function: Hemodynamically Stable Hydration Status: Adequately Hydrated Nausea & Vomiting: No Nausea or Vomiting Pain: Pain is tolerable per patient Peripheral Nerve Block: Regional nerve block not resolved at time of post operative discharge
--- NOTE | 2021-07-01 13:38 | ROE_ITS ---
Date of service: 07/01/21 Time of Service: 07:30 Operative Note Operative Note DATE OF PROCEDURE: 07/01/21 PRE-OP DIAGNOSIS: Right: 1. Rotator cuff re-tear 2. Bursitis 3. Impingement POST-OP DIAGNOSIS: same PROCEDURE: Right: 1. Revision rotator cuff repair, CPT# 63155. This involved re-repair of the supraspinatus using anchors and sutures to reattach the rotator cuff back to the footprint of the greater tuberosity with allograft augmentation. 2. Revision extensive debridement, CPT# 06718. This involved using arthroscopic hand instruments, power instruments, and radiofrequency instruments to remove suture material from the articular side supraspinatus, debride chondromalacia about the greater tuberosity, debrided synovitis superiorly and posteriorly. 3. Revision subacromial decompression, CPT# 20387. This involved using arthroscopic power instruments and a radiofrequency wand to complete a bursectomy. The assistant activities director was medically required in order to help assist in techniques above, which require positioning the arm, holding the arthroscope, and manipulating multiple instruments and sutures at the same time. This cannot be done without the help of an experienced assistant activities director. SURGEON: Jian Blevins CRUSHER ASSEMBLER: Cathy Covington ANESTHESIA TYPE: General LMA/ETT and Primary Nerve Block Refer to Anesthesia Record ESTIMATED BLOOD LOSS: 25 PATHOLOGY: none sent COMPLICATIONS: None Patient was transported to: PACU Patient's condition: stable Implants: Arthrex: 4.75mm knotless SwiveLocks x 2, 2.9mm PushLock x2, TissueTak staple x6, and 25 x 30 x 1 mm ArthroFlex decellularized dermis allograft Indications: Please see complete medical record for details. Findings: Exam under anesthesia: Full range of motion, no instability Glenohumeral joint: Significant superior and posterior synovitis. Fibrocartilage moderate healing over the prior superior humeral head microfracture site with no longer visible bony defect or metallic screw. Partial healing subscapularis with residual longitudinal defect, but intact at tachment to the lesser tuberosity. Biceps tendon prior tenodesis absent from joint. Approximately 50% partial articular sided and superior capsule containing the majority of the rotator cable and moderately retracted partial supraspinatus rotator cuff tear. Loose FiberTape from prior medial side to side repair. Intact medial row anchor and knotless [id number] repair. No evidence of infection. Subacromial space: Significant bursitis. Largely intact and apparently healthy bursal rotator cuff with significant intact tissue about greater tuberosity. Limited small about 1 cm defect at the medial margin of the greater tuberosity longitudinal at the prior site of side to side repair. No additional failure of repair dorsally with the remainder of the side to side repair over the greater tuberosity bone and anchor healed. No prominent hardware. Procedure Description: In the operating room, general anesthesia was induced. The patient was positioned on the beachchair table. All bony prominences were well-padded. Preoperative antibiotics were held for cultures. The right shoulder was prepped and draped in the usual sterile fashion. The correct patient, procedure, and side of the procedure were all verified prior to incision. The prior posterior portal was used to access the glenohumeral joint. Pituitary rongeur and tissue graspers were used to obtain synovitis samples as well as remove the FiberTape material from the area of articular sided supraspinatus read tearing.. Specimens were into 2 samples and sent to the lab for aerobic anaerobic culture. 2 g cefazolin antibiotic was administered. The superior and posterior synovitis was debrided to a stable margin. The subscapularis did not require rerepair. There is no additional prominent hardware in the joint. The superior labrum had a nice contour from prior biceps tenodesis. Prior microfracture site demonstrated moderate healing did not require additional intervention. A switching stick was left in the joint through the anterior portal. The posterior portal was redirected to the subacromial space. There was significant bursitis that had to be excised centrally and laterally. There is no additional subacromial bone spur. The prior anterior superior lateral, lateral, and posterior superior lateral portals were established. Thorough inspection of the rotator cuff was completed revealing an unusual and challenging read tear pattern involving a small longitudinal rent about 1 cm medial to the articular margin bursal he with a more significant fairly substantial majority supraspinatus about 50% tissue articular sided and moderately retracted tear containing the capsule and good healthy rotator cable tissue. Liberator's and elevators were used as well as shaver to debride tissue margins to healthy stable tissue. Viewing anteriorly into the glenohumeral joint and working carefully through the small full-thickness rent through bursal he instruments were used to free, mobilized, and graspers to confirm appropriate reduction of the articular tear to the medial articular margin. The medial articular margin was thoroughly debrided to optimize bone tendon healing again working centrally and anteriorly starting just posterior to the prior medial SwiveLock site that demonstrated tissue healing. Through this tear the plan was to deploy a medial row SwiveLock anchor to secure this articular critical tissue to the medial margin prior to closing the small longitudinal defect above. Self retrieving suture passer was used to pass 3 FiberLink's in cinch mode and this rotator cuff tissue. The undersized punch was used to place the first anchor centrally and medially with undersize chosen due to prior surgeries and concern for bone quality. Unfortunatelu, this posterior medial row anchor have collided with the metallic screw or encountered firm bone and the screw broke with about 50% insertion. Tested thoroughly unable to be removed or demonstrate any motion so remove the prominent screw threads in piecemeal tested once again and cut threads flush preserving repair with 3 FiberLink's containing the articular and rotator cable and superior capsule at the posterior medial aspect of repair. Repeated similarly with 2 FiberLink cinch mode anterior medial aspect of the superior capsule and rotator cable repair to an additional knotless SwiveLock anchor diverging from the prior repair and surgery sites. Articular repair to the medial margin over the prepared medial surface tuberosity. No additional defects of the small longitudinal tear barely visible from articular and now visible from bursal side slightly medial to the greater tuberosity. Well-healed fairly normal-appearing supraspinatus infraspinatus tissue about the greater tuberosity bony footprint and light laterally. Knotless mechanism from the second anchor was then used to securely bring together the side to side tear as well as bring this medial tissue additionally down compressed bone with a horizontal mattress suture bringing the repair stitch up the posterior aspect and the looped shuttling stitch up the anterior aspect so there would be a circumferential horizontal and compressive type stitch. Repair was inspected articular and bursal sides and felt to have fairly excellent reduction repair and fixation demonstrated even through shoulder range of motion. Given the failure of prior repair which I performed about 8 months ago, and this was a failure of prior repair done years ago, decision was made to proceed with augmentation to give patient and rotator cuff best chance of healing what has so far been quite difficult to heal. The Arthrex CuffMend system was used to deploy a dermal allograft over the central supraspinatus and extended medially over the majority the tendon and laterally over the greater tuberosity centered over the tear bursal articular zones in order to add collagen biology. The stapler was used to deploy 5 laine with graft adequately secured prior to removing the graft shuttling device and then completing FiberLink to posterior anterior and posterior posterior 2.9 mm push lock anchors with excellent draping of the graft over the rotator cuff and majority tendon footprint aspect of the greater tuberosity. The arm was rotated and the last 6 staple was applied anteromedially to best lay the allograft over the pit [place] tissue. The repair was inspected finally again from the articular and bursal sides had excellent tissue coverage personally and good repair of the significant undersurface layers medially. Shoulder was copiously irrigated with arthroscopic pump and normal saline. Portals were closed using 3-0 Monocryl in a buried interrupted fashion. Mastisol, Steri-Strips, Xeroform, and dry gauze were applied over the incisions followed by tape to secure the bandage to the shoulder. The patient awoke from anesthesia without complication and was transferred to the recovery room in a stable condition.
--- NOTE | 2021-07-01 13:38 | W.PM.DSUDISC ---
Discharge Plan Disposition Patient Disposition: HOME Condition: Stable Discharge Details Reason For Visit: Right shoulder surgery Attending Provider: Jian Blevins Primary Care Provider: Brayan Luke Home Meds and New Rx's Prescriptions: New aspirin 81 mg tablet,delayed release (DR/EC) 81 mg PO DAILY 14 Days Qty: 14 RF: 0 naproxen 250 mg tablet 250 - 500 mg PO BID PRNQty: 40 RF: 0 oxycodone 5 mg tablet 5 - 10 mg PO Q4H MDD 30 mg PRN (Reason: moderate to severe pain) Qty: 18 RF: 0 amoxicillin 500 mg capsule 500 mg PO TID 14 Days Qty: 42 RF: 0 Continued lisinopril 30 mg tablet 30 mg PO DAILY Qty: 90 RF: 4 acetaminophen 500 mg capsule 1,000 mg PO Q8H PRN PRNQty: 90 RF: 0 aspirin 81 mg tablet,delayed release (DR/EC) 81 mg PO BID Qty: 60 RF: 0 celecoxib [Celebrex] 200 mg capsule 200 mg PO BID Qty: 60 RF: 0 Discharge Instructions Additional Instructions: Surgery: Right shoulder arthroscopy with revision supraspinatus rotator cuff repair with allograft augmentation, extensive debridement, and subacromial decompression. Activity: For 6 weeks, you should keep your arm at your side in a neutral position at all times except for physical therapy. Please do as little activity as possible involving your right shoulder. Do not try to lift or raise your arm using your own muscles. You should use the sling whenever you are out of the house. You may have to adjust the abduction pillow or remove it for comfort. At home it is best to remove the sling and rest the arm on a pillow at your side or support the operative side with your other hand. A physical therapy prescription will be sent electronically to begin in about 4 weeks. Prescriptions: Amoxicillin 500 mg take 1 3-times each day as infection prophylaxis for 14 days Aspirin 81 mg take 1 daily to prevent a blood clot for 2 weeks Naproxen 250 mg take 1-2 every 12 hours with a meal as needed for moderate pain. Do not use at same time as Celebrex or ibuprofen. Please limit these NSAID medicines as they may interfere with tendon healing. Oxycodone 5 mg take 1-2 every 4-6 hours as needed for severe pain You may use ygdu-efk-fdaqxxy Tylenol (acetaminophen) as needed for mild pain. These pain medications may be taken all at once or in different combinations as needed. Also, recommend Colace (docusate) as a stool softener as surgery and pain medicine cause constipation. Dressings: Remove shoulder bandage after 3 days. Leave the sticky Steri-Strips in place until they fall off or remove them after you shower. Cover the incisions with Band-Aids or leave them open to air. You may shower after 5 days. Follow-up: 10-[address] Blevins You may take off the leg compression stockings this evening at home. You may also leave them on a few days longer if you have a history of leg swelling or edema. Let us know right away if you develop any redness, drainage, fevers, chest pain, or trouble breathing. Do not drink alcohol or drive for at least 24 hours after anesthesia. Please call the office during business hours with any questions or concerns. Referrals: Jian Blevins MD [ [facility] STAFF PHYSICIAN] - Discharge Orders Discharge Orders: Discharge Order (Routine); Ordered 07/01/21 Ordered By: Jian Blevins DS: Diagnosis Discharge Diagnosis (1) Right rotator cuff tear: Status: Acute
== END 2021-07-01 14:23 | disposition home or self-care (01) ==
PROVIDERS: PCP Nurse Practitioner Family; Visit Provider Student in an Organized Health Care Education/Training Program
PROC: (CPT 29827; principal; 2021-07-01 07:30)
DX: S46.011A Strain of muscle(s) and tendon(s) of the rotator cuff of right shoulder, initial encounter (principal); M75.41 Impingement syndrome of right shoulder; M75.51 Bursitis of right shoulder; X58.XXXA Exposure to other specified factors, initial encounter
CPT/HCPCS: 29827; 29826; 29823; 76942; 87070; 87075; 87205; J0690; J1100; J1885; J2001; J2250; J2370; J2405; J3010

== ENCOUNTER → 2021-11-16 01:03 | Outpatient (CLI) | payer OTHER, SELFPAY ==
--- NOTE | 2021-11-16 06:45 | DI.MRI_ITS ---
Exam(s) MR UPPER JOINT RT WO EXAM: MR UPPER JOINT RT WO CLINICAL HISTORY: S/P RTC REPAIR, CONTINUED DISCOMFORT,strain,s46.011d,bicipital tendinitis,. TECHNIQUE: Multiplanar multisequence MRI was performed. COMPARISON: None. FINDINGS: BONES: There is no fracture or contusion pattern. Spurring at the tip of the acromion. Prior rotator cuff repair surgery with postsurgical defects in the humeral head is well as some surrounding metall ic artifact. JOINTS: The acromioclavicular joint contains some fluid. No significant inferior spurring. The mike ohumeral joint shows a small amount of fluid.. There is fluid in the subacromial subdeltoid bursa, g reater than on the previous exam. TENDONS: Supraspinatus: Thickened with some high high signal but no definite disruption. Infraspinatus: Unremarkable. Subscapularis: Unremarkable. Teres Minor: Unremarkable. Long head biceps tendon: Severely attenuated or torn and retracted.. MUSCLES: Subscapularis muscle atrophy. No significant supraspinatus atrophy. GLENOID LABRUM: Unremarkable on this noncontrast examination. SOFT TISSUES: Unremarkable. IMPRESSION: S/p multiple rotator cuff tendon repair surgeries. Biceps tendon is not visible, either severely atte nuated or torn. Tendinosis of the supraspinatus. DATA REPOSITORY:
== END ==
PROVIDERS: PCP Nurse Practitioner Family; Visit Provider Student in an Organized Health Care Education/Training Program
DX: M75.21 Bicipital tendinitis, right shoulder (principal); S46.011D Strain of muscle(s) and tendon(s) of the rotator cuff of right shoulder, subsequent encounter; X58.XXXD Exposure to other specified factors, subsequent encounter
CPT/HCPCS: 73221

== ENCOUNTER 2021-12-07 02:33 | Outpatient (CLI) | payer OTHER, BC, SELFPAY ==
[2021-12-07 08:42] LABS: ESR 3 mm/hr (0-20)
[2021-12-07 08:43] LABS: Abs Immature Grans 0.05 10^3/uL (0.0-0.06); Absolute Basophil Count 0.07 10^3/uL (0.0-0.2); Absolute Eosinophil Count 0.37 10^3/uL (0.0-0.7); Absolute Lymphocyte Count 1.98 10^3/uL (1.2-3.4); Absolute Monocyte Count 0.55 10^3/uL (0.1-0.8); Absolute Neutrophil Count 4.54 10^3/uL (1.2-6.7); Basophils % 0.9; Eosinophils % 4.9; HCT 47.3 % (40.0-50.0); HGB 15.9 g/dL (13.5-17.5); Immature Grans % 0.7; Lymphocytes % 26.2; MCH 30.4 pg (27.0-33.0); MCHC 33.6 % (32.0-36.0); MCV 90 fL (80-95); MPV 9.5 fL (8.0-11.0); Monocytes % 7.3; Platelet Count 210 10^3/uL (130-400); RBC 5.23 10^6/uL (4.36-5.78); RDW 12.4 % (11.8-14.1); RDW-SD 41.1 fL; WBC 7.56 10^3/uL (4.4-10.8)
[2021-12-07 09:17] LABS: C-Reactive Protein 0.18 mg/dL (0.0-0.3)
== END 2021-12-07 02:34 | disposition home or self-care (01) ==
LOC: LBO 02:33
PROVIDERS: PCP Nurse Practitioner Family; Visit Provider Student in an Organized Health Care Education/Training Program
DX: M25.511 Pain in right shoulder; S46.011D Strain of muscle(s) and tendon(s) of the rotator cuff of right shoulder, subsequent encounter; Z98.890 Other specified postprocedural states
CPT/HCPCS: 36415; 85652; 85025; 86140

== ENCOUNTER 2022-05-26 09:35 | Outpatient (CLI) | payer OTHER, SELFPAY ==
--- NOTE | 2022-05-26 06:00 | DI.RAD_ITS ---
Exam(s) XR PAIN CLINIC FLUORO JOINT IN EXAM: XR PAIN CLINIC FLUORO JOINT IN CLINICAL HISTORY: Dx: Adhesive capsulitis of right shoulder TECHNIQUE: 2D and realtime digital imaging was performed. CONTRAST MATERIAL: Refer to procedure report. COMPARISON: No exams were available for comparison FINDINGS: Fluoroscopy was provided for Dr. Zaragoza during the performance of a right shoulder block. Please refe r to the procedure report for complete details. Ka,r=5.49 mGy IMPRESSION:
[2022-05-26 10:04] VITALS: BP 135/81; PULSE 70; RESP 20; TEMP 36.9; O2SAT 97
--- NOTE | 2022-05-26 11:15 | PDOC.PAIN ---
Date of service: 05/26/22 Time of Service: 11:28 Pain Clinic Procedure Note Procedure Note Procedure Note: Right Shoulder nerve block PROCEDURE NOTE Date of Service: May 26, 2022 Patient: Reji Coulter Provider: Levi Zaragoza DO, MPH Pre Operative Diagnosis: Shoulder Pain Post Operative Diagnosis: Same Pre-procedure pain: VAS= 7/10 PROCEDURE: 1. Block of the Suprascapular articular branch from the Suprascapular Nerve 2. Block of the Axillary articular branch from the Axillary Nerve 3. Block of the Lateral Pectoral articular branch from the Lateral Pectoral Nerve Reji Coulter was brought to the procedure room and placed on the exam table in a comfortable supine position for the posterior blocks of the Suprascapular and Axillary nerve branches. The target site for needle placement was obtained by manual palpation with radiographic confirmation. The sterile field was prepared using chloroprep and sterile drapes. Local anesthesia superficial and deep was provided by local infiltration of 2% lidocaine. Target sites were identified under fluoroscopic guidance followed by the injection of 0.5 cc Omnipaque. Once the target site was confirmed, I injected 0.5cc of 0.5% Bupivacaine. The needles were withdrawn without difficulty. The patient was rotated after the completion of the posterior Suprascapular and Axillary nerve branch nerve blocks to a prone position to perform the anterior ablation of the Lateral Pectoral nerve branch. The target site for needle placement was obtained by manual palpation with radiographic confirmation. The sterile field was prepared using chloraprep and sterile drapes. Local anesthesia superficial and deep was provided by local infiltration of 2 cc of 2% Lidocaine. The target sites were identified under fluoroscopic guidance followed by the injection of 0.5 cc Omnipaque. Once the target site was confirmed, I injected 0.5cc of 0.5% Bupivacaine. The needles were withdrawn without difficulty. POST PROCEDURE EVALUATION: IMPRESSION: 1. The patient will be contacted in 2 weeks to see how he is doing. 2. Estimated Blood Loss: < 5ml 3. Medications that were given are documented in MAR Post-procedure pain VAS was 3/10 Follow up plans and appointments were discussed with the Reji . Post procedure instruction was given as documented in nursing documentation and having met discharge criteria, Reji was discharged from the [facility]. COMMENTS: No complications. He will give us a call with his 1-4 hour post-procedure pain VAS scores and activities. Levi Zaragoza DO, MPH [facility]
[2022-05-26] MEDS: Bupivacaine 0.5% Pres-Free 10 ML VIAL IJ (11:18)
[2022-05-26] MEDS: Omnipaque 240 MG/ML 50 ML BTL IJ (11:19)
[2022-05-26 11:20] VITALS: PULSE 71; RESP 18; O2SAT 99
== END 2022-05-26 09:36 | disposition home or self-care (01) ==
LOC: PC 09:35
PROVIDERS: PCP Nurse Practitioner Family; Visit Provider Preventive Medicine Occupational Medicine
DX: M25.511 Pain in right shoulder (principal)
CPT/HCPCS: 64418; 64450; 77002; Q9967

== ENCOUNTER 2022-07-07 11:36 | Outpatient (CLI) | payer OTHER, SELFPAY ==
[2022-07-07 11:47] VITALS: BP 147/92; PULSE 81; RESP 20; TEMP 37; O2SAT 95
[2022-07-07] MEDS: Midazolam 2 MG/2 ML VIAL IVP (12:19)
[2022-07-07] MEDS: fentaNYL 100 MCG/2 ML VIAL IVP ×3 (12:19→12:53)
[2022-07-07 13:11] VITALS: BP 151/91; PULSE 77; RESP 18; O2SAT 96
--- NOTE | 2022-07-07 13:16 | PDOC.PAIN_ITS ---
Date of service: 07/07/22 Time of Service: 13:20 Pain Clinic Procedure Note Procedure Note Procedure Note: Right Shoulder Radiofrequency with Coolief Machine PROCEDURE NOTE Date of Service: July 07, 2022 Patient: Reji Coulter Provider: Levi Zaragoza DO, MPH Pre Operative Diagnosis: Right Shoulder Pain Post Operative Diagnosis: Same Pre-procedure pain: VAS= 6/10 PROCEDURE: 1. Ablation of the Suprascapular articular branch from the Suprascapular Nerve 2. Ablation of the Axillary articular branch from the Axillary Nerve 3. Ablation of the Lateral Pectoral articular branch from the Lateral Pectoral Nerve Reji Coulter was brought to the procedure room and placed on the exam table in a comfortable supine position for the posterior ablations of the Suprascapular and Axillary nerve branches. The target site for needle placement was obtained by manual palpation with radiographic confirmation. The sterile field was prepared using chloroprep and sterile drapes. Local anesthesia superficial and deep was provided by local infiltration of 2% lidocaine. The patient was rotated after the completion of the posterior Suprascapular and Axillary nerve branch ablations to a prone position to perform the anterior ablation of the Lateral Pectoral nerve branch. The target site for needle placement was obtained by manual palpation with radiographic confirmation. The sterile field was prepared using chloraprep and sterile drapes. Local anesthesia superficial and deep was provided by local infiltration of 2% Lidocaine. A 17g 75 mm radiofrequency introducer needle with a 2 mm active tip was placed overlying the right shoulder joint. For the suprascapular target the introducer was placed inferior to the spinoglenoid notch on the most lateral border of the glenoid fossa rim and then redirected inferiorly approximately 4mm for the 2nd lesion. For the axillary target the introducer was advanced to the inferior most lateral border of the greater tubercle and then repositioned approximately 4mm inferiorly for the 2nd lesion. For the lateral pectoral target the introducer was placed at the midpoint of the coracoid process. All imaging was done using fluoroscopy. Attempted aspiration yielded no blood. Lateral x-ray views showed all the needles at proper depth. Motor stimulation was tested ad 2.0 volts with no arm movement. Images were saved in AP and lateral. A mixture consisting of 2% Lidocaine was slowly injected. Then a radiofrequency ablation of each of the shoulder nerve branches (suprascapular, axillary, and lateral pectoral) were done at 80 degrees Celsius for 2 minutes and 30 seconds each. I then injected 1/4 cc of Depomedrol (40 mg/cc) to each sensory nerve and this was flushed with 0.5cc of 0.5% Bupivacaine. The needles were withdrawn. POST PROCEDURE EVALUATION: IMPRESSION: 1. The patient will be contacted in 4-6 weeks for follow up. 2. Estimated Blood Loss: < 5ml 3. Fluoroscopy time: per report 4. Medications that were given are documented in MAR Follow up plans and appointments were discussed with the Reji . Post procedure instruction was given as documented in nursing documentation and having met discharge criteria, Reji was discharged from the [facility]. COMMENTS: No complications. F/U with our office as needed. Levi Zaragoza DO, MPH [facility]Pain [facility]
--- NOTE | 2022-07-07 13:20 | DI.RAD_ITS ---
Exam(s) XR PAIN CLINIC FLUORO JOINT IN EXAM: XR PAIN CLINIC FLUORO JOINT IN CLINICAL HISTORY: Dx: Shoulder Pain TECHNIQUE: 2D and realtime digital imaging was performed. Radiologist not present. CONTRAST MATERIAL: None. COMPARISON: No exams were available for comparison FINDINGS: Fluoroscopy was provided for pain management therapy. Please refer to procedure report or details. Radiation Exposure Index: Kar=6.76 mGy IMPRESSION: As above. RADIATION DOSE DELIVERED:
[2022-07-07] MEDS: Bupivacaine 0.5% Pres-Free 10 ML VIAL IJ (13:35)
[2022-07-07] MEDS: methylPREDNISolone ACETATE 40 MG/ML VIAL IJ (13:36)
[2022-07-07] MEDS: Lidocaine 2% Pres-Free 5 ML VIAL IJ (13:36)
== END 2022-07-07 11:37 | disposition home or self-care (01) ==
PROVIDERS: PCP Nurse Practitioner Family; Visit Provider Preventive Medicine Occupational Medicine
DX: M25.511 Pain in right shoulder (principal)
CPT/HCPCS: 64634; 64640; 77002; J1030; J2250; J3010

== ENCOUNTER 2022-10-05 10:57 | Outpatient (CLI) | payer OTHER, SELFPAY ==
--- NOTE | 2022-10-05 08:45 | DI.RAD_ITS ---
Exam(s) XR SHOULDER RT COMPLETE 2+V EXAM: XR SHOULDER RT COMPLETE 2+V CLINICAL HISTORY: Right shoulder pain. TECHNIQUE: 2D digital imaging was performed. Five views. COMPARISON: CT CT UPPER EXTREMITY RT WO from 10/04/2022 FINDINGS: BONES: No acute fracture is present. No bony destructive lesion is seen. Mild spurring at the unders urface of the acromion. Metallic anchors seen in humeral head and upper humeral shaft. JOINTS: No dislocation present. Mild spurring at the rim of the glenoid. The acromial humeral space appears normal. SOFT TISSUE: Normal. IMPRESSION: Degenerative and postsurgical changes. DATA REPOSITORY: RADIATION DOSE DELIVERED:
== END 2022-10-05 10:58 | disposition home or self-care (01) ==
LOC: DIORS 10:58
PROVIDERS: PCP Nurse Practitioner Family; Visit Provider Student in an Organized Health Care Education/Training Program
DX: M75.01 Adhesive capsulitis of right shoulder (principal); M25.511 Pain in right shoulder; M25.811 Other specified joint disorders, right shoulder
CPT/HCPCS: 73030

== ENCOUNTER 2022-11-04 01:18 | Outpatient (CLI) | payer OTHER, SELFPAY ==
[2022-11-04 12:41] LABS: Hemoglobin A1C 5.7 % (<5.7)
[2022-11-04 13:09] LABS: TSH (W/Ref FT4) 1.87 uIU/mL (0.36-3.74); Vitamin B12 486 pg/mL (193-986)
[2022-11-08 13:37] LABS: Albumin 63.5 % (55.8-66.1); Albumin g/dL 4.2 g/dL (3.6-5.2); Total Protein 6.6 g/dL (6.3-8.2)
== END 2022-11-04 01:19 | disposition home or self-care (01) ==
LOC: LOS 01:18
PROVIDERS: PCP Nurse Practitioner Family; Visit Provider Nurse Practitioner Family
DX: G62.9 Polyneuropathy, unspecified (principal)
CPT/HCPCS: 36415; 82607; 83036; 84165; 84443

== ENCOUNTER 2022-12-08 06:13 | Day surgery (SDC) | payer OTHER, SELFPAY ==
--- NOTE | 2022-12-07 18:17 | W.ANESPRE ---
General Info Date of Service Date Performed: 12/08/22 Height: 6 ft Weight: 106.594 kg Body Mass Index (BMI): 31.8 Surgical Procedure: Operation Date: 12/08/22 07:40 Proposed Procedure Side Surgeon p Shoulder Reverse Total Arthroplasty, Possible Revision, Biceps Tenodesis, any other indicated procedures Right Jian Blevins MD Meds Allergies and Home Medications Allergies Allergy/AdvReac Type Severity Reaction Status Date / Time hydromorphone [From Dilaudid] AdvReac Severe Psychosis Verified 12/07/22 11:48 bupropion [From Wellbutrin] AdvReac Intermediate Rash and Verified 12/07/22 11:48 skin peeling shellfish derived AdvReac Unknown Nausea, Verified 12/07/22 11:48 projectile vomiting Home Medication Medication Instructions Recorded acetaminophen 500 mg capsule 1,000 mg PO Q8H PRN PRN #90 caps 06/07/21 lisinopril 30 mg tablet 30 mg PO DAILY #90 tabs 02/15/22 Current Visit Medications: Current Medications Generic Name Dose Route Start Last Admin Trade Name Freq PRN Reason Stop Dose Admin Ringer's Solution 1,000 mls @ 30 mls/hr 12/08/22 06:00 IV 01/06/23 23:59 INFUSION COLIN Cefazolin Sodium/Dextrose 2 gm in 50 mls @ 100 mls/hr 12/08/22 06:00 Ancef Duplex IVPB 12/08/22 16:00 PREOP COLIN Tranexamic Acid 1,000 mg/ 60 mls @ 360 mls/hr 12/08/22 06:00 Sodium Chloride IVPB 12/08/22 16:00 PREOP COLIN IV Miscellaneous Supplies 1 each 12/08/22 06:00 Iv Access IV 01/06/23 23:59 DIRECTED COLIN Sodium Chloride 0 ml 12/08/22 06:00 Normal Saline Flush 10 Ml Syr IV 01/06/23 23:59 PRN PRN Sodium Chloride 0 ml 12/08/22 06:00 Normal Saline 10 Ml Vial IJ 01/06/23 23:59 DIRECTED PRN Sterile Water 0 ml 12/08/22 06:00 Water,Injection,Sterile 10 Ml Vial IJ 01/06/23 23:59 DIRECTED PRN PFSH Active Problems Active Problems: Problem Status Onset Code Peripheral neuropathy G62.9 Retained orthopedic hardware 07/16/19 Z96.9 Status post right rotator cuff repair Z98.890 Right rotator cuff tear M75.101 Smoker F17.200 Tendonitis of long head of biceps brachii of right shoulder M75.21 Bursitis of right shoulder M75.51 Painful orthopaedic hardware T84.84XA S/P arthroscopy of right shoulder 11/05/20 Z98.890 Hypertension I10 History of left hip replacement Z96.642 Sciatica M54.30 Adhesive capsulitis of right shoulder M75.01 Hyperlipemia E78.5 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 Right carpal tunnel syndrome G56.01 Right shoulder pain M25.511 Medical History Medical History Foreign body in eye Hearing loss Hiatal hernia Leg fracture, right Tibia/fibula fracture, shaft (~1988) Surgical History Surgical History H/O hand surgery Tendon repair - Left thumb Cellulitis right hand - I and D H/O hernia repair Left inguinal History of lumbar surgery x3 History of repair of left rotator cuff History of total right knee replacement (TKR) (07/16/19) 07/16/19 Hx of total hip arthroplasty Left Tobacco Smoking/Tobacco Use Status: Current every day Tobacco Type: cigarettes Smoking cigarettes per day: 8 Passive smoking exposure: Yes Alcohol Alcohol Intake: current Alcohol intake frequency: a few times a month Alcohol type: beer Details: ETOH -- none Substance Use Substance use: Never Substance use type: does not use Vital Signs and Lab Results Vital Signs Most Recent Vital Signs in EMR: Temp Pulse Resp BP Pulse Ox 36.3 C L 69 18 169/103 H 99 12/08/22 06:25 12/08/22 06:25 12/08/22 06:25 12/08/22 06:25 12/08/22 06:25 Lab Results Blood Type / Crossmatch: No Data to Display Complete Blood Count: No Data to Display Complete Metabolic Panel: No Data to Display Liver Function Panel: No Data to Display Coagulation Panel: No Data to Display Cardiac Panel: No Data to Display Arterial Blood Gas: No Data to Display Venous Blood Gas: No Data to Display Pancreas Panel: No Data to Display Thyroid Panel: No Data to Display Infectious Disease: No Data to Display Blood Cultures: No Data to Display Toxicology Panel: No Data to Display Anesthesia Assessment and Plan Anesthesia History Personal History: No History of Anesthesia Complications Family History: No Family History of Anesthesia Complications Exercise Tolerance Exercise Tolerance: Metabolic Equivalents>4 Cardiac & Pulmonary Exam Cardiac Exam: Normal S1/S2 Heart Sounds Pulmonary Exam: Clear Bilateral Breath Sounds Implantable Cardiac Device Does patient have a Pacemaker or an ICD?: No Airway Exam Known Difficult Airway: No Mallampati Class: 2 Mouth Opening: Normal (> 3cm) Thyromental Distance: Greater than 3 cm Neck Range of Motion: Full ROM Neck Circumference: Normal Teeth Condition: Normal Dentition ASA Classification ASA Score: ASA 2 Emergency Case?: No NPO Status NPO Status: NPO Clears >2 hours, Solids >8 hours Anesthesia Plan Resuscitation Status: Full Code Anesthesia Technique: General Anesthesia Airway Planned: Endotracheal Tube Pain Management: Surgeon and patient request nerve block Monitors Used: Standard Monitors Preoperative Comments:: 56 yo male for reverse total shoulder with sensitivity to hydromorphone. He has had increasing pain with previous right shoulder repair. Also has seen neurology about right lateral arm numbness (which has resolved) who performed an emg which showed mild to moderate right median neuropathy. Sig PMHx: DJD, smoker, HTN (lisinopril), GERD. denies major health history change. Previous anes: multiple previous without apparent complications. - Mac 3 grade 1. phenyl needed during shoulder. - 6/10 pain on discharge at bicep tend site for right shoulder scope in 2020(10 mL 0.5%/10 mL exparel). did require phenyl gtt during last shoulder. - 7/10 pain with 2021 shoulder (15 ml 0.5%/10 mL exparel) Plan: GA/ETT, interscalene block, +/- rescue PEC. We did discuss the risk of nerve injury especially given the pervious numbness tingling on the lateral forearm (which has seemingly resolved per the pt).
[2022-12-08] VITALS (13 sets, daily range): BP systolic 69–169; BP diastolic 39–103; PULSE 63–81; RESP 15–18; TEMP 36.3–36.9; O2SAT 90–99; BMI 31.8
[2022-12-08] MEDS: Lactated Ringers 1,000 ML 30 ML IV (06:50)
--- NOTE | 2022-12-08 07:06 | W.PM.DSUDISC ---
Date of service: 12/08/22 Time of Service: 14:00 Discharge Plan Disposition Patient Disposition: Home Condition: Stable Discharge Details Attending Provider: Jian Blevins Primary Care Provider: Brayan Luke Home Meds and New Rx's Prescriptions: New aspirin 81 mg tablet,delayed release (DR/EC) 81 mg PO DAILY 7 Days Qty: 7 0RF amoxicillin 500 mg capsule 500 mg PO TID 14 Days Qty: 42 0RF Bio-K plus 50 billion cell capsule,delayed release(DR/EC) 1 cap PO DAILY 14 Days Qty: 14 0RF naproxen 250 mg tablet 250 - 500 mg PO BID PRNQty: 40 0RF Rx Instructions: take with a meal oxycodone-acetaminophen [Percocet] 5-325 mg tablet 1 - 2 tab PO Q4H MDD 30 mg PRN (Reason: Moderate to severe pain) Qty: 18 0RF Continued lisinopril 30 mg tablet 30 mg PO DAILY Qty: 90 4RF Discharge Instructions Additional Instructions: Surgery: Right reverse total shoulder arthroplasty (subscap repair) with removal of hardware Activity: Do not lift anything heavier than a coffee. You should keep your arm at your side in a neutral position at all times except for gentle range of motion exercises, physical therapy, and essential activities. You should use the sling whenever you are out of the house. You may have to adjust the abduction pillow or remove it for comfort. At home it is best to remove the sling and rest the arm on a pillow at your side or support the operative side with your other hand. A physical therapy prescription will be sent electronically to start in about 3 weeks. Reverse TSA Protocol: Postoperative Weeks 0-6 ?Immobilization: Sling may be removed for therapeutic exercises, resting in bed or chair, and bathing ?Motion exercises: Pendulum exercises, elbow range- of-motion exercises, wrist xhena-zy-unxvqm exercises, and darkroom worker strengthening ?Restrictions: No active internal rotation or backwards extension Postoperative Weeks 6-12 ?Immobilization: Sling discontinued ?Motion exercises: Shoulder passive range of motion, advancing to active-assisted range of motion, and finally active range of motion with a goal of forward flexion to 90? and external rotation of 20? ?Strengthening exercises: Light, resisted forward flexion, external rotation, and abduction limited to isometric exercises and therapy bands with concentric motions only. Continue darkroom worker strengthening ?Restrictions: No resisted internal rotation or backwards extension. No scapular retraction exercises with therapy bands Postoperative Months 3-12 ?Motion exercises: Increase avqzi-dy-dnmrpe exercises to achieve full motion, with passive stretching at end ranges ?Strengthening: Begin resisted, internal rotation and backwards extension initially with isometric exercises advancing to light therapy bands and then weights. Advance other shoulder strengthening exercises to include the rotator cuff, deltoid, and scapular stabilizers. Advance to functional strengthening, including plyometric exercises and core strengthening. Prescriptions: Amoxicillin 500 mg take 1 capsule 3 times each day to prevent an infection for 2 weeks Aspirin 81 mg take 1 daily to prevent a blood clot for 1 week Naproxen 250 mg take 1-2 every 12 hours with a meal as needed for moderate pain Oxycodone-acetaminophen 5-325 mg take 1-2 every 4-6 hours as needed for severe pain (contains Tylenol) You may use ipvj-you-tnilmit Tylenol (acetaminophen) as needed for mild pain. These pain medications may be taken all at once or in different combinations as needed. Also, recommend Colace (docusate) as a stool softener as surgery and pain medicine cause constipation. You may try bjaq-mrx-rrxjqzc diphenhydramine (Benadryl) 25-50 mg nightly as a sleep aid Lastly, recommend daily probiotic while on antibiotic. Dressings: Leave dressing in place until follow-up. Keep clean and dry at all times. No showers please. Follow-up: 10-[address] Blevins You may take off the leg compression stockings this evening at home. You may also leave them on a few days longer if you have a history of leg swelling or edema. Please call the office during business hours with any questions or concerns. Let us know right away if you develop any redness, drainage, fevers, chest pain, or trouble breathing. Do not drink alcohol or drive for at least 24 hours after anesthesia. Stand Alone Forms: Anesthesia Discharge Inst., [place].Nerve Block Instructions, Jonathan Herrera (DSU) Equipment/Supplies: Sling Diet:: As Tolerated Discharge Orders Discharge Orders: Discharge Order (Routine); Ordered 12/08/22 Ordered By: Jian Blevins Discharge Data Discharge Date/Time-TO BE ENTERED AT DEPARTURE: 12/08/22 16:17 DS: Diagnosis Discharge Diagnosis (1) Retained orthopedic hardware: Status: Resolved (2) Status post right rotator cuff repair: Status: Chronic (3) Right rotator cuff tear: Status: Acute (4) Neuropraxia of right upper extremity: Status: Acute
--- NOTE | 2022-12-08 07:11 | ROE_ITS ---
Date of service: 12/08/22 Time of Service: 07:30 Operative Note Operative Note DATE OF PROCEDURE: 12/08/22 PRE-OP DIAGNOSIS: Right shoulder: 1. Failed rotator cuff repairs and allograft augmentation 2. 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 Painful orthopedic hardware POST-OP DIAGNOSIS: same PROCEDURE: Right shoulder: 1. Reverse total shoulder arthroplasty, CPT # 28632 2. Removal of hardware, CPT# 78124: Retained prior metallic suture anchor humeral head The document control assistant was medically required as this procedure involves retraction, protection of neurovascular structures, and manipulation of multiple instruments and implants at the same time, which cannot be done without a skilled document control assistant. SURGEON: Jian Blevins FUNDRAISING DIRECTOR: Neetu Gee ANESTHESIA TYPE: Local By Surgeon, General LMA/ETT and Primary Nerve Block Refer to Anesthesia Record ESTIMATED BLOOD LOSS: 150 COMPLICATIONS: None Patient was transported to: PACU Patient's condition: stable Implants: [employer] modular glenoid system baseplate 24 mm +2mm LAT [employer] modular glenoid system central post 25 mm [employer] modular glenoid system peripheral locking screws 32 mm inferior, 24 mm superior, 28 mm posterior, 16 mm anterior [employer] modular glenoid system glenosphere 42 +4 mm lateralized [employer] humeral stem 135 degrees size 10 [employer] suture cup size 42 posterior offset [employer] humeral insert size 42+6 mm Indications: Please see complete medical record for details. Findings: Thinned, but otherwise largely intact subscapularis. Moderate subdeltoid adhesions. Failed medial aspect dermal allograft. On gross appearance largely intact supraspinatus and infraspinatus. Undersurface and intrasubstance moderate grade abnormalities, but again fairly strong healed rotator cuff tissue across the greater tuberosity. More focal central defect over the site of microfracture with apparent healing of scar cartilage over this site. No prominent metallic or other suture anchors. Numerous retained plastic suture anchors in the single metal corkscrew anchor. Retained appropriately secured permanent suture material for rotator cuff repair. No accessible biceps tenodesis intramedullary button. Biceps tenodesis indirectly examined and palpated below the pectoralis major without obvious abnormality. Procedure Description: In the operating room, general anesthesia was induced. The patient was positioned beachchair on the operating room table. All bony prominences were well-padded. Preoperative antibiotics were administered. The shoulder was prepped and draped in the usual sterile fashion for shoulder arthroplasty. The correct patient, procedure, and side of the procedure were all verified prior to incision. The deltopectoral approach was preinjected with local anesthetic containing epinephrine and taken to the anterior shoulder. Care was taken to bluntly dissect the interval between the deltoid and pectoralis major muscles and to identify the cephalic vein within its fat stripe. The the vein was mobilized laterally. Subdeltoid space and conjoined tendon were freed of adhesions. The long head of the biceps tendon was identified just lateral to the lesser tuberosity. The uppermost margin of the pectoralis major tendon was released from the proximal humerus. The bicipital groove was identified in between the greater and lesser tuberosities. A subscapularis peel was performed taking care to release the entire tendon in a full-thickness fashion from superior to inferior and lateral to medial while bringing the arm gradually into external rotation. Care was taken to avoid the axillary nerve by only working on the bone inferiorly and medially. The subscapularis was tagged using SutureTape in a Rylan-Samuel fashion and traction used confirm appropriate mobilization of the subscapularis tendon after gentle blunt dissection was used to free up the space anterior and posterior to it. The supraspinatus and infraspinatus were identified and debrided of obvious partial-thickness tearing. Appropriate coagulation was achieved especially interiorly. The anatomic neck was cut using an oscillating saw with the humeral head bone brought back table in case there was a need for future bone grafting. The proximal humeral protection plate was used to provisionally confirm suture cup and glenosphere size. The proximal humerus was then internally rotated and this dislocated position to debrided the supraspinatus and greater tuberosity more thoroughly. The majority of supraspinatus was removed until stable blevins infraspinatus wrapping around tissue. The dermal augmentation tissue was removed and placed into the first specimen cup. 2 portions of the supraspinatus healed and deficient areas were placed in the specimen cups #2 and 3. All visible permanent suture material was removed as all as a few permanent plastic suture anchors and placed into specimen #4. The remainder of the greater tuberosity was debrided of soft tissue. Remainder of permanent suture anchors were removed from the greater tuberosity. Reamers were started appropriately posterior to the bicipital groove taking care to maintain in line approach with the humeral canal. Sequential reaming was done from size 5 up to size 10. Next, the broaches were sequentially used to open the proximal humerus starting with a size 5 and going up to size 11, which was slightly oversized, and the size 10 sunk to a more appropriate level and sunk to the appropriate depth while maintaining approximately 25 degrees retroversion. There was excellent metaphyseal fit and rotational control of the proximal humerus with this size. The posterior offset guide was used to ream for the suture cup. Suture cup was partially reamed, additional permanent suture anchors removed, and then reaming completed more deeply. There was still some partial suture material and suture anchors that were completely removed deeper and more posterior. The wound was copiously irrigated with normal saline. Samples were passed off the field. Surgeon document control assistant and landfill [employer] field technician all changed clean gloves. Attention was then turned to the glenoid and retractors were placed and a circumferential release performed using the long head of the biceps remnant to remove soft tissue about the glenoid rim. Care was taken inferiorly to work on bone only between 5 and 7:00 o'clock and bluntly elevate tissues inferiorly. The VIP guide was placed on the glenoid and used to confirm placement and trajectory of the central guidepin. The guidepin was inserted and advanced just through the far cortex ensuring adequate central fixation length. Depth gauge was used to confirm length. The glenosphere sizer was used to confirm positioning and glenosphere size. The backside of the baseplate reamer and underside of glenosphere reamers were then used. There was appropriate eccentric reaming inferiorly and anteriorly. The central post drill was used, removed with the guidewire confirming appropriate socket preparation, and the glenoid prepared area copiously irrigated the baseplate was impacted and fully compressed onto the glenoid surface. The locking guide was then used to drill and place appropriately lengthed inferior, superior, anterior, and posterior screws. The [id number] reamer was used to confirm adequate peripheral reaming. The glenosphere was applied with the filer and sander and then impacted to engage the Johnston taper. It was then locked with appropriate countersinking of the setscrew. The glenosphere was inspected and found to have good fit, appropriate positioning, and no soft tissue or bony impingement. Attention was then turned back to the proximal humerus, which was delivered from the wound and maintained in external rotation.The humeral trial cup was connected. Trialing was commenced with +3 mm liner. The shoulder was reduced and taken through range of motion. Trial components were built up to +6 mm liner to achieve excellent stability and appropriate tension on the deltoid and conjoined tension. The trial components were removed from the proximal humerus. The wound was copiously irrigated with normal saline. A 2 mm drill was used to drill 2 drill holes in the bicipital groove for later subscapularis repair. The the proximal humeral stem and suture cup were assembled and brought over the proximal humerus. Suture tapes were placed superiorly inferiorly at the medial and lateral aspect of the suture cup. The lateral tapes were brought out the drill holes. A small amount of vancomycin powder was distributed in the proximal humerus. The humeral component and suture cup were impacted into place. It sat at the same level as the trial implants. The final liner was then connected, and range of motion, stability, and tension confirmed. The shoulder was copiously irrigated with Betadine and normal saline. The arm was placed in about 30 degrees of external rotation. Although somewhat thinned given appropriate surgeon and young age high activity level, the subscapularis was reduced and repaired using the pairs of SutureTape in a speed bridge type configuration. The arm was taken into more external rotation without any displacement of the subscapularis repair. The remainder of a total of 1.5 g vancomycin powder was distributed deeply about the shoulder and through subcutaneous tissues. The deltopectoral interval was well approximated. Subcutaneous tissue was irrigated then closed using 2-0 Monocryl in a buried interrupted fashion. Skin was closed using 3-0 Monocryl in a buried subcuticular fashion. Skin glue was applied to the incision. A silver impregnated bandage was placed over the incision. The extremity was placed into a shoulder immobilizer. The patient awoke from anesthesia without complication and was taken to the recovery room in stable condition.
--- NOTE | 2022-12-08 07:18 | W.ANESNERVE ---
Nerve Block Single Injection Procedure Date and Time Date Performed: 12/08/22 Procedure Start: 07:10 Location Where Procedure Performed Procedure Location: Day Surgery Unit Reason Performed: Postoperative Analgesia Requesting Provider: Jian Blevins Timeout Performed Timeout Performed: Yes Monitoring Used ECG, Blood Pressure and SpO2 Sterility Sterility: Hand Hygiene, Surgical Cap, Surgical Mask, Sterile Gloves and Chlorhexidine Sedation Given During Procedure Sedation Given (Indicate Dose Given): Versed IV Dose:: 2 mg and Precedex IV Dose:: 8 mcg Patient Mental Status Patient Mental Status: Sedate with meaningful communication Nerve Block 1st Nerve Block: Laterality: Right Block Type: Interscalene Ultrasound Image Saved?: Yes Needle / Catheter Used: 100mm SonoPlex II Local Anesthetic Bolus (Indicate Dose Given): Lidocaine used for local infiltration of skin, Bupivacaine 0.5% Dose:: 12 mL and Exparel Dose:: 10 mL Additives (Indicate Dose Given): None Ultrasound: Sterile probe cover and gel used Nerve Stimulator: Supplement to Ultrasound use and No twitch or parasthesia noted < 0.5 mA Paresthesia: None Procedure Tolerated: No Complications Procedure Outcome: Successful Performed By: Ankit Cazares
[2022-12-08] MEDS: ceFAZolin 2 GM/50 ML BAG IVPB (07:50)
--- NOTE | 2022-12-08 11:00 | DI.RAD_ITS ---
Exam(s) XR SHOULDER RT COMPLETE 2+V EXAM: XR SHOULDER RT COMPLETE 2+V INDICATION: Shoulder arthritis. COMPARISON: CR XR SHOULDER RT COMPLETE 2+V from 10/05/2022 TECHNIQUE: 2D digital imaging was performed. Two views., portable FINDINGS: A reverse shoulder prosthesis has been placed. The alignment appears satisfactory. There is a sma ll amount of residual postsurgical air in the soft tissues. DATA REPOSITORY: RADIATION DOSE DELIVERED:
[2022-12-08] MEDS: ePHEDrine 25 MG/5 ML Syringe IVP ×3 (12:43→13:20)
--- NOTE | 2022-12-08 14:06 | W.ANESPOSTOP ---
Postoperative Evaluation Date, Time and Location Date Performed: 12/08/22 Time Performed: 13:25 Patient Location: PACU Vital Signs Most Recent Imported Vital Signs: Most Recent Vital Signs Temp Pulse Resp BP Pulse Ox 36.9 C 72 17 101/61 94 12/08/22 13:38 12/08/22 13:38 12/08/22 13:38 12/08/22 13:38 12/08/22 13:38 Pain Score Most Recent Pain Score: Most Recent Pain Score Pain Level 0 12/08/22 13:38 Assessment Mental Status: Arousable with meaningful communication Airway and Respiratory Function: Patent airway with normal (patient baseline) respiratory exam Cardiovascular Function: Hemodynamically Stable Hydration Status: Adequately Hydrated Nausea & Vomiting: No Nausea or Vomiting Pain: Pain is tolerable per patient Peripheral Nerve Block: Regional nerve block not resolved at time of post operative discharge
[2022-12-08] MEDS: ceFAZolin 1 GM/50 ML BAG IVPB (15:16)
[2022-12-08] MEDS: Normal Saline Flush 10 ML SYR IV (15:17)
== END 2022-12-08 16:17 | disposition home or self-care (01) ==
PROVIDERS: PCP Nurse Practitioner Family; Visit Provider Student in an Organized Health Care Education/Training Program
PROC: (CPT 23472; principal; 2022-12-08 07:30)
DX: T84.84XA Pain due to internal orthopedic prosthetic devices, implants and grafts, initial encounter; M75.21 Bicipital tendinitis, right shoulder; M75.01 Adhesive capsulitis of right shoulder
CPT/HCPCS: 23472; 20680; 76942; 73030; 87070; 87075; 87205; C1781; J0131; J0690; J1100; J1885; J2001; J2250; J2371; J2405; J2704; J3475

== ENCOUNTER 2022-12-20 10:32 | Outpatient (CLI) | payer OTHER, SELFPAY ==
--- NOTE | 2022-12-20 10:15 | DI.RAD_ITS ---
Exam(s) XR SHOULDER RT COMPLETE 2+V EXAM: XR SHOULDER RT COMPLETE 2+V CLINICAL HISTORY: F/U RIGHT RTSA. TECHNIQUE: 2D digital imaging was performed. COMPARISON: CR XR SHOULDER RT COMPLETE 2+V from 12/08/2022 FINDINGS: Two views. There is stable position alignment of the components of the reverse prosthesis. No fracture or loose shirlene evident. IMPRESSION: Stable satisfactory appearance. DATA REPOSITORY: RADIATION DOSE DELIVERED:
== END 2022-12-20 10:33 | disposition home or self-care (01) ==
LOC: DIORS 10:33
PROVIDERS: PCP Nurse Practitioner Family; Referring Provider Nurse Practitioner Family; Visit Provider Physician Assistant
DX: Z96.611 Presence of right artificial shoulder joint (principal); Z98.890 Other specified postprocedural states
CPT/HCPCS: 73030

== ENCOUNTER 2023-01-31 09:22 | Outpatient (CLI) | payer OTHER, SELFPAY ==
--- NOTE | 2023-01-31 08:15 | DI.RAD_ITS ---
Exam(s) XR SHOULDER RT COMPLETE 2+V EXAM: XR SHOULDER RT COMPLETE 2+V CLINICAL HISTORY: F/U RIGHT RTSA. TECHNIQUE: 2D digital imaging was performed. COMPARISON: CR XR SHOULDER RT COMPLETE 2+V from 12/08/2022 CR XR SHOULDER RT COMPLETE 2+V from 12/20/2022 FINDINGS: Two views: Stable position alignment of the components of the recently placed right shoulder reverse prosthesis. No fracture or loosening evident. No remaining air in the soft tissues. IMPRESSION: Stable satisfactory appearance. DATA REPOSITORY: RADIATION DOSE DELIVERED:
== END 2023-01-31 09:23 | disposition home or self-care (01) ==
LOC: DIORS 09:22
PROVIDERS: PCP Nurse Practitioner Family; Referring Provider Nurse Practitioner Family; Visit Provider Student in an Organized Health Care Education/Training Program
DX: Z96.611 Presence of right artificial shoulder joint (principal); Z98.890 Other specified postprocedural states
CPT/HCPCS: 73030

== ENCOUNTER 2023-03-28 09:00 | Outpatient (CLI) | payer OTHER, SELFPAY ==
--- NOTE | 2023-03-28 08:00 | DI.RAD_ITS ---
Exam(s) XR SHOULDER RT COMPLETE 2+V EXAM: XR SHOULDER RT COMPLETE 2+V CLINICAL HISTORY: F/U REVERSE RIGHT TSA. TECHNIQUE: 2D digital imaging was performed. COMPARISON: CR XR SHOULDER RT COMPLETE 2+V from 01/31/2023 FINDINGS: Two views Satisfactory position alignment of the reverse prosthesis components. No fracture or loosening evide nt. IMPRESSION: Stable satisfactory appearance DATA REPOSITORY: RADIATION DOSE DELIVERED:
== END 2023-03-28 09:01 | disposition home or self-care (01) ==
LOC: DIORS 09:01
PROVIDERS: PCP Nurse Practitioner Family; Visit Provider Student in an Organized Health Care Education/Training Program
DX: Z96.611 Presence of right artificial shoulder joint (principal); Z47.1 Aftercare following joint replacement surgery
CPT/HCPCS: 73030

== ENCOUNTER 2023-07-04 11:28 | Outpatient (CLI) | payer OTHER, SELFPAY ==
--- NOTE | 2023-07-04 08:00 | DI.RAD_ITS ---
Exam(s) XR SHOULDER RT COMPLETE 2+V EXAM: XR SHOULDER RT COMPLETE 2+V CLINICAL HISTORY: F/U RIGHT RTSA. TECHNIQUE: 2D digital imaging was performed. Two images were obtained. Y and Grashey views were obt ained. COMPARISON: CR XR SHOULDER RT COMPLETE 2+V from 03/28/2023 FINDINGS: BONES: There are stable post operative changes of a right total reverse shoulder replacement present. No fracture or dislocation. JOINTS: The orthopedic hardware is in good position. No evidence of hardware loosening. SOFT TISSUE: The visualized lungs are clear. IMPRESSION: Stable postoperative changes. DATA REPOSITORY: RADIATION DOSE DELIVERED:
== END 2023-07-04 11:29 | disposition home or self-care (01) ==
PROVIDERS: PCP Nurse Practitioner Family; Visit Provider Student in an Organized Health Care Education/Training Program
DX: Z96.611 Presence of right artificial shoulder joint (principal); Z47.1 Aftercare following joint replacement surgery
CPT/HCPCS: 73030

== ENCOUNTER 2023-07-07 01:56 | Outpatient (CLI) | payer OTHER, SELFPAY ==
[2023-07-07 09:38] LABS: Abs Immature Grans 0.06 10^3/uL (0.0-0.06); Absolute Basophil Count 0.08 10^3/uL (0.0-0.2); Absolute Lymphocyte Count 2.36 10^3/uL (1.2-3.4); Absolute Neutrophil Count 4.48 10^3/uL (1.2-6.7); HCT 47.7 % (40.0-50.0); HGB 16.4 g/dL (13.5-17.5); Immature Grans % 0.7; Lymphocytes % 29.2; MCH 30.6 pg (27.0-33.0); MCHC 34.4 % (32.0-36.0); MCV 89 fL (80-95); MPV 9.8 fL (8.0-11.0); Monocytes % 8.7; Neutrophils % 55.4; Platelet Count 208 10^3/uL (130-400); RBC 5.36 10^6/uL (4.36-5.78); RDW 12.9 % (11.8-14.1); RDW-SD 42.4 fL; WBC 8.08 10^3/uL (4.4-10.8)
[2023-07-07 09:41] LABS: ESR 1 mm/hr (0-20)
[2023-07-07 09:58] LABS: C-Reactive Protein 0.31 mg/dL (0.0-0.3); CREATININE 1.1 mg/dL (0.70-1.30); Estimated GFR 77.33 (mL/min/1.73m2); Potassium 4.2 mmol/L (3.5-5.1)
== END 2023-07-07 01:57 | disposition home or self-care (01) ==
LOC: LBO 01:56
PROVIDERS: PCP Nurse Practitioner Family; Visit Provider Student in an Organized Health Care Education/Training Program
DX: I10 Essential (primary) hypertension (principal); Z96.611 Presence of right artificial shoulder joint
CPT/HCPCS: 36415; 85652; 82565; 84132; 85025; 86140